=== PATIENT | female | born 1940 | race African-American/Black ===

== ENCOUNTER → 2016-05-05 | Outpatient (CLI) | payer MEDICARE, OTHER ==
[2014-05-24 15:14] VITALS: BP 157/69
--- NOTE | 2016-05-05 15:24 | KCIC ---
PQRS STATEMENT One or more of the following individualized dose reduction techniques were utilized for this study: 1.Automated exposure control 2.Adjustment of the mA and/or kV according to patient size 3.Use of iterative reconstruction technique CT maxillofacial Indication: Reason For Study Reason: LEFT FACIAL SWELLING / Spl. Instructions: Non contrast facial bones ordered / History: Bump and swelling to Lt temporal area. Hx meningioma and occlusion RCA Technique: multiple contiguous axial images were obtained through the facial bones. Coronal and sagittal reformations were created. Findings: There is no facial fracture. Orbital rims are intact. Temporomandibular joints are maintained. Paranasal sinuses are clear. Ostiomeatal units are patent. Globes and orbits are within normal limits. There is metallic particulate debris superficial to the left zygomatic process, and along the frontal scalp the largest metallic foreign body on the right. There is also metallic debris within the middle ear cavity on the right. These are of indeterminate origin. Limited intracranial contents demonstrates presence of a solid mass along the cribriform plate measures 3.7 by 2.7 by 1.8 centimeters in could represent a meningioma. Impression: - Negative for facial fracture. - 3.7 centimeter solid mass along the cribriform plate possibly representing a meningioma. - Metallic radiopaque debris along the frontal scalp and within the right middle ear cavity. Electronically signed by: Roscoe Ozuna (May 05, 2016 15:23:11)
== END | disposition home or self-care (01) ==
LOC: KCIC CT 13:14
PROVIDERS: ATTEND Internal Medicine
DX: R22.0 Localized swelling, mass and lump, head (principal)
CPT/HCPCS: 70486

== ENCOUNTER 2016-06-16 15:48 | Inpatient (IN) | payer MEDICARE, OTHER ==
[~2016-06-16] VITALS: Ht 160 cm; Wt 86.2 kg
[2016-06-16 16:00] LABS: HCO3 ABG 30 mmol/L (21-28); PCO2 ABG 57 mmHg (35-46); PH ABG 7.34 (7.35-7.45); PO2 ABG 79 mmHg (65-108); SAT O2 ABG 94 % (92-99)
[2016-06-16 16:14] LABS: BASO # 0.1 x10^3/uL (0.0-0.2); BASO % 1 % (0-3); EOS % 1 % (0-3); HEMATOCRIT 35.9 % (36.0-47.0); HEMOGLOBIN 11.2 g/dL (12.0-15.5); LYMPH # 2.1 x10^3/uL (1.0-4.8); LYMPH % 26 % (24-48); MEAN CORPUSCULAR HEMOGLOBIN 27 pg (25-35); MEAN CORPUSCULAR HGB CONC 31 g/dL (31-37); MEAN CORPUSCULAR VOLUME 86 fL (79-100); MONO % 8 % (0-9); NEUT % 64 % (31-73); PLATELET COUNT 298 x10^3/uL (140-400); RED CELL DISTRIBUTION WIDTH 19.2 % (11.5-14.5)
[2016-06-16 16:29] LABS: CALCIUM 9.8 mg/dL (8.5-10.1); CREATININE 0.7 mg/dL (0.6-1.0); GFR 98.7; POTASSIUM 3.7 mmol/L (3.5-5.1)
--- NOTE | 2016-06-16 16:31 | RAD ---
Exam: AP portable chest. History: Shortness of air, cough. Comparison: 01/16/2016. Findings: Cardiac silhouette remains enlarged. No pneumothorax or pleural effusion is seen. Pulmonary vascular redistribution is seen, compatible with pulmonary vascular congestion. No focal consolidation is identified. Impression: 1. Pulmonary vascular congestion.
[2016-06-16 16:35] LABS: ALBUMIN 3.6 g/dL (3.4-5.0); ALBUMIN/GLOBULIN RATIO 0.7 (1.0-1.7); TOTAL BILIRUBIN 0.3 mg/dL (0.2-1.0); TOTAL PROTEIN 8.5 g/dL (6.4-8.2)
[2016-06-16] MEDS ORDERED: methylPREDNISolone SOD SUCC PF 125 MG/2 ML VIAL. IV ONE (16:45)
[2016-06-16] MEDS ORDERED: IPRATRPIUM/ALBUTEROL 0.5/2.5MG 3 ML NEBU. NEB ONE (16:45)
[2016-06-16 16:54] LABS: OBC FLU VALID
[2016-06-16] MEDS ORDERED: ALBUTEROL SULFATE 2.5 MG/3 ML NEBU. CONT NEB ONE (17:00)
[2016-06-16] MEDS ORDERED: FENTANYL PF 100 MCG/2 ML VIAL. IV ONE (17:00)
[2016-06-16] MEDS ORDERED: FUROSEMIDE 40 MG/4 ML VIAL. IVP ONE (17:45)
--- NOTE | 2016-06-16 17:50 | PHYS DOC ---
Past Medical History Past Medical History: COPD, Hypertension, Hypothyroid, Other Additional Past Medical Histor: neuropathy, osteoporosis, sleeping problem, chronic pain. Past Surgical History: Other Additional Past Surgical Histo: unknown Alcohol Use: None Drug Use: None Adult General Chief Complaint Chief Complaint: SHORTNESS OF BREATH HPI HPI Patient is a 75 year old female brought to the ED by a family member with a complaint of short of air for 2 days. She has had a cough. She does have COPD and has been using her breathing treatments. She is not on oxygen at home. She denies edema. She's not had heart failure. Review of Systems Review of Systems Constitutional: She has felt feverish Eyes: Denies change in visual acuity, redness, or eye pain [] HENT: Denies nasal congestion or sore throat [] Respiratory: As in history of present illness Cardiovascular: Denies chest pain or edema GI: Denies abdominal pain, nausea, vomiting, bloody stools or diarrhea [] : Denies dysuria or hematuria [] Musculoskeletal: Denies back pain or joint pain [] Integument: Denies rash or skin lesions [] Neurologic: Denies headache, focal weakness or sensory changes [] Current Medications Current Medications Current Medications Medications (Trade) Dose Ordered Sig/Juanita Start Time Stop Time Status Last Admin Dose Admin Albuterol Sulfate (Ventolin Neb Soln) 10 mg 1X ONCE 06/16/16 17:00 06/16/16 17:01 DC 06/16/16 16:33 10 MG Albuterol/ Ipratropium (Duoneb) 3 ml 1X ONCE 06/16/16 16:45 06/16/16 16:46 DC 06/16/16 16:33 3 ML Fentanyl Citrate (Fentanyl 2ml Vial) 50 mcg 1X ONCE 06/16/16 17:00 06/16/16 17:01 DC 06/16/16 17:25 50 MCG Furosemide (Lasix) 40 mg 1X ONCE 06/16/16 17:45 06/16/16 17:46 DC 06/16/16 19:13 40 MG Methylprednisolone Sodium Succinate (Solu-Medrol 125mg Vial) 80 mg 1X ONCE 06/16/16 16:45 06/16/16 16:46 DC 06/16/16 17:25 80 MG Allergies Allergies Allergies Coded Allergies Type Severity Reaction Last Updated Verified Penicillins Allergy Intermediate Rash 06/16/16 Yes ibuprofen Allergy Intermediate rash 05/24/14 Yes Physical Exam Physical Exam Constitutional: Well developed, well nourished, speaking 2-3 words, appears to have mild to moderate dyspnea, HENT: Normocephalic, atraumatic, bilateral external ears normal, nose normal. [] Eyes: conjunctiva normal, no discharge. [] Neck: Normal range of motion, no stridor. [] Cardiovascular:Heart rate regular rhythm, no murmur [] Lungs & Thorax: Breath sounds present bilaterally, mildly diminished, prolonged expiratory phase, expiratory wheezes present throughout Abdomen: Bowel sounds normal, soft, no tenderness, no masses, no pulsatile masses. [] Skin: Warm, dry, no erythema, no rash. [] Extremities: No tenderness, no cyanosis, no clubbing, ROM intact, no edema. [] Neurologic: Alert and oriented X 3, normal motor function, normal sensory function, no focal deficits noted. [] Current Patient Data Vital Signs Vital Signs Date Time Temp Pulse Resp B/P Pulse Ox O2 Delivery O2 Flow Rate FiO2 06/16/16 17:30 92 26 185/81 99 Nasal Cannula 2 06/16/16 15:48 98.2 98.2 Lab Values Laboratory Tests Test 06/16/16 15:55 06/16/16 16:00 06/16/16 16:28 White Blood Count 8.0x10^3/uL (4.0-11.0) Red Blood Count 4.20x10^6/uL (3.50-5.40) Hemoglobin 11.2g/dL (12.0-15.5) L Hematocrit 35.9% (36.0-47.0) L Mean Corpuscular Volume 86fL (79-100) Mean Corpuscular Hemoglobin 27pg (25-35) Mean Corpuscular Hemoglobin Concent 31g/dL (31-37) Red Cell Distribution Width 19.2% (11.5-14.5) H Platelet Count 298x10^3/uL (140-400) Neutrophils (%) (Auto) 64% (31-73) Lymphocytes (%) (Auto) 26% (24-48) Monocytes (%) (Auto) 8% (0-9) Eosinophils (%) (Auto) 1% (0-3) Basophils (%) (Auto) 1% (0-3) Neutrophils # (Auto) 5.2x10^3uL (1.8-7.7) Lymphocytes # (Auto) 2.1x10^3/uL (1.0-4.8) Monocytes # (Auto) 0.6x10^3/uL (0.0-1.1) Eosinophils # (Auto) 0.1x10^3/uL (0.0-0.7) Basophils # (Auto) 0.1x10^3/uL (0.0-0.2) Sodium Level 148mmol/L (136-145) H Potassium Level 3.7mmol/L (3.5-5.1) Chloride Level 107mmol/L (98-107) Carbon Dioxide Level 33mmol/L (21-32) H Anion Gap 8 (6-14) Blood Urea Nitrogen 9mg/dL (7-20) Creatinine 0.7mg/dL (0.6-1.0) Estimated GFR (Cockcroft-Gault) 98.7 BUN/Creatinine Ratio 13 (6-20) Glucose Level 92mg/dL (70-99) Calcium Level 9.8mg/dL (8.5-10.1) Total Bilirubin 0.3mg/dL (0.2-1.0) Aspartate Amino Transferase (AST) 16U/L (15-37) Alanine Aminotransferase (ALT) 13U/L (14-59) L Alkaline Phosphatase 86U/L (46-116) Troponin I Quantitative < 0.017ng/mL (0.000-0.055) FT-Vjf-R-Type Natriuretic Peptide 116pg/mL (0-449) Total Protein 8.5g/dL (6.4-8.2) H Albumin 3.6g/dL (3.4-5.0) Albumin/Globulin Ratio 0.7 (1.0-1.7) L O2 Saturation 94% (92-99) Arterial Blood pH 7.34 (7.35-7.45) L Arterial Blood pCO2 at Patient Temp 57mmHg (35-46) H Arterial Blood pO2 at Patient Temp 79mmHg (65-108) Arterial Blood HCO3 30mmol/L (21-28) H Arterial Blood Base Excess 4mmol/L (-3-3) H FiO2 32.0 Influenza Type A Antigen Negative (NEGATIVE) Influenza Type B Antigen Negative (NEGATIVE) Laboratory Tests 06/16/16 15:55 Laboratory Tests 06/16/16 15:55 EKG EKG [] Radiology/Procedures Radiology/Procedures One view chest x-ray read by me. No acute cardiopulmonary process. [] Course & Med Decision Making Course & Med Decision Making Pertinent Labs and Imaging studies reviewed. (See chart for details) ABG on 3 L. PH 7.34 PCO2 57 PO2 79 Patient with COPD history presents with dyspnea for 2 days. She was started on a continuous albuterol with DuoNeb. She was saturating at 100% on 3 L I turned her down to 2 L. After her continuous nebulizer she felt a little better but is still wheezy and still mildly dyspneic with talking. She was also given IV steroids. I discussed with the patient being admitted to the hospital for treatment of her COPD exacerbation and she is agreeable to that. Discussed the case with Dr. Valerio, the patient's physician, who will admit the patient. I wrote bridge orders. [] Dragon Disclaimer Dragon Disclaimer This electronic medical record was generated, in whole or in part, using a voice recognition dictation system. Departure Departure Impression: Primary Impression: COPD with acute exacerbation Disposition: ADMITTED INPATIENT Admitting Physician: Matias Valerio Condition: GUARDED Referrals: MATIAS VALERIO MD (PCP) PASTORA RAY MD Jun 16, 2016 17:50
--- NOTE | 2016-06-16 18:00 | ACF ---
Admission Forms Criteria COPD Clinical Indications for Admission to Inpatient Care (Place 'X' for any and all applicable criteria): Admission is indicated for ANY ONE of the following (1)(2)(3): [X]I. Acute exacerbation by high-risk comorbidity (e.g., pneumonia, dysrhythmia, heart failure, pleural effusion, pneumothorax) or severe underlying COPD (e.g., steroid dependent) [ ]II. Inpatient admission required rather than observation care (see Chronic Obstructive Pulmonary Disease: Observation Care) because of ANY ONE of the following: [ ]a) New or pre-existing signs or symptoms of COPD (eg, dyspnea or Tachypnea at rest or with minimal activity) that persist despite outpatient and observation care treatment [ ]b) New-onset hypoxemia (room air SaO2 less than 90%, PO2 less than 60 mm Hg (8.0 kPa)) that persists despite outpatient and observation care treatment [ ]c) Worsening of pre-existing hypoxemia (eg, new or increased requirement for supplemental oxygen to maintain oxygenation at baseline level) that persists despite outpatient and observation care treatment, with oxygen treatment needs performable only in acute inpatient setting [ ]d) Hypercarbia (PCO2 greater than 40 mm Hg (5.3 kPa))-induced respiratory acidosis (pH less than 7.35) that persists despite outpatient and observation care treatment [ ]e) Supplemental oxygen or respiratory treatments for over 24 hours that are performable only in acute inpatient setting [ ]f) Chest tube placement with active evacuation (e.g., suction, drainage) (5) [ ]g) Other condition, treatment or monitoring requiring inpatient admission [ ]III. Planned invasive surgical or diagnostic procedures requiring acute- care hospitalization [ ]IV. Acute respiratory failure (e.g., uncompensated hypercarbia, severe hypoxemia) [ ]V. Severe comorbid condition (e.g., severe steroid myopathy, acute vertebral fracture) that has acutely worsened pulmonary function [ ]. Confusion state, lethargy, obtundation, stupor or coma Extended stay beyond goal length of stay may be needed for (31)(32): [ ]a ) Respiratory Failure. [ ]b) Severe or persisting hypoxemia or hypercarbia [ ]c) Severe or persistent dyspnea [ ]d) Comorbidities (e.g. chronic heart failure, atrial fibrillation with rapid response, pneumonia) [ ]e) Malnutrition The original [facility] content created by [facility] has been revised. The portions of the content which have been revised are identified through the use of italic text or in bold, and [facility] has neither reviewed nor approved the modified material. All other unmodified content is copyright [facility]. Please see references footnoted in the original [facility] edition 2016 Admission Criteria Met?: Yes SUNDAY CHAPIN Jun 16, 2016 18:00
[2016-06-16] MEDS: IPRATRPIUM/ALBUTEROL 0.5/2.5MG 3 ML NEBU. NEB SCH (20:00)
[2016-06-16] MEDS ORDERED: ACETAMINOPHEN 325 MG TABLET. PO PRN (20:30)
[2016-06-16] MEDS ORDERED: TIZA4TAB (20:46)
[2016-06-16] MEDS ORDERED: BENA40TA2 (20:46)
[2016-06-16] MEDS ORDERED: AMLO10TA2 (20:46)
[2016-06-16] MEDS ORDERED: HYDR-2762 PO (20:46)
[2016-06-16] MEDS ORDERED: FURO40TA4 (20:46)
[2016-06-16] MEDS ORDERED: ZOLP5TAB5 (20:46)
[2016-06-16] MEDS ORDERED: ACET325T9 PO (20:47)
[2016-06-16] MEDS: tiZANidine 4 MG TABLET. PO PRN (21:42)
[2016-06-16] MEDS: ZOLPIDEM 5 MG TABLET. PO PRN (21:42)
[2016-06-16] MEDS: HYDROCODONE/APAP 7.5/325MG TABLET. PO PRN (21:43)
[2016-06-16] MEDS: methylPREDNISolone SOD SUCC PF 125 MG/2 ML VIAL. IV SCH (21:43)
[2016-06-16 23:00] VITALS: BP 160/70
[2016-06-17] VITALS (7 sets, daily range): BP systolic 127–168; BP diastolic 64–85
--- NOTE | 2016-06-17 02:54 | EKG ---
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
[2016-06-17] MEDS: IPRATRPIUM/ALBUTEROL 0.5/2.5MG 3 ML NEBU. NEB SCH ×5 (07:27→20:51)
[2016-06-17] MEDS: HYDROCODONE/APAP 7.5/325MG TABLET. PO PRN ×2 (09:34→21:35)
[2016-06-17] MEDS: AMLODIPINE BESYLATE 10 MG TABLET. PO SCH (09:35)
[2016-06-17] MEDS: FUROSEMIDE 40 MG TABLET. PO SCH (09:36)
[2016-06-17] MEDS: DULOXETINE HCL 30 MG CAPSULE.DR. PO SCH (09:37)
[2016-06-17] MEDS: GABAPENTIN 300 MG CAPSULE. PO SCH ×3 (09:37→21:34)
[2016-06-17] MEDS: CLONAZEPAM 0.5 MG TABLET PO SCH ×2 (09:38→21:34)
[2016-06-17] MEDS: methylPREDNISolone SOD SUCC PF 125 MG/2 ML VIAL. IV SCH ×2 (09:40→21:34)
[2016-06-17] MEDS ORDERED: IOHEXOL 300 MG/ML 75 ML VIAL IV ONE (10:00)
[2016-06-17] MEDS ORDERED: CONTRAST GIVEN MC PRN (10:00)
--- NOTE | 2016-06-17 10:08 | PDOC ---
OBJECTIVE Vital Signs Vital Signs Date Time Temp Pulse Resp B/P Pulse Ox O2 Delivery O2 Flow Rate FiO2 06/17/16 09:35 72 154/68 06/17/16 09:34 Nasal Cannula 2.0 06/17/16 08:00 Nasal Cannula 2.0 06/17/16 07:28 93 Nasal Cannula 2.0 06/17/16 07:08 97.9 72 20 154/68 94 Nasal Cannula 3.0 97.9 06/17/16 03:00 96.8 85 18 127/64 94 Nasal Cannula 96.8 06/16/16 23:10 Nasal Cannula 3.0 06/16/16 23:00 99.3 90 18 160/70 95 99.3 06/16/16 22:40 17 Nasal Cannula 3.0 06/16/16 21:43 18 Nasal Cannula 3.0 06/16/16 21:34 98 Nasal Cannula 2.0 06/16/16 18:30 80 26 169/74 98 Nasal Cannula 2 06/16/16 18:00 80 24 168/79 100 Nasal Cannula 2 06/16/16 17:30 92 26 185/81 99 Nasal Cannula 2 06/16/16 17:00 80 28 178/85 97 Nasal Cannula 3 06/16/16 16:15 94 Nasal Cannula 2.0 06/16/16 16:00 82 27 193/95 97 Nasal Cannula 3 06/16/16 15:56 99 Nasal Cannula 3.0 06/16/16 15:48 98.2 90 28 193/95 96 Nasal Cannula 3 98.2 I & O Intake and Output 06/17/16 07:00 Intake Total 240 ml Output Total 200 ml Balance 40 ml Intake Oral 240 ml Output Urine Total 200 ml ASSESSMENT/PLAN Assessment/Plan [id number] H&P dictated Problems: COMMENT Lab Laboratory Tests Test 06/16/16 15:55 06/16/16 16:00 06/16/16 16:28 White Blood Count 8.0x10^3/uL (4.0-11.0) Red Blood Count 4.20x10^6/uL (3.50-5.40) Hemoglobin 11.2g/dL (12.0-15.5) Hematocrit 35.9% (36.0-47.0) Mean Corpuscular Volume 86fL (79-100) Mean Corpuscular Hemoglobin 27pg (25-35) Mean Corpuscular Hemoglobin Concent 31g/dL (31-37) Red Cell Distribution Width 19.2% (11.5-14.5) Platelet Count 298x10^3/uL (140-400) Neutrophils (%) (Auto) 64% (31-73) Lymphocytes (%) (Auto) 26% (24-48) Monocytes (%) (Auto) 8% (0-9) Eosinophils (%) (Auto) 1% (0-3) Basophils (%) (Auto) 1% (0-3) Neutrophils # (Auto) 5.2x10^3uL (1.8-7.7) Lymphocytes # (Auto) 2.1x10^3/uL (1.0-4.8) Monocytes # (Auto) 0.6x10^3/uL (0.0-1.1) Eosinophils # (Auto) 0.1x10^3/uL (0.0-0.7) Basophils # (Auto) 0.1x10^3/uL (0.0-0.2) Sodium Level 148mmol/L (136-145) Potassium Level 3.7mmol/L (3.5-5.1) Chloride Level 107mmol/L (98-107) Carbon Dioxide Level 33mmol/L (21-32) Anion Gap 8 (6-14) Blood Urea Nitrogen 9mg/dL (7-20) Creatinine 0.7mg/dL (0.6-1.0) Estimated GFR (Cockcroft-Gault) 98.7 BUN/Creatinine Ratio 13 (6-20) Glucose Level 92mg/dL (70-99) Calcium Level 9.8mg/dL (8.5-10.1) Total Bilirubin 0.3mg/dL (0.2-1.0) Aspartate Amino Transf (AST/SGOT) 16U/L (15-37) Alanine Aminotransferase (ALT/SGPT) 13U/L (14-59) Alkaline Phosphatase 86U/L (46-116) Troponin I Quantitative < 0.017ng/mL (0.000-0.055) WW-[id number]-Type Natriuretic Peptide 116pg/mL (0-449) Total Protein 8.5g/dL (6.4-8.2) Albumin 3.6g/dL (3.4-5.0) Albumin/Globulin Ratio 0.7 (1.0-1.7) O2 Saturation 94% (92-99) Arterial Blood pH 7.34 (7.35-7.45) Arterial Blood pCO2 at Patient Temp 57mmHg (35-46) Arterial Blood pO2 at Patient Temp 79mmHg (65-108) Arterial Blood HCO3 30mmol/L (21-28) Arterial Blood Base Excess 4mmol/L (-3-3) FiO2 32.0 Influenza Type A Antigen Negative (NEGATIVE) Influenza Type B Antigen Negative (NEGATIVE) MATIAS VALERIO MD Jun 17, 2016 10:08
--- NOTE | 2016-06-17 10:56 | PREOP HP ---
DATE OF SERVICE: HISTORY OF PRESENT ILLNESS: The patient is in room 672. She is a 75-year-old lady who presented to the Emergency Room yesterday due to increasing shortness of breath. She has been coughing and having difficulty breathing, but her difficulty breathing and shortness of breath became much worse. She could not get her breath and presented to the Emergency Room. She was complaining of pleuritic type chest pain with deep breath and feels that her breathing and chest is very tight, cannot take a deep breath. She does have a previous history of COPD but has never had required hospitalization for COPD exacerbation. She does have pain in the lower extremities, but it seems more of a neuropathic pain. She denies long travel recently. Denies calf pain and denies swelling in the lower extremities. PAST MEDICAL HISTORY: Significant for polymyalgia rheumatica diagnosed over the last year. She has been on steroids with a dose of prednisone 10 mg lately. She does see Dr. Enriquez, Rheumatology. She does have hypertension, COPD, previous history of lung nodule that has been stable, history of peripheral neuropathy, and chronic back pain and neck pain. She does have a history of meningioma, large, in the past that has required radiation treatment at . Since then, she has stopped following up for the last 3 years. Most recently, she has been complaining of increasing headache. She does have osteoarthritis, degenerative joint disease, osteoporosis, hypothyroidism, and insomnia. SOCIAL HISTORY: She drinks alcohol occasionally. She cut down significantly on smoking but still smokes periodically. She does have a previous long history of smoking. Denies other drug use. FAMILY HISTORY: Positive for hypertension and coronary artery disease. REVIEW OF SYSTEMS: CONSTITUTIONAL: She stated that she had felt feverish but denies chills, and there is no weight loss. EYES: Denies visual changes. HEENT: Denies nasal congestion or sore throat. RESPIRATORY: She does have increasing shortness of breath, cough, and pleuritic chest pain with deep breath in the retrosternal area. No chest wall pain. CARDIOVASCULAR: Denies chest pain at rest unless she is trying to take a deep breath. Denies edema. She has no prior history of coronary artery disease herself. GASTROINTESTINAL: She denies abdominal pain, nausea, vomiting, bloody stool, or diarrhea. GENITOURINARY: Denies dysuria. She does have stress incontinence. MUSCULOSKELETAL: She does have chronic back pain and arthritis pain. All body ache and pain in her feet, neuropathy. NEUROLOGY: She does have a headache, worse lately. She was referred for MRI of the brain and Neurology consult as outpatient, but she has not gotten to do that yet. She denies weakness on one side or new sensory changes. ALLERGIES: SHE IS ALLERGIC TO PENICILLIN AND IBUPROFEN. PHYSICAL EXAMINATION: CONSTITUTIONAL: She is well-developed, well-nourished. HEENT: Normocephalic, atraumatic. EYES: Conjunctivae are normal with no discharge. NECK: Supple, no stridor. CARDIOVASCULAR: Regular rate and rhythm. LUNGS: Decreased breath sounds, very few scattered wheezes. ABDOMEN: Soft, nontender. No organomegaly, no masses, no bruits, no ascites. SKIN: Warm and dry. EXTREMITIES: No edema, clubbing, or cyanosis. Negative Alicea sign, no calf pain. NEUROLOGIC: Alert and oriented. She moves all her extremities without difficulty. She does not have any focal deficit. IMPRESSION: 1. Shortness of breath with hypoxia, could due to chronic obstructive pulmonary disease exacerbation, but due to the acuteness of her symptoms and the degree of her hypoxia, we will check CT to rule out pulmonary embolus. 2. Previous history of pulmonary nodules, followed by Pulmonary and has not had any changes over the last several years. 3. Headache with previous history of large meningioma. We will ask Neurology to see and obtain MRI of the brain. 4. History of polymyalgia rheumatica, on chronic steroids. She is currently on IV steroids for chronic obstructive pulmonary disease. 5. Chronic obstructive pulmonary disease exacerbation and bronchitis. 6. Peripheral neuropathy. 7. Hypertension, hypertensive cardiovascular disease. 8. Osteoarthritis. 9. Hypothyroidism. MATIAS VALERIO MD DR: RONALD/obinna JOB#: [id number] / [id number]
--- NOTE | 2016-06-17 12:52 | CONS ---
DATE OF CONSULTATION: 06/17/2016 ATTENDING PHYSICIAN: Dr. Melyssa Saleh. REASON FOR CONSULTATION: Dyspnea. HISTORY OF PRESENT ILLNESS: This is a 75-year-old who came to Emergency Room with increasing shortness of breath for the past few days. She has been coughing, but the cough has been nonproductive. She also was having chest pain substernally. She has history of DVT about 5 years ago for which she was treated with warfarin and was subsequently taken off after it was reportedly resolved. She said she has some swelling in her left lower extremity as well with some pain and tenderness. She underwent CT angiogram. The report has not been dictated yet, but I have briefly looked at it, and I did not see any obvious pulmonary embolism. There is a nodule in the right middle lobe. There is also faint patchy infiltrate in the right upper lobe and nodular infiltrate in the left lung close to pleura. Consultation was requested for further evaluation and management. She also takes chronic steroids for polymyalgia rheumatica. PAST MEDICAL HISTORY: Polymyalgia rheumatica. She has been on prednisone 10 mg daily. History of underlying chronic obstructive pulmonary disease, history of DVT involving the left lower extremity, history of DJD, osteoporosis, hypothyroidism, and insomnia. SOCIAL HISTORY: She drinks occasionally. She has history of tobaccoism for at least 30 years before quitting more than 10 years ago. FAMILY HISTORY: Noncontributory to lungs. REVIEW OF SYSTEMS: Twelve-point system obtained. Pertinent positives discussed in my history of present illness, otherwise noncontributory. All systems that were negative were reviewed as well. ALLERGIES: PENICILLIN AND IBUPROFEN. CURRENT MEDICATIONS: Reviewed as listed in the MRAD including steroids and DuoNebs. PHYSICAL EXAMINATION: VITAL SIGNS: Blood pressure 168/83, afebrile, and pulse oximetry 95% on 3 liters. NECK: Supple. LUNGS: Diminished breath sounds. No wheezing. CARDIOVASCULAR: Regular rate and rhythm. ABDOMEN: Soft, nontender, and obese. EXTREMITIES: With some tenderness and swelling in the left lower extremity. LABORATORY DATA: Reviewed. White cell count 8.0, hemoglobin 11.2, and platelets are 298. ABGs with a pH of 7.34, pCO2 of 57, and pO2 of 79 on 32% FIO2. BUN and creatinine are normal. IMPRESSION: 1. Acute on chronic hypercapnic respiratory failure secondary to chronic obstructive pulmonary disease exacerbation and mild patchy pneumonitis. 2. History of left lower extremity treated 5 years ago with Coumadin. Now comes in with some swelling in the left lower extremity and some chest pain. CT angiogram with no definite pulmonary embolism. We will obtain followup venous Dopplers of left lower extremity. 3. Mild patchy pneumonitis. 4. History of polymyalgia rheumatica, on chronic steroids. RECOMMENDATIONS: 1. Continue with present nebulizer treatment. 2. Continue with oxygen. 3. Hold off on BiPAP for now and follow up ABGs. 4. Empiric antibiotics. 5. IV Solu-Medrol. 6. Venous Dopplers of left lower extremity. 7. Follow the official CT chest results to make sure that the right lung nodule is stable. YOLA PARMAR MD DR: ESTIVEN/obinna JOB#: [id number] / [id number]
--- NOTE | 2016-06-17 13:04 | RAD ---
CT of the chest with contrast, 06/17/2016: History: Shortness of breath Multidetector CT imaging was performed following an IV bolus injection of iodinated contrast material. Multiplanar reconstructions were produced including coronal MIP images. Comparison is made to a study from 08/29/2015 No filling defects are seen in the central pulmonary arteries to suggest pulmonary emboli. There is moderate calcific plaquing of the thoracic aorta without evidence of aneurysm. Moderate scattered coronary calcifications are present. The heart is mildly enlarged. Several small mediastinal lymph nodes are identified without evidence of pathologic enlargement. The left lobe of the thyroid gland is surgically absent. There is a 10-11 mm nodule in the right middle lobe which is unchanged on studies dating back to at least 12/21/2007. This suggests a benign etiology. There are multiple other scattered nodular opacities in the lungs which have developed since 08/29/2015. These include a 6 mm mildly irregular nodule in the lateral aspect of the left lower lobe as seen on image 70 of series #3, a 4 mm nodule in the left lower lobe as seen on image 65 and a 6 mm nodule in the lateral aspect of left upper lobe as seen on image 56. There are additional smaller scattered tree-in-bud type opacities in both lungs. For example, in the posterior aspect of the right upper lobe as seen on image 45 and in the right lower lobe on image 70. There is underlying emphysema in the lungs. No pleural fluid is evident. A small hepatic cyst is again noted. There are moderate scattered degenerative changes in the spine. Old healed rib fractures are present on the right. IMPRESSION: 1. No CT evidence of central pulmonary emboli. 2. Moderate coronary artery calcifications. 3. Emphysema. 4. Stable 1 cm right middle lobe pulmonary nodule. 5. New mild scattered tree-in-bud and nodular pulmonary opacities. The findings suggest infection and/or small airway disease. A neoplastic etiology is less likely. CT follow-up is suggested. PQRS Compliance Statement: One or more of the following individualized dose reduction techniques were utilized for this examination: 1. Automated exposure control 2. Adjustment of the mA and/or kV according to patient size 3. Use of iterative reconstruction technique
[2016-06-17] MEDS: LEVOFLOXACIN 500 MG TABLET PO SCH (14:03)
[2016-06-17] MEDS ORDERED: DIAZEPAM 10 MG/2 ML DISP.SYRIN. IV ONE (14:15)
--- NOTE | 2016-06-17 14:29 | PDOC2 ---
NEUROLOGY CONSULT Date of Admission Date of Admission DATE: 06/17/16 TIME: 14:23 Reason for Consult Reason for Consult: Headache, history of meningioma Referring Physician Referring Physician: Dr. Saleh Source Source: Chart review, Patient History of Present Illness History of Present Illness The patient is a 75-year-old right-handed female admitted for COPD exacerbation who has a several month history of headaches. She describes left temporal pain radiating down the cheek and over into the forehead. She has a history of meningioma with radiation treatment at . She denies photo phonophobia or nausea with the headaches. She does have a history of fibromyalgia. There is no history of stroke, seizure, or head injury. Past Medical History Cardiovascular: HTN Pulmonary: COPD CENTRAL NERVOUS SYSTEM: Periperal neuropathy, Other (meningioma, treated with radiation treatments) Musculoskeletal: Osteoarthritis Rheumatologic: Fibromyalgia Endocrine: Hypothyroidism Past Surgical History Past Surgical History: No pertinent history Family History Family History: CAD Social History Social History She quit using alcohol and tobacco several years ago Current Medications Current Medications Current Medications Albuterol/ Ipratropium (Duoneb) 3 ml 1X ONCE NEB Last administered on 16:33; Start 06/16/16 at 16:45; Stop 06/16/16 at 16:46; Status DC Methylprednisolone Sodium Succinate (Solu-Medrol 125mg Vial) 80 mg 1X ONCE IV Last administered on 06/16/16 17:25; Start 06/16/16 at 16:45; Stop 06/16/16 at 16: 46; Status DC Albuterol Sulfate (Ventolin Neb Soln) 10 mg 1X ONCE CONT NEB Last administered on 06/16/16 16:33; Start 06/16/16 at 17:00; Stop 06/16/16 at 17:01; Status DC Fentanyl Citrate (Fentanyl 2ml Vial) 50 mcg 1X ONCE IV Last administered on 17:25; Start 06/16/16 at 17:00; Stop 06/16/16 at 17:01; Status DC Furosemide (Lasix) 40 mg 1X ONCE IVP Last administered on 06/16/16 19:13; Start 06/16/16 at 17:45; Stop 06/16/16 at 17:46; Status DC Albuterol/ Ipratropium (Duoneb) 3 ml RTQID NEB Last administered on 06/17/16 11 :12; Start 06/16/16 at 20:00; Stop 06/17/16 at 12:44; Status DC Methylprednisolone Sodium Succinate (Solu-Medrol 125mg Vial) 125 mg Q12HR IV Last administered on 06/17/16 09:40; Start 06/16/16 at 21:00 Albuterol/ Ipratropium (Duoneb) 3 ml RTQID NEB Last administered on 06/17/16 07 :27; Start 06/17/16 at 08:00 Acetaminophen (Tylenol) 650 mg PRN Q4HRS PRN PO PAIN; Start 06/16/16 at 20:30 Amlodipine Besylate (Norvasc) 10 mg DAILY08 PO Last administered on 06/17/16 09 :35; Start 06/17/16 at 08:00 Furosemide (Lasix) 40 mg DAILY08 PO Last administered on 06/17/16 09:36; Start 06/17/16 at 08:00 Acetaminophen/ Hydrocodone Bitart (Lortab 7.5/325) 1 tab PRN Q8HRS PRN PO PAIN Last administered on 06/17/16 09:34; Start 06/16/16 at 20:30 Tizanidine HCl (Zanaflex) 4 mg PRN Q8HRS PRN PO MUSCLE SPASMS Last administered on 06/16/16 21:42; Start 06/16/16 at 20:30 Zolpidem Tartrate (Ambien) 5 mg QHS PRN PO SLEEP Last administered on 06/16/16 21:42; Start 06/16/16 at 21:00 Clonazepam (Klonopin) 0.5 mg BID PO Last administered on 06/17/16 09:38; Start 06/17/16 at 10:00 Gabapentin (Neurontin) 300 mg TID PO Last administered on 06/17/16 14:03; Start 06/17/16 at 10:00 Duloxetine HCl (Cymbalta) 60 mg DAILY PO Last administered on 06/17/16 09:37; Start 06/17/16 at 10:00 Iohexol (Omnipaque 300 Mg/ml) 75 ml 1X ONCE IV Last administered on 06/17/16 10:14; Start 06/17/16 at 10:00; Stop 06/17/16 at 10:01; Status DC Info (Do NOT chart on this entry -- for MONITORING) 1 each PRN DAILY PRN MC SEE COMMENTS; Start 06/17/16 at 10:00; Stop 06/19/16 at 09:59 Levofloxacin (Levaquin) 500 mg DAILY06 PO Last administered on 06/17/16 14:03; Start 06/17/16 at 13:00 Diazepam (Valium) 10 mg 1X ONCE IV Last administered on 06/17/16 14:10; Start 06/17/16 at 14:15; Stop 06/17/16 at 14:16; Status DC Active Scripts Active Reported Tylenol (Acetaminophen) 325 Mg Tablet 2 Tab PO PRN Q4HRS Hydrocodone-Apap 7.5-325 (Hydrocodone Bit/Acetaminophen) 1 Each Tablet 1 Tab PO Q8HRS PRN Tizanidine Hcl 4 Mg Tablet Zolpidem Tartrate 5 Mg Tablet Furosemide 40 Mg Tablet Benazepril Hcl 40 Mg Tablet Amlodipine Besylate 10 Mg Tablet Allergies Allergies: Coded Allergies: Penicillins (Verified Allergy, Intermediate, Rash, 06/16/16) ibuprofen (Verified Allergy, Intermediate, rash, 05/24/14) ROS Review of System Patient denies fevers, chills, weight loss, dyspnea, angina, abdominal pain, change in bowels, or dysuria. 14 point review of systems is negative. Physical Exam Physical Examination PHYSICAL EXAMINATION: Vital signs: see above. General appearance is normal and in no acute distress. HEENT: Normocephalic and nontraumatic. Eyes, nose, ears, and throat are unremarkable. Neck is supple. No lymphadenopathy. No bruits are heard over the carotid artery. No crepitus. NEUROLOGICAL EXAMINATION: Mental Status Examination: Alert. Oriented to time, place, and person. Answers questions and follows commends. Pupils are equal round and reactive to light and accommodation. Funduscopic exam: No papilledema. Extraocular movements are intact. Visual field exam shows no defect on the direct confrontation. No motor or sensory deficits on the facial exam. Uvula in the midline and the soft palate elevated symmetrically. No deviation of the tongue to any direction. Gross hearing is normal. Shoulder shrug normal. Muscle tone is normal. Muscle strength is 5. Deep tendon reflexes are 2+ all around. Plantar reflex is with flexion response bilaterally. Pbwiur-[id number] test performance is accurate. Tandem walk test is accurate. Alternative movements are accurate. Romberg test is negative. Gait is normal. Sensory exam shows no deficits. No cerebellar signs are elicited. Vitals VITALS Vital Signs Date Time Temp Pulse Resp B/P Pulse Ox O2 Delivery O2 Flow Rate FiO2 06/17/16 11:13 Nasal Cannula 2.0 06/17/16 10:59 98.2 84 20 168/83 95 98.2 Labs Labs Laboratory Tests Test 06/16/16 15:55 06/16/16 16:00 06/16/16 16:28 White Blood Count 8.0x10^3/uL (4.0-11.0) Red Blood Count 4.20x10^6/uL (3.50-5.40) Hemoglobin 11.2g/dL (12.0-15.5) Hematocrit 35.9% (36.0-47.0) Mean Corpuscular Volume 86fL (79-100) Mean Corpuscular Hemoglobin 27pg (25-35) Mean Corpuscular Hemoglobin Concent 31g/dL (31-37) Red Cell Distribution Width 19.2% (11.5-14.5) Platelet Count 298x10^3/uL (140-400) Neutrophils (%) (Auto) 64% (31-73) Lymphocytes (%) (Auto) 26% (24-48) Monocytes (%) (Auto) 8% (0-9) Eosinophils (%) (Auto) 1% (0-3) Basophils (%) (Auto) 1% (0-3) Neutrophils # (Auto) 5.2x10^3uL (1.8-7.7) Lymphocytes # (Auto) 2.1x10^3/uL (1.0-4.8) Monocytes # (Auto) 0.6x10^3/uL (0.0-1.1) Eosinophils # (Auto) 0.1x10^3/uL (0.0-0.7) Basophils # (Auto) 0.1x10^3/uL (0.0-0.2) Sodium Level 148mmol/L (136-145) Potassium Level 3.7mmol/L (3.5-5.1) Chloride Level 107mmol/L (98-107) Carbon Dioxide Level 33mmol/L (21-32) Anion Gap 8 (6-14) Blood Urea Nitrogen 9mg/dL (7-20) Creatinine 0.7mg/dL (0.6-1.0) Estimated GFR (Cockcroft-Gault) 98.7 BUN/Creatinine Ratio 13 (6-20) Glucose Level 92mg/dL (70-99) Calcium Level 9.8mg/dL (8.5-10.1) Total Bilirubin 0.3mg/dL (0.2-1.0) Aspartate Amino Transf (AST/SGOT) 16U/L (15-37) Alanine Aminotransferase (ALT/SGPT) 13U/L (14-59) Alkaline Phosphatase 86U/L (46-116) Troponin I Quantitative < 0.017ng/mL (0.000-0.055) XR-Nei-U-Type Natriuretic Peptide 116pg/mL (0-449) Total Protein 8.5g/dL (6.4-8.2) Albumin 3.6g/dL (3.4-5.0) Albumin/Globulin Ratio 0.7 (1.0-1.7) O2 Saturation 94% (92-99) Arterial Blood pH 7.34 (7.35-7.45) Arterial Blood pCO2 at Patient Temp 57mmHg (35-46) Arterial Blood pO2 at Patient Temp 79mmHg (65-108) Arterial Blood HCO3 30mmol/L (21-28) Arterial Blood Base Excess 4mmol/L (-3-3) FiO2 32.0 Influenza Type A Antigen Negative (NEGATIVE) Influenza Type B Antigen Negative (NEGATIVE) Laboratory Tests Test 06/16/16 15:55 06/16/16 16:00 06/16/16 16:28 White Blood Count 8.0x10^3/uL (4.0-11.0) Red Blood Count 4.20x10^6/uL (3.50-5.40) Hemoglobin 11.2g/dL (12.0-15.5) Hematocrit 35.9% (36.0-47.0) Mean Corpuscular Volume 86fL (79-100) Mean Corpuscular Hemoglobin 27pg (25-35) Mean Corpuscular Hemoglobin Concent 31g/dL (31-37) Red Cell Distribution Width 19.2% (11.5-14.5) Platelet Count 298x10^3/uL (140-400) Neutrophils (%) (Auto) 64% (31-73) Lymphocytes (%) (Auto) 26% (24-48) Monocytes (%) (Auto) 8% (0-9) Eosinophils (%) (Auto) 1% (0-3) Basophils (%) (Auto) 1% (0-3) Neutrophils # (Auto) 5.2x10^3uL (1.8-7.7) Lymphocytes # (Auto) 2.1x10^3/uL (1.0-4.8) Monocytes # (Auto) 0.6x10^3/uL (0.0-1.1) Eosinophils # (Auto) 0.1x10^3/uL (0.0-0.7) Basophils # (Auto) 0.1x10^3/uL (0.0-0.2) Sodium Level 148mmol/L (136-145) Potassium Level 3.7mmol/L (3.5-5.1) Chloride Level 107mmol/L (98-107) Carbon Dioxide Level 33mmol/L (21-32) Anion Gap 8 (6-14) Blood Urea Nitrogen 9mg/dL (7-20) Creatinine 0.7mg/dL (0.6-1.0) Estimated GFR (Cockcroft-Gault) 98.7 BUN/Creatinine Ratio 13 (6-20) Glucose Level 92mg/dL (70-99) Calcium Level 9.8mg/dL (8.5-10.1) Total Bilirubin 0.3mg/dL (0.2-1.0) Aspartate Amino Transf (AST/SGOT) 16U/L (15-37) Alanine Aminotransferase (ALT/SGPT) 13U/L (14-59) Alkaline Phosphatase 86U/L (46-116) Troponin I Quantitative < 0.017ng/mL (0.000-0.055) MN-Jmv-H-Type Natriuretic Peptide 116pg/mL (0-449) Total Protein 8.5g/dL (6.4-8.2) Albumin 3.6g/dL (3.4-5.0) Albumin/Globulin Ratio 0.7 (1.0-1.7) O2 Saturation 94% (92-99) Arterial Blood pH 7.34 (7.35-7.45) Arterial Blood pCO2 at Patient Temp 57mmHg (35-46) Arterial Blood pO2 at Patient Temp 79mmHg (65-108) Arterial Blood HCO3 30mmol/L (21-28) Arterial Blood Base Excess 4mmol/L (-3-3) FiO2 32.0 Influenza Type A Antigen Negative (NEGATIVE) Influenza Type B Antigen Negative (NEGATIVE) Assessment/Plan Assessment/Plan Impression: Tension headaches Fibromyalgia History of meningioma Recommendations: Await MRI Await sedimentation rate Treatment of headaches would be difficult because she is already on several medications for fibromyalgia including gabapentin, Cymbalta, and tizanidine. These are usually the best medications for tension headache as well. I may consider increasing the dose of the gabapentin or ties remain. I do not feel comfortable increasing the dose of Cymbalta. Thank you for letting me help with the patient's care. CHYNA GURROLA MD Jun 17, 2016 14:28
[2016-06-17] MEDS ORDERED: GADOBUTROL 7.5 MMOL/7.5 ML VIAL IV ONE (14:45)
--- NOTE | 2016-06-17 15:50 | RAD ---
PROCEDURE MRI brain without and with contrast HISTORY Meningioma, headache TECHNIQUE Multiplanar, multi sequential pre and post contrast MR imaging was performed of the brain. Contrast: 7.5 cc Gadavist COMPARISON None available FINDINGS There is enhancing extra-axial mass of the floor of the anterior cranial fossa with bilateral parafalcine extent, extending along the planum sphenoidale and cribriform plate, also extent to the suprasellar cistern and contacting the superior aspect of the pituitary gland. There is also contact and mild displacement posteriorly of the infundibulum. Pre chiasmatic optic nerves are apparently displaced inferiorly although poorly distinguished on this exam. Mass measures up to 3.9 cm AP by 2.6 cm cc by 3.4 cm transverse. Mass measures slightly larger on the order of 0.2 cm in the transverse and AP planes. Masses seen along the anterior surfaces of the anterior cerebral arteries. There is new T2 and FLAIR hyperintense signal abnormality of the adjacent right frontal lobe. There is small focus of encephalomalacia with cortical involvement of the right frontal lobe as seen previously. No new parenchymal enhancement is identified. There is again absence of the right internal carotid artery flow void. Ventricular size is proportionate to the sulcal spaces, lateral ventricles very slightly larger although may be due to atrophy. There is no midline shift or extra-axial fluid collection. Mild T2 and FLAIR hyperintense signal abnormality of the nely is greater in interval. There is mild mucosal thickening of the ethmoid air cells and sphenoid sinus. There has been lens surgery on the right in interval. IMPRESSION 1. There is again a large extra-axial enhancing mass compatible with meningioma of the floor of the anterior cranial fossa, extends to the suprasellar cistern and contacts pituitary infundibulum as well as displaces the optic nerves inferiorly. Mass is very slightly larger on the order of 0.2 cm in AP and transverse planes. There has been development since the previous exam of gliosis or edema of the right frontal lobe adjacent to the mass. 2. 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 3. There is again focus of encephalomalacia with cortical involving the right frontal lobe. Mild T2 and FLAIR hyperintense signal abnormality of the nely is greater, probably due to chronic microvascular ischemic disease. Electronically signed by: Ramsey Allison MD (Jun 17, 2016 15:49:28)
[2016-06-17] MEDS ORDERED: KETOROLAC TROMETHAMINE 30 MG/ML INJ. IV ONE (16:00)
[2016-06-17] MEDS: ZOLPIDEM 5 MG TABLET. PO PRN (21:34)
[2016-06-18] VITALS (7 sets, daily range): BP systolic 127–172; BP diastolic 68–90
[2016-06-18 04:41] LABS: HEMATOCRIT 32.4 % (36.0-47.0); HEMOGLOBIN 9.9 g/dL (12.0-15.5); RED BLOOD COUNT 3.82 x10^6/uL (3.50-5.40); RED CELL DISTRIBUTION WIDTH 18.9 % (11.5-14.5); WHITE BLOOD COUNT 11.6 x10^3/uL (4.0-11.0)
[2016-06-18 05:08] LABS: CALCIUM 9.5 mg/dL (8.5-10.1); CREATININE 0.8 mg/dL (0.6-1.0); GFR 84.6; POTASSIUM 4.4 mmol/L (3.5-5.1)
[2016-06-18] MEDS: IPRATRPIUM/ALBUTEROL 0.5/2.5MG 3 ML NEBU. NEB SCH ×4 (06:10→18:10)
[2016-06-18] MEDS: LEVOFLOXACIN 500 MG TABLET PO SCH (06:19)
--- NOTE | 2016-06-18 07:56 | RAD ---
Left lower extremity venous Doppler ultrasound History: Left lower extremity swelling, shortness of air. Pain. Comparison: None. Procedure: Color Doppler, spectral Doppler, and grayscale images are obtained with and without compression in the area of the common femoral vein, superficial femoral vein - femoral vein junction, main femoral vein (superficial femoral vein) and popliteal vein. Veins of the proximal calf are also imaged. Findings: There is normal duplex flow, color flow and compressibility of all visualized vein segments. No evidence of deep venous thrombosis is present. Impression: No evidence of left lower extremity deep venous thrombosis.
[2016-06-18] MEDS: methylPREDNISolone SOD SUCC PF 125 MG/2 ML VIAL. IV SCH (09:02)
[2016-06-18] MEDS: DULOXETINE HCL 30 MG CAPSULE.DR. PO SCH (09:03)
[2016-06-18] MEDS: GABAPENTIN 300 MG CAPSULE. PO SCH ×4 (09:03→21:17)
[2016-06-18] MEDS: CLONAZEPAM 0.5 MG TABLET PO SCH ×2 (09:03→21:18)
[2016-06-18] MEDS: FUROSEMIDE 40 MG TABLET. PO SCH (09:03)
[2016-06-18] MEDS: AMLODIPINE BESYLATE 10 MG TABLET. PO SCH (09:04)
[2016-06-18] MEDS: HYDROCODONE/APAP 7.5/325MG TABLET. PO PRN (09:11)
--- NOTE | 2016-06-18 10:10 | PDOC ---
PULMONARY PROGRESS NOTES Subjective c/o headache no SOA Vitals Vital Signs Date Time Temp Pulse Resp B/P Pulse Ox O2 Delivery O2 Flow Rate FiO2 06/18/16 09:04 78 145/68 06/18/16 08:00 Nasal Cannula 2.0 06/18/16 07:16 98.1 17 94 98.1 General: Alert, No acute distress Lungs: Clear Cardiovascular: S1 Abdomen: Soft Neuro Exam: Alert Extremities: Other (mild left lower ext edema) Skin: Warm Labs Laboratory Tests Test 06/16/16 15:55 06/16/16 16:00 06/16/16 16:28 06/18/16 04:23 White Blood Count 8.0x10^3/uL (4.0-11.0) 11.6x10^3/uL (4.0-11.0) Red Blood Count 4.20x10^6/uL (3.50-5.40) 3.82x10^6/uL (3.50-5.40) Hemoglobin 11.2g/dL (12.0-15.5) 9.9g/dL (12.0-15.5) Hematocrit 35.9% (36.0-47.0) 32.4% (36.0-47.0) Mean Corpuscular Volume 86fL (79-100) 85fL (79-100) Mean Corpuscular Hemoglobin 27pg (25-35) 26pg (25-35) Mean Corpuscular Hemoglobin Concent 31g/dL (31-37) 31g/dL (31-37) Red Cell Distribution Width 19.2% (11.5-14.5) 18.9% (11.5-14.5) Platelet Count 298x10^3/uL (140-400) 306x10^3/uL (140-400) Neutrophils (%) (Auto) 64% (31-73) Lymphocytes (%) (Auto) 26% (24-48) Monocytes (%) (Auto) 8% (0-9) Eosinophils (%) (Auto) 1% (0-3) Basophils (%) (Auto) 1% (0-3) Neutrophils # (Auto) 5.2x10^3uL (1.8-7.7) Lymphocytes # (Auto) 2.1x10^3/uL (1.0-4.8) Monocytes # (Auto) 0.6x10^3/uL (0.0-1.1) Eosinophils # (Auto) 0.1x10^3/uL (0.0-0.7) Basophils # (Auto) 0.1x10^3/uL (0.0-0.2) Sodium Level 148mmol/L (136-145) 140mmol/L (136-145) Potassium Level 3.7mmol/L (3.5-5.1) 4.4mmol/L (3.5-5.1) Chloride Level 107mmol/L (98-107) 101mmol/L (98-107) Carbon Dioxide Level 33mmol/L (21-32) 35mmol/L (21-32) Anion Gap 8 (6-14) 4 (6-14) Blood Urea Nitrogen 9mg/dL (7-20) 21mg/dL (7-20) Creatinine 0.7mg/dL (0.6-1.0) 0.8mg/dL (0.6-1.0) Estimated GFR (Cockcroft-Gault) 98.7 84.6 BUN/Creatinine Ratio 13 (6-20) Glucose Level 92mg/dL (70-99) 151mg/dL (70-99) Calcium Level 9.8mg/dL (8.5-10.1) 9.5mg/dL (8.5-10.1) Total Bilirubin 0.3mg/dL (0.2-1.0) Aspartate Amino Transf (AST/SGOT) 16U/L (15-37) Alanine Aminotransferase (ALT/SGPT) 13U/L (14-59) Alkaline Phosphatase 86U/L (46-116) Troponin I Quantitative < 0.017ng/mL (0.000-0.055) LU-Upz-O-Type Natriuretic Peptide 116pg/mL (0-449) Total Protein 8.5g/dL (6.4-8.2) Albumin 3.6g/dL (3.4-5.0) Albumin/Globulin Ratio 0.7 (1.0-1.7) O2 Saturation 94% (92-99) Arterial Blood pH 7.34 (7.35-7.45) Arterial Blood pCO2 at Patient Temp 57mmHg (35-46) Arterial Blood pO2 at Patient Temp 79mmHg (65-108) Arterial Blood HCO3 30mmol/L (21-28) Arterial Blood Base Excess 4mmol/L (-3-3) FiO2 32.0 Influenza Type A Antigen Negative (NEGATIVE) Influenza Type B Antigen Negative (NEGATIVE) Erythrocyte Sedimentation Rate 87 (0-25) Laboratory Tests Test 06/18/16 04:23 White Blood Count 11.6x10^3/uL (4.0-11.0) Red Blood Count 3.82x10^6/uL (3.50-5.40) Hemoglobin 9.9g/dL (12.0-15.5) Hematocrit 32.4% (36.0-47.0) Mean Corpuscular Volume 85fL (79-100) Mean Corpuscular Hemoglobin 26pg (25-35) Mean Corpuscular Hemoglobin Concent 31g/dL (31-37) Red Cell Distribution Width 18.9% (11.5-14.5) Platelet Count 306x10^3/uL (140-400) Erythrocyte Sedimentation Rate 87 (0-25) Sodium Level 140mmol/L (136-145) Potassium Level 4.4mmol/L (3.5-5.1) Chloride Level 101mmol/L (98-107) Carbon Dioxide Level 35mmol/L (21-32) Anion Gap 4 (6-14) Blood Urea Nitrogen 21mg/dL (7-20) Creatinine 0.8mg/dL (0.6-1.0) Estimated GFR (Cockcroft-Gault) 84.6 Glucose Level 151mg/dL (70-99) Calcium Level 9.5mg/dL (8.5-10.1) Medications Active Scripts Medications Dose Route/Sig Days Date Category Tylenol (Acetaminophen) 325 Mg Tablet 2 Tab PO PRN Q4HRS 06/16/16 Reported Hydrocodone-Apap 7.5-325 (Hydrocodone Bit/Acetaminophen) 1 Each Tablet 1 Tab PO Q8HRS PRN 06/16/16 Reported Tizanidine Hcl 4 Mg Tablet 06/16/16 Reported Zolpidem Tartrate 5 Mg Tablet 06/16/16 Reported Furosemide 40 Mg Tablet 06/16/16 Reported Benazepril Hcl 40 Mg Tablet 06/16/16 Reported Amlodipine Besylate 10 Mg Tablet 06/16/[address] CHEST 1. No CT evidence of central pulmonary emboli. 2. Moderate coronary artery calcifications. 3. Emphysema. 4. Stable 1 cm right middle lobe pulmonary nodule. 5. New mild scattered tree-in-bud and nodular pulmonary opacities. The findings suggest infection and/or small airway disease. A neoplastic etiology is less likely. CT follow-up is suggested. Impression . 1. Acute on chronic hypercapnic respiratory failure secondary to chronic obstructive pulmonary disease exacerbation and mild patchy pneumonitis. 2. History of left lower extremity DVT, treated 5 years ago with Coumadin. Now comes in with some swelling in the left lower extremity and some chest pain. CT angiogram with no definite pulmonary embolism. no recurrent DVT 3. Mild patchy pneumonitis/ stable right lung nodule. 4. History of polymyalgia rheumatica, on chronic steroids. 5. Abnormal ct chest with Stable 1 cm right middle lobe pulmonary nodule. New mild scattered tree-in-bud and nodular pulmonary opacities. The findings suggest infection and/or small airway disease. A neoplastic etiology is less likely. Plan . 1. Continue with present nebulizer treatment. 2. Continue with oxygen. 3. follow up ABGs.as needed 4. Empiric antibiotics. 5. IV Solu-Medrol. 6. Venous Dopplers of left lower extremity.negative 7. Follow up ct chest in 4-6 weeks YOLA PARMAR MD Jun 18, 2016 10:10
--- NOTE | 2016-06-18 11:36 | PDOC ---
PROGRESS NOTES Assessment Problems Medical Problems: (1) COPD with acute exacerbation Status: Acute Temporal arteritis, ESR 87 Fibromyalgia Meningioma Plan She was on Solu-Medrol for her COPD, I will continue as oral prednisone Left temporal artery biopsy. Continued radiologic observation of the meningioma which I do not think is the cause of the headaches I discussed all risks, benefits, alternatives, side effects with the patient and her daughter. I increased the zolpidem dose Subjective Complains of insomnia and left temporal pain Objective Vital Signs Date Time Temp Pulse Resp B/P Pulse Ox O2 Delivery O2 Flow Rate FiO2 06/18/16 10:52 98.3 74 17 156/79 93 Nasal Cannula 2.0 98.3 Intake and Output 06/18/16 07:00 Intake Total 440 ml Output Total 600 ml Balance -160 ml Intake Oral 440 ml Output Urine Total 600 ml # Voids 2 PHYSICAL EXAM She is tender over the left temporal artery Alert. Oriented to time, place and person. PERRL. EOMI. CN: no focal findings. Fundi benign Muscle tone: normal. Muscle strength: 5/5 DTR: 2+ Plantar reflex: Flexor Gait: not examined in bed. Sensory exam: no abnormal findings. No cerebellar signs elicited. Review of Relevant I have reviewed the following items violeta (where applicable) has been applied. Labs Laboratory Tests Test 06/16/16 15:55 06/16/16 16:00 06/16/16 16:28 06/18/16 04:23 White Blood Count 8.0x10^3/uL (4.0-11.0) 11.6x10^3/uL (4.0-11.0) Red Blood Count 4.20x10^6/uL (3.50-5.40) 3.82x10^6/uL (3.50-5.40) Hemoglobin 11.2g/dL (12.0-15.5) 9.9g/dL (12.0-15.5) Hematocrit 35.9% (36.0-47.0) 32.4% (36.0-47.0) Mean Corpuscular Volume 86fL (79-100) 85fL (79-100) Mean Corpuscular Hemoglobin 27pg (25-35) 26pg (25-35) Mean Corpuscular Hemoglobin Concent 31g/dL (31-37) 31g/dL (31-37) Red Cell Distribution Width 19.2% (11.5-14.5) 18.9% (11.5-14.5) Platelet Count 298x10^3/uL (140-400) 306x10^3/uL (140-400) Neutrophils (%) (Auto) 64% (31-73) Lymphocytes (%) (Auto) 26% (24-48) Monocytes (%) (Auto) 8% (0-9) Eosinophils (%) (Auto) 1% (0-3) Basophils (%) (Auto) 1% (0-3) Neutrophils # (Auto) 5.2x10^3uL (1.8-7.7) Lymphocytes # (Auto) 2.1x10^3/uL (1.0-4.8) Monocytes # (Auto) 0.6x10^3/uL (0.0-1.1) Eosinophils # (Auto) 0.1x10^3/uL (0.0-0.7) Basophils # (Auto) 0.1x10^3/uL (0.0-0.2) Sodium Level 148mmol/L (136-145) 140mmol/L (136-145) Potassium Level 3.7mmol/L (3.5-5.1) 4.4mmol/L (3.5-5.1) Chloride Level 107mmol/L (98-107) 101mmol/L (98-107) Carbon Dioxide Level 33mmol/L (21-32) 35mmol/L (21-32) Anion Gap 8 (6-14) 4 (6-14) Blood Urea Nitrogen 9mg/dL (7-20) 21mg/dL (7-20) Creatinine 0.7mg/dL (0.6-1.0) 0.8mg/dL (0.6-1.0) Estimated GFR (Cockcroft-Gault) 98.7 84.6 BUN/Creatinine Ratio 13 (6-20) Glucose Level 92mg/dL (70-99) 151mg/dL (70-99) Calcium Level 9.8mg/dL (8.5-10.1) 9.5mg/dL (8.5-10.1) Total Bilirubin 0.3mg/dL (0.2-1.0) Aspartate Amino Transf (AST/SGOT) 16U/L (15-37) Alanine Aminotransferase (ALT/SGPT) 13U/L (14-59) Alkaline Phosphatase 86U/L (46-116) Troponin I Quantitative < 0.017ng/mL (0.000-0.055) VQ-Ntk-V-Type Natriuretic Peptide 116pg/mL (0-449) Total Protein 8.5g/dL (6.4-8.2) Albumin 3.6g/dL (3.4-5.0) Albumin/Globulin Ratio 0.7 (1.0-1.7) O2 Saturation 94% (92-99) Arterial Blood pH 7.34 (7.35-7.45) Arterial Blood pCO2 at Patient Temp 57mmHg (35-46) Arterial Blood pO2 at Patient Temp 79mmHg (65-108) Arterial Blood HCO3 30mmol/L (21-28) Arterial Blood Base Excess 4mmol/L (-3-3) FiO2 32.0 Influenza Type A Antigen Negative (NEGATIVE) Influenza Type B Antigen Negative (NEGATIVE) Erythrocyte Sedimentation Rate 87 (0-25) Laboratory Tests Test 06/18/16 04:23 White Blood Count 11.6x10^3/uL (4.0-11.0) Red Blood Count 3.82x10^6/uL (3.50-5.40) Hemoglobin 9.9g/dL (12.0-15.5) Hematocrit 32.4% (36.0-47.0) Mean Corpuscular Volume 85fL (79-100) Mean Corpuscular Hemoglobin 26pg (25-35) Mean Corpuscular Hemoglobin Concent 31g/dL (31-37) Red Cell Distribution Width 18.9% (11.5-14.5) Platelet Count 306x10^3/uL (140-400) Erythrocyte Sedimentation Rate 87 (0-25) Sodium Level 140mmol/L (136-145) Potassium Level 4.4mmol/L (3.5-5.1) Chloride Level 101mmol/L (98-107) Carbon Dioxide Level 35mmol/L (21-32) Anion Gap 4 (6-14) Blood Urea Nitrogen 21mg/dL (7-20) Creatinine 0.8mg/dL (0.6-1.0) Estimated GFR (Cockcroft-Gault) 84.6 Glucose Level 151mg/dL (70-99) Calcium Level 9.5mg/dL (8.5-10.1) Medications Current Medications Albuterol/ Ipratropium (Duoneb) 3 ml 1X ONCE NEB Last administered on 16:33; Start 06/16/16 at 16:45; Stop 06/16/16 at 16:46; Status DC Methylprednisolone Sodium Succinate (Solu-Medrol 125mg Vial) 80 mg 1X ONCE IV Last administered on 06/16/16 17:25; Start 06/16/16 at 16:45; Stop 06/16/16 at 16: 46; Status DC Albuterol Sulfate (Ventolin Neb Soln) 10 mg 1X ONCE CONT NEB Last administered on 06/16/16 16:33; Start 06/16/16 at 17:00; Stop 06/16/16 at 17:01; Status DC Fentanyl Citrate (Fentanyl 2ml Vial) 50 mcg 1X ONCE IV Last administered on 17:25; Start 06/16/16 at 17:00; Stop 06/16/16 at 17:01; Status DC Furosemide (Lasix) 40 mg 1X ONCE IVP Last administered on 06/16/16 19:13; Start 06/16/16 at 17:45; Stop 06/16/16 at 17:46; Status DC Albuterol/ Ipratropium (Duoneb) 3 ml RTQID NEB Last administered on 06/17/16 11 :12; Start 06/16/16 at 20:00; Stop 06/17/16 at 12:44; Status DC Methylprednisolone Sodium Succinate (Solu-Medrol 125mg Vial) 125 mg Q12HR IV Last administered on 06/18/16 09:02; Start 06/16/16 at 21:00; Stop 06/18/16 at 10: 11; Status DC Albuterol/ Ipratropium (Duoneb) 3 ml RTQID NEB Last administered on 06/18/16 06 :10; Start 06/17/16 at 08:00 Acetaminophen (Tylenol) 650 mg PRN Q4HRS PRN PO MILD PAIN; Start 06/16/16 at 20: 30 Amlodipine Besylate (Norvasc) 10 mg DAILY08 PO Last administered on 06/18/16 09 :04; Start 06/17/16 at 08:00 Furosemide (Lasix) 40 mg DAILY08 PO Last administered on 06/18/16 09:03; Start 06/17/16 at 08:00 Acetaminophen/ Hydrocodone Bitart (Lortab 7.5/325) 1 tab PRN Q8HRS PRN PO MODERATE - SEVERE PAIN Last administered on 06/18/16 09:11; Start 06/16/16 at 20: 30 Tizanidine HCl (Zanaflex) 4 mg PRN Q8HRS PRN PO MUSCLE SPASMS Last administered on 06/16/16 21:42; Start 06/16/16 at 20:30 Zolpidem Tartrate (Ambien) 5 mg QHS PRN PO SLEEP Last administered on 06/17/16 21:34; Start 06/16/16 at 21:00 Clonazepam (Klonopin) 0.5 mg BID PO Last administered on 06/18/16 09:03; Start 06/17/16 at 10:00 Gabapentin (Neurontin) 300 mg TID PO Last administered on 06/18/16 09:03; Start 06/17/16 at 10:00 Duloxetine HCl (Cymbalta) 60 mg DAILY PO Last administered on 06/18/16 09:03; Start 06/17/16 at 10:00 Iohexol (Omnipaque 300 Mg/ml) 75 ml 1X ONCE IV Last administered on 06/17/16 10:14; Start 06/17/16 at 10:00; Stop 06/17/16 at 10:01; Status DC Info (Do NOT chart on this entry -- for MONITORING) 1 each PRN DAILY PRN MC SEE COMMENTS; Start 06/17/16 at 10:00; Stop 06/19/16 at 09:59 Levofloxacin (Levaquin) 500 mg DAILY06 PO Last administered on 06/18/16 06:19; Start 06/17/16 at 13:00 Diazepam (Valium) 10 mg 1X ONCE IV Last administered on 06/17/16 14:10; Start 06/17/16 at 14:15; Stop 06/17/16 at 14:16; Status DC Gadobutrol (Gadavist) 7.5 mmol 1X ONCE IV Last administered on 06/17/16 15:09 ; Start 06/17/16 at 14:45; Stop 06/17/16 at 14:46; Status DC Ketorolac Tromethamine (Toradol) 30 mg 1X ONCE IV Last administered on 15:51; Start 06/17/16 at 16:00; Stop 06/17/16 at 16:01; Status DC Prednisone (Prednisone) 60 mg DAILY PO ; Start 06/19/16 at 09:00 Active Scripts Active Reported Tylenol (Acetaminophen) 325 Mg Tablet 2 Tab PO PRN Q4HRS Hydrocodone-Apap 7.5-325 (Hydrocodone Bit/Acetaminophen) 1 Each Tablet 1 Tab PO Q8HRS PRN Tizanidine Hcl 4 Mg Tablet Zolpidem Tartrate 5 Mg Tablet Furosemide 40 Mg Tablet Benazepril Hcl 40 Mg Tablet Amlodipine Besylate 10 Mg Tablet Vitals/I & O Vital Sign - Last 24 Hours 06/17/16 06/17/16 06/17/16 06/17/16 16:40 19:00 20:00 20:53 Temp 98.2 97.5 98.2 97.5 Pulse 89 102 Resp 18 B/P 159/84 145/82 Pulse Ox 94 95 98 O2 Delivery Nasal Cannula Nasal Cannula Nasal Cannula O2 Flow Rate 3.0 3.0 2.0 2.0 06/17/16 06/17/16 06/17/16 06/18/16 21:35 22:54 23:00 03:00 Temp 96.0 96.0 96.0 96.0 Pulse 94 94 Resp 20 B/P 130/85 130/85 Pulse Ox 99 99 O2 Delivery Nasal Cannula Nasal Cannula Room Air Nasal Cannula O2 Flow Rate 2.0 2.0 2.0 06/18/16 06/18/16 06/18/16 06/18/16 04:02 06:09 07:16 08:00 Temp 96.2 98.1 96.2 98.1 Pulse 78 78 Resp 18 17 B/P 127/79 145/68 Pulse Ox 98 96 94 O2 Delivery Nasal Cannula Nasal Cannula Nasal Cannula O2 Flow Rate 2.0 2.0 2.0 06/18/16 06/18/16 09:04 10:52 Temp 98.3 98.3 Pulse 78 74 Resp 17 B/P 145/68 156/79 Pulse Ox 93 O2 Delivery Nasal Cannula O2 Flow Rate 2.0 Intake and Output 06/17/16 06/17/16 06/18/16 15:00 23:00 07:00 Intake Total 440 ml 0 ml Output Total 600 ml Balance -160 ml 0 ml Images There is enhancing extra-axial mass of the floor of the anterior cranial fossa with bilateral parafalcine extent, extending along the planum sphenoidale and cribriform plate, also extent to the suprasellar cistern and contacting the superior aspect of the pituitary gland. There is also contact and mild displacement posteriorly of the infundibulum. Pre chiasmatic optic nerves are apparently displaced inferiorly although poorly distinguished on this exam. Mass measures up to 3.9 cm AP by 2.6 cm cc by 3.4 cm transverse. Mass measures slightly larger on the order of 0.2 cm in the transverse and AP planes. Masses seen along the anterior surfaces of the anterior cerebral arteries. There is new T2 and FLAIR hyperintense signal abnormality of the adjacent right frontal lobe. There is small focus of encephalomalacia with cortical involvement of the right frontal lobe as seen previously. No new parenchymal enhancement is identified. There is again absence of the right internal carotid artery flow void. Ventricular size is proportionate to the sulcal spaces, lateral ventricles very slightly larger although may be due to atrophy. There is no midline shift or extra-axial fluid collection. Mild T2 and FLAIR hyperintense signal abnormality of the nely is greater in interval. There is mild mucosal thickening of the ethmoid air cells and sphenoid sinus. There has been lens surgery on the right in interval. IMPRESSION 1. There is again a large extra-axial enhancing mass compatible with meningioma of the floor of the anterior cranial fossa, extends to the suprasellar cistern and contacts pituitary infundibulum as well as displaces the optic nerves inferiorly. Mass is very slightly larger on the order of 0.2 cm in AP and transverse planes. There has been development since the previous exam of gliosis or edema of the right frontal lobe adjacent to the mass. 2. 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 3. There is again focus of encephalomalacia with cortical involving the right frontal lobe. Mild T2 and FLAIR hyperintense signal abnormality of the nely is greater, probably due to chronic microvascular ischemic disease. APPELBAUM,CHYNA S MD Jun 18, 2016 11:36
--- NOTE | 2016-06-18 12:06 | PDOC ---
SUBJECTIVE Subjective She still complains of headache, she is on IV steroids for COPD exacerbation which is also helping her temporal arteritis/polymyalgia rheumatica, she does have neuropathic pain in the lower extremities and still complains of insomnia OBJECTIVE Vital Signs Vital Signs Date Time Temp Pulse Resp B/P Pulse Ox O2 Delivery O2 Flow Rate FiO2 06/18/16 10:52 98.3 74 17 156/79 93 Nasal Cannula 2.0 98.3 06/18/16 09:04 78 145/68 06/18/16 08:00 Nasal Cannula 2.0 06/18/16 07:16 98.1 78 17 145/68 94 Nasal Cannula 2.0 98.1 06/18/16 06:09 96 Nasal Cannula 2.0 06/18/16 04:02 96.2 78 18 127/79 98 96.2 06/18/16 03:00 96.0 94 130/85 99 Nasal Cannula 2.0 96.0 06/17/16 23:00 96.0 94 20 130/85 99 Room Air 96.0 06/17/16 22:54 Nasal Cannula 2.0 06/17/16 21:35 Nasal Cannula 2.0 06/17/16 20:53 98 Nasal Cannula 2.0 06/17/16 20:00 Nasal Cannula 2.0 06/17/16 19:00 97.5 102 18 145/82 95 3.0 97.5 06/17/16 16:40 98.2 89 19 159/84 94 Nasal Cannula 3.0 98.2 I & O Intake and Output 06/18/16 07:00 Intake Total 440 ml Output Total 600 ml Balance -160 ml Intake Oral 440 ml Output Urine Total 600 ml # Voids 2 PHYSICAL EXAM Physical Exam Lungs was better air movement Otherwise her exam without change ASSESSMENT/PLAN Assessment/Plan 1. Shortness of breath with hypoxia, due to chronic obstructive pulmonary disease exacerbation, no evidence of pulmonary embolus on CT chest, also no evidence of DVT on venous Doppler of lower extremities 2. Previous history of pulmonary nodules, followed by Pulmonary and has not had any changes over the last several years. 3. Headache multifactorial, could be related to her polymyalgia/temporal arteritis she is normally on prednisone 10 mg at home, currently she is on IV Solu-Medrol due to COPD exacerbation, large meningioma could be also contributing to her headache 4. History of polymyalgia rheumatica, on chronic steroids. She is currently on IV steroids for chronic obstructive pulmonary disease. 5. Chronic obstructive pulmonary disease exacerbation and bronchitis. 6. Peripheral neuropathy. 7. Hypertension, hypertensive cardiovascular disease. 8. Osteoarthritis. 9. Hypothyroidism. 10. Large intracranial meningioma was edema in the right frontal lobe as per MRI Continue current plan Problems: COMMENT Lab Laboratory Tests Test 06/18/16 04:23 White Blood Count 11.6x10^3/uL (4.0-11.0) Red Blood Count 3.82x10^6/uL (3.50-5.40) Hemoglobin 9.9g/dL (12.0-15.5) Hematocrit 32.4% (36.0-47.0) Mean Corpuscular Volume 85fL (79-100) Mean Corpuscular Hemoglobin 26pg (25-35) Mean Corpuscular Hemoglobin Concent 31g/dL (31-37) Red Cell Distribution Width 18.9% (11.5-14.5) Platelet Count 306x10^3/uL (140-400) Erythrocyte Sedimentation Rate 87 (0-25) Sodium Level 140mmol/L (136-145) Potassium Level 4.4mmol/L (3.5-5.1) Chloride Level 101mmol/L (98-107) Carbon Dioxide Level 35mmol/L (21-32) Anion Gap 4 (6-14) Blood Urea Nitrogen 21mg/dL (7-20) Creatinine 0.8mg/dL (0.6-1.0) Estimated GFR (Cockcroft-Gault) 84.6 Glucose Level 151mg/dL (70-99) Calcium Level 9.5mg/dL (8.5-10.1) MATIAS VALERIO MD Jun 18, 2016 12:06
[2016-06-18] MEDS: FAMOTIDINE 20 MG TABLET. PO SCH (13:04)
[2016-06-18] MEDS: CALCIUM CARBONATE 500 MG TABLET PO SCH ×2 (13:04→17:49)
--- NOTE | 2016-06-18 13:12 | PDOC2 ---
CONSULT Date of Consult Date of Consult DATE: 06/18/16 TIME: 12:56 Reason for Consult Reason for Consult: left temporal artery biopsy Referring Physician Referring Physician: Dr Morales Identification/Chief Complaint Chief Complaint headaches Source Source: Chart review, Patient History of Present Illness Reason for Visit: Ms Lawrence is a 75 yo lady admitted for an exacerbation of her COPD. She was seen in consultation by Dr Morales for headaches. found to have an elevated ESR. We are asked to do temporal artery biopsy Past Medical History Cardiovascular: HTN Pulmonary: COPD CENTRAL NERVOUS SYSTEM: Periperal neuropathy, Other (meningioma, treated with radiation treatments) Musculoskeletal: Osteoarthritis Rheumatologic: Fibromyalgia Endocrine: Hypothyroidism Past Surgical History Past Surgical History: No pertinent history Family History Family History: Coronary Artery Disease, Hypertension Social History <1 pack per day ALCOHOL: occassional Lives: with Family Current Problem List Problem List Problems Medical Problems: (1) COPD with acute exacerbation Status: Acute Current Medications Current Medications Current Medications Albuterol/ Ipratropium (Duoneb) 3 ml 1X ONCE NEB Last administered on 16:33; Start 06/16/16 at 16:45; Stop 06/16/16 at 16:46; Status DC Methylprednisolone Sodium Succinate (Solu-Medrol 125mg Vial) 80 mg 1X ONCE IV Last administered on 06/16/16 17:25; Start 06/16/16 at 16:45; Stop 06/16/16 at 16: 46; Status DC Albuterol Sulfate (Ventolin Neb Soln) 10 mg 1X ONCE CONT NEB Last administered on 06/16/16 16:33; Start 06/16/16 at 17:00; Stop 06/16/16 at 17:01; Status DC Fentanyl Citrate (Fentanyl 2ml Vial) 50 mcg 1X ONCE IV Last administered on 17:25; Start 06/16/16 at 17:00; Stop 06/16/16 at 17:01; Status DC Furosemide (Lasix) 40 mg 1X ONCE IVP Last administered on 06/16/16 19:13; Start 06/16/16 at 17:45; Stop 06/16/16 at 17:46; Status DC Albuterol/ Ipratropium (Duoneb) 3 ml RTQID NEB Last administered on 06/17/16 11 :12; Start 06/16/16 at 20:00; Stop 06/17/16 at 12:44; Status DC Methylprednisolone Sodium Succinate (Solu-Medrol 125mg Vial) 125 mg Q12HR IV Last administered on 06/18/16 09:02; Start 06/16/16 at 21:00; Stop 06/18/16 at 10: 11; Status DC Albuterol/ Ipratropium (Duoneb) 3 ml RTQID NEB Last administered on 06/18/16 12 :46; Start 06/17/16 at 08:00 Acetaminophen (Tylenol) 650 mg PRN Q4HRS PRN PO MILD PAIN; Start 06/16/16 at 20: 30 Amlodipine Besylate (Norvasc) 10 mg DAILY08 PO Last administered on 06/18/16 09 :04; Start 06/17/16 at 08:00 Furosemide (Lasix) 40 mg DAILY08 PO Last administered on 06/18/16 09:03; Start 06/17/16 at 08:00 Acetaminophen/ Hydrocodone Bitart (Lortab 7.5/325) 1 tab PRN Q8HRS PRN PO MODERATE - SEVERE PAIN Last administered on 06/18/16 09:11; Start 06/16/16 at 20: 30 Tizanidine HCl (Zanaflex) 4 mg PRN Q8HRS PRN PO MUSCLE SPASMS Last administered on 06/16/16 21:42; Start 06/16/16 at 20:30 Zolpidem Tartrate (Ambien) 5 mg QHS PRN PO SLEEP Last administered on 06/17/16 21:34; Start 06/16/16 at 21:00; Stop 06/18/16 at 11:34; Status DC Clonazepam (Klonopin) 0.5 mg BID PO Last administered on 06/18/16 09:03; Start 06/17/16 at 10:00 Gabapentin (Neurontin) 300 mg TID PO Last administered on 06/18/16 09:03; Start 06/17/16 at 10:00 Duloxetine HCl (Cymbalta) 60 mg DAILY PO Last administered on 06/18/16 09:03; Start 06/17/16 at 10:00 Iohexol (Omnipaque 300 Mg/ml) 75 ml 1X ONCE IV Last administered on 06/17/16 10:14; Start 06/17/16 at 10:00; Stop 06/17/16 at 10:01; Status DC Info (Do NOT chart on this entry -- for MONITORING) 1 each PRN DAILY PRN MC SEE COMMENTS; Start 06/17/16 at 10:00; Stop 06/19/16 at 09:59 Levofloxacin (Levaquin) 500 mg DAILY06 PO Last administered on 06/18/16 06:19; Start 06/17/16 at 13:00 Diazepam (Valium) 10 mg 1X ONCE IV Last administered on 06/17/16 14:10; Start 06/17/16 at 14:15; Stop 06/17/16 at 14:16; Status DC Gadobutrol (Gadavist) 7.5 mmol 1X ONCE IV Last administered on 06/17/16 15:09 ; Start 06/17/16 at 14:45; Stop 06/17/16 at 14:46; Status DC Ketorolac Tromethamine (Toradol) 30 mg 1X ONCE IV Last administered on 15:51; Start 06/17/16 at 16:00; Stop 06/17/16 at 16:01; Status DC Prednisone (Prednisone) 60 mg DAILY PO ; Start 06/19/16 at 09:00 Zolpidem Tartrate (Ambien) 10 mg PRN QHS PRN PO SLEEP; Start 06/18/16 at 11:45 Famotidine (Pepcid) 20 mg DAILY PO ; Start 06/18/16 at 12:00 Calcium Carbonate/ Glycine (Oscal) 500 mg TIDAFTMEAL PO ; Start 06/18/16 at 13:00 Vitamin D (Vitamin D3) 50,000 unit QMTH PO ; Start 06/21/16 at 16:00 Active Scripts Active Reported Tylenol (Acetaminophen) 325 Mg Tablet 2 Tab PO PRN Q4HRS Hydrocodone-Apap 7.5-325 (Hydrocodone Bit/Acetaminophen) 1 Each Tablet 1 Tab PO Q8HRS PRN Tizanidine Hcl 4 Mg Tablet Zolpidem Tartrate 5 Mg Tablet Furosemide 40 Mg Tablet Benazepril Hcl 40 Mg Tablet Amlodipine Besylate 10 Mg Tablet Allergies Allergies: Coded Allergies: Penicillins (Verified Allergy, Intermediate, Rash, 06/16/16) ibuprofen (Verified Allergy, Intermediate, rash, 05/24/14) ROS Respiratory: YES: Shortness of breath Neurological: Yes Headaches Physical Exam General: Alert, No acute distress HEENT: Atraumatic Lungs: Normal air movement Heart: Regular rate Abdomen: Soft Extremities: No clubbing Neuro: Normal speech Vitals VITALS Vital Signs Date Time Temp Pulse Resp B/P Pulse Ox O2 Delivery O2 Flow Rate FiO2 06/18/16 12:48 94 Nasal Cannula 2.0 06/18/16 10:52 98.3 74 17 156/79 98.3 Labs Labs Laboratory Tests Test 06/16/16 15:55 06/16/16 16:00 06/16/16 16:28 06/18/16 04:23 White Blood Count 8.0x10^3/uL (4.0-11.0) 11.6x10^3/uL (4.0-11.0) Red Blood Count 4.20x10^6/uL (3.50-5.40) 3.82x10^6/uL (3.50-5.40) Hemoglobin 11.2g/dL (12.0-15.5) 9.9g/dL (12.0-15.5) Hematocrit 35.9% (36.0-47.0) 32.4% (36.0-47.0) Mean Corpuscular Volume 86fL (79-100) 85fL (79-100) Mean Corpuscular Hemoglobin 27pg (25-35) 26pg (25-35) Mean Corpuscular Hemoglobin Concent 31g/dL (31-37) 31g/dL (31-37) Red Cell Distribution Width 19.2% (11.5-14.5) 18.9% (11.5-14.5) Platelet Count 298x10^3/uL (140-400) 306x10^3/uL (140-400) Neutrophils (%) (Auto) 64% (31-73) Lymphocytes (%) (Auto) 26% (24-48) Monocytes (%) (Auto) 8% (0-9) Eosinophils (%) (Auto) 1% (0-3) Basophils (%) (Auto) 1% (0-3) Neutrophils # (Auto) 5.2x10^3uL (1.8-7.7) Lymphocytes # (Auto) 2.1x10^3/uL (1.0-4.8) Monocytes # (Auto) 0.6x10^3/uL (0.0-1.1) Eosinophils # (Auto) 0.1x10^3/uL (0.0-0.7) Basophils # (Auto) 0.1x10^3/uL (0.0-0.2) Sodium Level 148mmol/L (136-145) 140mmol/L (136-145) Potassium Level 3.7mmol/L (3.5-5.1) 4.4mmol/L (3.5-5.1) Chloride Level 107mmol/L (98-107) 101mmol/L (98-107) Carbon Dioxide Level 33mmol/L (21-32) 35mmol/L (21-32) Anion Gap 8 (6-14) 4 (6-14) Blood Urea Nitrogen 9mg/dL (7-20) 21mg/dL (7-20) Creatinine 0.7mg/dL (0.6-1.0) 0.8mg/dL (0.6-1.0) Estimated GFR (Cockcroft-Gault) 98.7 84.6 BUN/Creatinine Ratio 13 (6-20) Glucose Level 92mg/dL (70-99) 151mg/dL (70-99) Calcium Level 9.8mg/dL (8.5-10.1) 9.5mg/dL (8.5-10.1) Total Bilirubin 0.3mg/dL (0.2-1.0) Aspartate Amino Transf (AST/SGOT) 16U/L (15-37) Alanine Aminotransferase (ALT/SGPT) 13U/L (14-59) Alkaline Phosphatase 86U/L (46-116) Troponin I Quantitative < 0.017ng/mL (0.000-0.055) OI-Hns-S-Type Natriuretic Peptide 116pg/mL (0-449) Total Protein 8.5g/dL (6.4-8.2) Albumin 3.6g/dL (3.4-5.0) Albumin/Globulin Ratio 0.7 (1.0-1.7) O2 Saturation 94% (92-99) Arterial Blood pH 7.34 (7.35-7.45) Arterial Blood pCO2 at Patient Temp 57mmHg (35-46) Arterial Blood pO2 at Patient Temp 79mmHg (65-108) Arterial Blood HCO3 30mmol/L (21-28) Arterial Blood Base Excess 4mmol/L (-3-3) FiO2 32.0 Influenza Type A Antigen Negative (NEGATIVE) Influenza Type B Antigen Negative (NEGATIVE) Erythrocyte Sedimentation Rate 87 (0-25) Laboratory Tests Test 06/18/16 04:23 White Blood Count 11.6x10^3/uL (4.0-11.0) Red Blood Count 3.82x10^6/uL (3.50-5.40) Hemoglobin 9.9g/dL (12.0-15.5) Hematocrit 32.4% (36.0-47.0) Mean Corpuscular Volume 85fL (79-100) Mean Corpuscular Hemoglobin 26pg (25-35) Mean Corpuscular Hemoglobin Concent 31g/dL (31-37) Red Cell Distribution Width 18.9% (11.5-14.5) Platelet Count 306x10^3/uL (140-400) Erythrocyte Sedimentation Rate 87 (0-25) Sodium Level 140mmol/L (136-145) Potassium Level 4.4mmol/L (3.5-5.1) Chloride Level 101mmol/L (98-107) Carbon Dioxide Level 35mmol/L (21-32) Anion Gap 4 (6-14) Blood Urea Nitrogen 21mg/dL (7-20) Creatinine 0.8mg/dL (0.6-1.0) Estimated GFR (Cockcroft-Gault) 84.6 Glucose Level 151mg/dL (70-99) Calcium Level 9.5mg/dL (8.5-10.1) Images Images MRI reviewed Assessment/Plan Assessment/Plan Headaches with elevated ESR/for temporal artery biopsy Tuesday. Explained the procedure to Ms Lawrence, including that it is not a theraputic intervention but a diagnostic procedure. She understands and will proceed. Thanks for consult SHARON JEAN MD Jun 18, 2016 13:12
[2016-06-18] MEDS: tiZANidine 4 MG TABLET. PO PRN (21:17)
[2016-06-18] MEDS: ZOLPIDEM 5 MG TABLET. PO PRN (21:17)
[2016-06-18] MEDS: GUAIFENESIN ER 600 MG TABLET.ER PO SCH (21:17)
[2016-06-19 07:44] VITALS: BP 149/73
[2016-06-19] MEDS: IPRATRPIUM/ALBUTEROL 0.5/2.5MG 3 ML NEBU. NEB SCH ×4 (08:00→21:26)
[2016-06-19] MEDS: CLONAZEPAM 0.5 MG TABLET PO SCH ×2 (08:05→20:44)
[2016-06-19] MEDS: PREDNISONE 20 MG TABLET PO SCH (08:05)
[2016-06-19] MEDS: FUROSEMIDE 40 MG TABLET. PO SCH (08:05)
[2016-06-19] MEDS: FAMOTIDINE 20 MG TABLET. PO SCH (08:05)
[2016-06-19] MEDS: GUAIFENESIN ER 600 MG TABLET.ER PO SCH ×2 (08:05→20:43)
[2016-06-19] MEDS: GABAPENTIN 300 MG CAPSULE. PO SCH ×3 (08:05→20:44)
[2016-06-19] MEDS: LEVOFLOXACIN 500 MG TABLET PO SCH (08:05)
[2016-06-19] MEDS: DULOXETINE HCL 30 MG CAPSULE.DR. PO SCH (08:05)
[2016-06-19] MEDS: CALCIUM CARBONATE 500 MG TABLET PO SCH ×3 (08:06→17:19)
[2016-06-19] MEDS: AMLODIPINE BESYLATE 10 MG TABLET. PO SCH (08:06)
[2016-06-19] MEDS: HYDROCODONE/APAP 7.5/325MG TABLET. PO PRN ×2 (08:06→20:44)
[2016-06-19 08:13] VITALS: BP 149/73
--- NOTE | 2016-06-19 08:56 | PDOC ---
SUBJECTIVE Subjective feels better this AM, [place] some improved, still mild cough , SOB better OBJECTIVE Vital Signs Vital Signs Date Time Temp Pulse Resp B/P Pulse Ox O2 Delivery O2 Flow Rate FiO2 06/19/16 08:06 69 149/73 06/19/16 08:00 Nasal Cannula 2.0 06/19/16 07:44 98.5 69 21 149/73 95 Nasal Cannula 2.0 98.5 06/18/16 22:59 98.1 77 19 152/68 95 Nasal Cannula 2.0 98.1 06/18/16 21:08 Nasal Cannula 2.0 06/18/16 20:00 Nasal Cannula 2.0 06/18/16 19:00 98.7 77 21 172/90 93 Nasal Cannula 2.0 98.7 06/18/16 18:11 Nasal Cannula 2.0 06/18/16 15:16 98.4 81 17 142/73 93 Nasal Cannula 2.0 98.4 06/18/16 12:48 94 Nasal Cannula 2.0 06/18/16 10:52 98.3 74 17 156/79 93 Nasal Cannula 2.0 98.3 06/18/16 09:04 78 145/68 I & O Intake and Output 06/19/16 07:00 Intake Total 1850 ml Balance 1850 ml Intake Oral 1850 ml # Voids 8 PHYSICAL EXAM Physical Exam lungs with decrease BS, few wheezes heart RRR abd soft ext no edema ASSESSMENT/PLAN Assessment/Plan 1. Shortness of breath with hypoxia, due to chronic obstructive pulmonary disease exacerbation, no evidence of pulmonary embolus on CT chest, also no evidence of DVT on venous Doppler of lower extremities 2. Previous history of pulmonary nodules, followed by Pulmonary and has not had any changes over the last several years. 3. Headache multifactorial, could be related to her polymyalgia/temporal arteritis she is normally on prednisone 10 mg at home, currently on prednisone 60 mg , 4. History of polymyalgia rheumatica, on chronic steroids. She is currently on prednisone 60 mg daily 5. Chronic obstructive pulmonary disease exacerbation and bronchitis. 6. Peripheral neuropathy. 7. Hypertension, hypertensive cardiovascular disease. 8. Osteoarthritis. 9. Hypothyroidism. 10. Large intracranial meningioma with edema in the right frontal lobe as per MRI not sure having temporal artery Bx will change anything in management , she is already on steroid for PMR, had temporal Bx many years ago was neg but that is not conclusive any way, will evaluate need for O2 at home, increase activity if continue to improve may be home tomorrow if all agree with no need for TA Bx Problems: MATIAS VALERIO MD Jun 19, 2016 08:56
--- NOTE | 2016-06-19 10:02 | PDOC ---
SURGICAL PROGRESS NOTE Subjective Pt reports feeling much better with being on abx Vital Signs Vital Signs Date Time Temp Pulse Resp B/P Pulse Ox O2 Delivery O2 Flow Rate FiO2 06/19/16 08:06 69 149/73 06/19/16 08:00 Nasal Cannula 2.0 06/19/16 07:44 98.5 21 95 98.5 I&O Intake and Output 06/19/16 06:59 Intake Total 1850 ml Balance 1850 ml Intake Oral 1850 ml # Voids 8 General: Alert, Oriented X3, Cooperative, No acute distress Labs Laboratory Tests Test 06/18/16 04:23 White Blood Count 11.6x10^3/uL (4.0-11.0) Red Blood Count 3.82x10^6/uL (3.50-5.40) Hemoglobin 9.9g/dL (12.0-15.5) Hematocrit 32.4% (36.0-47.0) Mean Corpuscular Volume 85fL (79-100) Mean Corpuscular Hemoglobin 26pg (25-35) Mean Corpuscular Hemoglobin Concent 31g/dL (31-37) Red Cell Distribution Width 18.9% (11.5-14.5) Platelet Count 306x10^3/uL (140-400) Erythrocyte Sedimentation Rate 87 (0-25) Sodium Level 140mmol/L (136-145) Potassium Level 4.4mmol/L (3.5-5.1) Chloride Level 101mmol/L (98-107) Carbon Dioxide Level 35mmol/L (21-32) Anion Gap 4 (6-14) Blood Urea Nitrogen 21mg/dL (7-20) Creatinine 0.8mg/dL (0.6-1.0) Estimated GFR (Cockcroft-Gault) 84.6 Glucose Level 151mg/dL (70-99) Calcium Level 9.5mg/dL (8.5-10.1) Problem List Problems Medical Problems: (1) COPD with acute exacerbation Status: Acute Assessment/Plan [place] d/w Dr. Saleh, biopsy not felt beneficial, at this time will sign off, but please call for questions Problems: BARRETT GORMAN MD Jun 19, 2016 10:02
[2016-06-19 11:36] VITALS: BP 157/75
--- NOTE | 2016-06-19 11:47 | PDOC ---
PULMONARY PROGRESS NOTES Subjective c/o headache no SOA, has cough, nasal congestion Vitals Vital Signs Date Time Temp Pulse Resp B/P Pulse Ox O2 Delivery O2 Flow Rate FiO2 06/19/16 11:36 98.2 71 21 157/75 94 Nasal Cannula 2.0 98.2 ROS: No Nausea, No Chest Pain, No Abdominal Pain General: Alert, No acute distress Lungs: Wheezing Cardiovascular: S1, S2 Abdomen: Soft, Non-tender Neuro Exam: Alert, Oriented Extremities: Other (mild left lower ext edema) Skin: Warm Labs Laboratory Tests Test 06/18/16 04:23 White Blood Count 11.6x10^3/uL (4.0-11.0) Red Blood Count 3.82x10^6/uL (3.50-5.40) Hemoglobin 9.9g/dL (12.0-15.5) Hematocrit 32.4% (36.0-47.0) Mean Corpuscular Volume 85fL (79-100) Mean Corpuscular Hemoglobin 26pg (25-35) Mean Corpuscular Hemoglobin Concent 31g/dL (31-37) Red Cell Distribution Width 18.9% (11.5-14.5) Platelet Count 306x10^3/uL (140-400) Erythrocyte Sedimentation Rate 87 (0-25) Sodium Level 140mmol/L (136-145) Potassium Level 4.4mmol/L (3.5-5.1) Chloride Level 101mmol/L (98-107) Carbon Dioxide Level 35mmol/L (21-32) Anion Gap 4 (6-14) Blood Urea Nitrogen 21mg/dL (7-20) Creatinine 0.8mg/dL (0.6-1.0) Estimated GFR (Cockcroft-Gault) 84.6 Glucose Level 151mg/dL (70-99) Calcium Level 9.5mg/dL (8.5-10.1) Medications Active Scripts Medications Dose Route/Sig Days Date Category Tylenol (Acetaminophen) 325 Mg Tablet 2 Tab PO PRN Q4HRS 06/16/16 Reported Hydrocodone-Apap 7.5-325 (Hydrocodone Bit/Acetaminophen) 1 Each Tablet 1 Tab PO Q8HRS PRN 06/16/16 Reported Tizanidine Hcl 4 Mg Tablet 06/16/16 Reported Zolpidem Tartrate 5 Mg Tablet 4/5/17 Reported Furosemide 40 Mg Tablet 06/16/16 Reported Benazepril Hcl 40 Mg Tablet 06/16/16 Reported Amlodipine Besylate 10 Mg Tablet 06/16/[address] CHEST 1. No CT evidence of central pulmonary emboli. 2. Moderate coronary artery calcifications. 3. Emphysema. 4. Stable 1 cm right middle lobe pulmonary nodule. 5. New mild scattered tree-in-bud and nodular pulmonary opacities. The findings suggest infection and/or small airway disease. A neoplastic etiology is less likely. CT follow-up is suggested. Impression . 1. Acute on chronic hypercapnic respiratory failure secondary to chronic obstructive pulmonary disease exacerbation and mild patchy pneumonitis. 2. History of left lower extremity DVT, treated 5 years ago with Coumadin. Now comes in with some swelling in the left lower extremity and some chest pain. CT angiogram with no definite pulmonary embolism. no recurrent DVT 3. Mild patchy pneumonitis/ stable right lung nodule. 4. History of polymyalgia rheumatica, on chronic steroids. 5. Abnormal ct chest with Stable 1 cm right middle lobe pulmonary nodule. New mild scattered tree-in-bud and nodular pulmonary opacities. The findings suggest infection and/or small airway disease. A neoplastic etiology is less likely. 6. allergic rhinitis Plan . 1. Continue with present nebulizer treatment. 2. Continue with oxygen. 3. follow up ABGs.as needed 4. Empiric antibiotics. 5. IV Solu-Medrol to prednisone w taper 6. Venous Dopplers of left lower extremity.negative 7. Follow up ct chest in 4-6 weeks 8. add JENNIFER Gates MD Jun 19, 2016 11:47
--- NOTE | 2016-06-19 12:55 | PDOC ---
PROGRESS NOTES Assessment Problems Medical Problems: (1) COPD with acute exacerbation Status: Acute Temporal arteritis, ESR [address] Saleh the patient had a temporal artery biopsy, negative , several years ago, and also carries a diagnosis of polymyalgia rheumatica. She was already on prednisone 10 mg daily at a baseline. Patient did not tell me any of this. Fibromyalgia Meningioma Plan She was on Solu-Medrol for her COPD, Continue prednisone increased dose of 60 mg daily Calcium, vitamin D, and Pepcid while on the higher dose of steroids Cancel left temporal artery biopsy. Continued radiologic observation of the meningioma which I do not think is the cause of the headaches Followup with me in [address] Saleh Subjective pain is a little better Objective Vital Signs Date Time Temp Pulse Resp B/P Pulse Ox O2 Delivery O2 Flow Rate FiO2 06/19/16 11:58 94 Nasal Cannula 2.0 06/19/16 11:36 98.2 71 21 157/75 98.2 Intake and Output 06/19/16 07:00 Intake Total 1850 ml Balance 1850 ml Intake Oral 1850 ml # Voids 8 PHYSICAL EXAM She is tender over the left temporal artery Alert. Oriented to time, place and person. PERRL. EOMI. CN: no focal findings. Fundi benign Muscle tone: normal. Muscle strength: 5/5 DTR: 2+ Plantar reflex: Flexor Gait: not examined in bed. Sensory exam: no abnormal findings. No cerebellar signs elicited. Review of Relevant I have reviewed the following items violeta (where applicable) has been applied. Labs Laboratory Tests Test 06/18/16 04:23 White Blood Count 11.6x10^3/uL (4.0-11.0) Red Blood Count 3.82x10^6/uL (3.50-5.40) Hemoglobin 9.9g/dL (12.0-15.5) Hematocrit 32.4% (36.0-47.0) Mean Corpuscular Volume 85fL (79-100) Mean Corpuscular Hemoglobin 26pg (25-35) Mean Corpuscular Hemoglobin Concent 31g/dL (31-37) Red Cell Distribution Width 18.9% (11.5-14.5) Platelet Count 306x10^3/uL (140-400) Erythrocyte Sedimentation Rate 87 (0-25) Sodium Level 140mmol/L (136-145) Potassium Level 4.4mmol/L (3.5-5.1) Chloride Level 101mmol/L (98-107) Carbon Dioxide Level 35mmol/L (21-32) Anion Gap 4 (6-14) Blood Urea Nitrogen 21mg/dL (7-20) Creatinine 0.8mg/dL (0.6-1.0) Estimated GFR (Cockcroft-Gault) 84.6 Glucose Level 151mg/dL (70-99) Calcium Level 9.5mg/dL (8.5-10.1) Medications Current Medications Albuterol/ Ipratropium (Duoneb) 3 ml 1X ONCE NEB Last administered on 16:33; Start 06/16/16 at 16:45; Stop 06/16/16 at 16:46; Status DC Methylprednisolone Sodium Succinate (Solu-Medrol 125mg Vial) 80 mg 1X ONCE IV Last administered on 06/16/16 17:25; Start 06/16/16 at 16:45; Stop 06/16/16 at 16: 46; Status DC Albuterol Sulfate (Ventolin Neb Soln) 10 mg 1X ONCE CONT NEB Last administered on 06/16/16 16:33; Start 06/16/16 at 17:00; Stop 06/16/16 at 17:01; Status DC Fentanyl Citrate (Fentanyl 2ml Vial) 50 mcg 1X ONCE IV Last administered on 17:25; Start 06/16/16 at 17:00; Stop 06/16/16 at 17:01; Status DC Furosemide (Lasix) 40 mg 1X ONCE IVP Last administered on 06/16/16 19:13; Start 06/16/16 at 17:45; Stop 06/16/16 at 17:46; Status DC Albuterol/ Ipratropium (Duoneb) 3 ml RTQID NEB Last administered on 06/17/16 11 :12; Start 06/16/16 at 20:00; Stop 06/17/16 at 12:44; Status DC Methylprednisolone Sodium Succinate (Solu-Medrol 125mg Vial) 125 mg Q12HR IV Last administered on 06/18/16 09:02; Start 06/16/16 at 21:00; Stop 06/18/16 at 10: 11; Status DC Albuterol/ Ipratropium (Duoneb) 3 ml RTQID NEB Last administered on 06/19/16 11 :57; Start 06/17/16 at 08:00 Acetaminophen (Tylenol) 650 mg PRN Q4HRS PRN PO MILD PAIN Last administered on 06/19/16 12:13; Start 06/16/16 at 20:30 Amlodipine Besylate (Norvasc) 10 mg DAILY08 PO Last administered on 06/19/16 08 :06; Start 06/17/16 at 08:00 Furosemide (Lasix) 40 mg DAILY08 PO Last administered on 06/19/16 08:05; Start 06/17/16 at 08:00 Acetaminophen/ Hydrocodone Bitart (Lortab 7.5/325) 1 tab PRN Q8HRS PRN PO MODERATE - SEVERE PAIN Last administered on 06/19/16 08:06; Start 06/16/16 at 20: 30 Tizanidine HCl (Zanaflex) 4 mg PRN Q8HRS PRN PO MUSCLE SPASMS Last administered on 06/18/16 21:17; Start 06/16/16 at 20:30 Zolpidem Tartrate (Ambien) 5 mg QHS PRN PO SLEEP Last administered on 06/17/16 21:34; Start 06/16/16 at 21:00; Stop 06/18/16 at 11:34; Status DC Clonazepam (Klonopin) 0.5 mg BID PO Last administered on 06/19/16 08:05; Start 06/17/16 at 10:00 Gabapentin (Neurontin) 300 mg TID PO Last administered on 06/19/16 08:05; Start 06/17/16 at 10:00 Duloxetine HCl (Cymbalta) 60 mg DAILY PO Last administered on 06/19/16 08:05; Start 06/17/16 at 10:00 Iohexol (Omnipaque 300 Mg/ml) 75 ml 1X ONCE IV Last administered on 06/17/16 10:14; Start 06/17/16 at 10:00; Stop 06/17/16 at 10:01; Status DC Info (Do NOT chart on this entry -- for MONITORING) 1 each PRN DAILY PRN MC SEE COMMENTS; Start 06/17/16 at 10:00; Stop 06/19/16 at 09:59; Status DC Levofloxacin (Levaquin) 500 mg DAILY06 PO Last administered on 06/19/16 08:05; Start 06/17/16 at 13:00 Diazepam (Valium) 10 mg 1X ONCE IV Last administered on 06/17/16 14:10; Start 06/17/16 at 14:15; Stop 06/17/16 at 14:16; Status DC Gadobutrol (Gadavist) 7.5 mmol 1X ONCE IV Last administered on 06/17/16 15:09 ; Start 06/17/16 at 14:45; Stop 06/17/16 at 14:46; Status DC Ketorolac Tromethamine (Toradol) 30 mg 1X ONCE IV Last administered on 15:51; Start 06/17/16 at 16:00; Stop 06/17/16 at 16:01; Status DC Prednisone (Prednisone) 60 mg DAILY PO Last administered on 06/19/16 08:05; Start 06/19/16 at 09:00 Zolpidem Tartrate (Ambien) 10 mg PRN QHS PRN PO SLEEP Last administered on 21:17; Start 06/18/16 at 11:45 Famotidine (Pepcid) 20 mg DAILY PO Last administered on 06/19/16 08:05; Start 06/18/16 at 12:00 Calcium Carbonate/ Glycine (Oscal) 500 mg TIDAFTMEAL PO Last administered on 12:13; Start 06/18/16 at 13:00 Vitamin D (Vitamin D3) 50,000 unit QMTH PO ; Start 06/21/16 at 16:00 Fentanyl Citrate (Fentanyl 2ml Vial) 25 mcg PRN Q5MIN PRN IV MILD PAIN; Start 06/21/16 at 07:00; Stop 06/22/16 at 06:59 Fentanyl Citrate (Fentanyl 2ml Vial) 50 mcg PRN Q5MIN PRN IV MODERATE PAIN; Start 06/21/16 at 07:00; Stop 06/22/16 at 06:59 Morphine Sulfate 1 mg 1 mg PRN Q10MIN PRN IV SEVERE PAIN; Start 06/21/16 at 07: 00; Stop 06/22/16 at 06:59 Lactated Ringer's (Iv Lactated Ringers) 1,000 ml @ 0 mls/hr Q0M IV ; Start 12/28 at 07:00; Stop 06/21/16 at 18:59 Lidocaine HCl 2 ml PRN 1X PRN ID PRIOR TO IV START; Start 06/21/16 at 07:00; Stop 06/22/16 at 06:59 Hydromorphone HCl (Dilaudid) 0.5 mg PRN Q10MIN PRN IV SEV PAIN, Second choice; Start 06/21/16 at 07:00; Stop 06/22/16 at 06:59 Prochlorperazine Edisylate (Compazine) 5 mg PACU PRN PRN IV NAUSEA, MRX1; Start 06/21/16 at 07:00; Stop 06/22/16 at 06:59 Guaifenesin (Mucinex) 600 mg BID PO Last administered on 06/19/16t 08:05; Start 06/18/16 at 21:00 Montelukast Sodium (Singulair) 10 mg QHS PO ; Start 06/19/16 at 21:00 Active Scripts Active Reported Tylenol (Acetaminophen) 325 Mg Tablet 2 Tab PO PRN Q4HRS Hydrocodone-Apap 7.5-325 (Hydrocodone Bit/Acetaminophen) 1 Each Tablet 1 Tab PO Q8HRS PRN Tizanidine Hcl 4 Mg Tablet Zolpidem Tartrate 5 Mg Tablet Furosemide 40 Mg Tablet Benazepril Hcl 40 Mg Tablet Amlodipine Besylate 10 Mg Tablet Vitals/I & O Vital Sign - Last 24 Hours 06/18/16 06/18/16 06/18/16 06/18/16 15:16 18:11 19:00 20:00 Temp 98.4 98.7 98.4 98.7 Pulse 81 77 Resp 17 21 B/P 142/73 172/90 Pulse Ox 93 93 O2 Delivery Nasal Cannula Nasal Cannula Nasal Cannula Nasal Cannula O2 Flow Rate 2.0 2.0 2.0 2.0 06/18/16 06/18/16 06/19/16 06/19/16 21:08 22:59 07:44 08:00 Temp 98.1 98.5 98.1 98.5 Pulse 77 69 Resp 19 21 B/P 152/68 149/73 Pulse Ox 95 95 O2 Delivery Nasal Cannula Nasal Cannula Nasal Cannula Nasal Cannula O2 Flow Rate 2.0 2.0 2.0 2.0 06/19/16 06/19/16 06/19/16 08:06 11:36 11:58 Temp 98.2 98.2 Pulse 69 71 Resp 21 B/P 149/73 157/75 Pulse Ox 94 94 O2 Delivery Nasal Cannula Nasal Cannula O2 Flow Rate 2.0 2.0 Intake and Output 06/18/16 06/18/16 06/19/16 15:00 23:00 07:00 Intake Total 400 ml 750 ml 700 ml Balance 400 ml 750 ml 700 ml CHYNA GURROLA MD Jun 19, 2016 12:55
[2016-06-19 14:45] VITALS: BP 120/75
[2016-06-19 19:00] VITALS: BP 137/57
[2016-06-19] MEDS: ZOLPIDEM 5 MG TABLET. PO PRN (20:44)
[2016-06-19] MEDS ORDERED: MONTELUKAST SODIUM 10 MG TABLET. PO SCH (21:00)
[2016-06-19 23:00] VITALS: BP 151/73
[2016-06-20 03:00] VITALS: BP 157/55
[2016-06-20 05:16] LABS: HEMATOCRIT 31.9 % (36.0-47.0); HEMOGLOBIN 10.1 g/dL (12.0-15.5); RED BLOOD COUNT 3.74 x10^6/uL (3.50-5.40); RED CELL DISTRIBUTION WIDTH 18.6 % (11.5-14.5); WHITE BLOOD COUNT 10.5 x10^3/uL (4.0-11.0)
[2016-06-20 05:46] LABS: CALCIUM 9.1 mg/dL (8.5-10.1); CREATININE 0.6 mg/dL (0.6-1.0); GFR 117.9; POTASSIUM 3.4 mmol/L (3.5-5.1)
[2016-06-20] MEDS: HYDROCODONE/APAP 7.5/325MG TABLET. PO PRN (06:11)
[2016-06-20] MEDS: LEVOFLOXACIN 500 MG TABLET PO SCH (06:11)
[2016-06-20 07:22] VITALS: BP 156/55
[2016-06-20] MEDS: IPRATRPIUM/ALBUTEROL 0.5/2.5MG 3 ML NEBU. NEB SCH ×2 (08:00→11:34)
[2016-06-20 08:25] VITALS: BP 156/55
[2016-06-20] MEDS: FAMOTIDINE 20 MG TABLET. PO SCH (08:42)
[2016-06-20] MEDS: GUAIFENESIN ER 600 MG TABLET.ER PO SCH (08:42)
[2016-06-20] MEDS: GABAPENTIN 300 MG CAPSULE. PO SCH (08:42)
[2016-06-20] MEDS: FUROSEMIDE 40 MG TABLET. PO SCH (08:43)
[2016-06-20] MEDS: CLONAZEPAM 0.5 MG TABLET PO SCH (08:43)
[2016-06-20] MEDS: DULOXETINE HCL 30 MG CAPSULE.DR. PO SCH (08:43)
[2016-06-20] MEDS: PREDNISONE 20 MG TABLET PO SCH (08:43)
[2016-06-20] MEDS: AMLODIPINE BESYLATE 10 MG TABLET. PO SCH (08:44)
[2016-06-20] MEDS: CALCIUM CARBONATE 500 MG TABLET PO SCH ×2 (08:44→12:01)
--- NOTE | 2016-06-20 08:49 | PDOC ---
PULMONARY PROGRESS NOTES Subjective c/o headache no SOA, has cough, nasal congestion Vitals Vital Signs Date Time Temp Pulse Resp B/P Pulse Ox O2 Delivery O2 Flow Rate FiO2 06/20/16 08:44 67 156/55 06/20/16 07:22 98.2 20 96 Room Air 98.2 06/20/16 07:11 2.0 ROS: No Nausea, No Chest Pain, No Abdominal Pain General: Alert, No acute distress Lungs: Wheezing Cardiovascular: S1, S2 Abdomen: Soft, Non-tender Neuro Exam: Alert, Oriented Extremities: Other (mild left lower ext edema) Skin: Warm Labs Laboratory Tests Test 06/20/16 04:20 06/20/16 04:43 06/20/16 04:57 Erythrocyte Sedimentation Rate 72 (0-25) Sodium Level 143mmol/L (136-145) Potassium Level 3.4mmol/L (3.5-5.1) Chloride Level 100mmol/L (98-107) Carbon Dioxide Level 42mmol/L (21-32) Anion Gap 1 (6-14) Blood Urea Nitrogen 20mg/dL (7-20) Creatinine 0.6mg/dL (0.6-1.0) Estimated GFR (Cockcroft-Gault) 117.9 Glucose Level 102mg/dL (70-99) Calcium Level 9.1mg/dL (8.5-10.1) White Blood Count 10.5x10^3/uL (4.0-11.0) Red Blood Count 3.74x10^6/uL (3.50-5.40) Hemoglobin 10.1g/dL (12.0-15.5) Hematocrit 31.9% (36.0-47.0) Mean Corpuscular Volume 85fL (79-100) Mean Corpuscular Hemoglobin 27pg (25-35) Mean Corpuscular Hemoglobin Concent 32g/dL (31-37) Red Cell Distribution Width 18.6% (11.5-14.5) Platelet Count 314x10^3/uL (140-400) Laboratory Tests Test 06/20/16 04:20 06/20/16 04:43 06/20/16 04:57 Erythrocyte Sedimentation Rate 72 (0-25) Sodium Level 143mmol/L (136-145) Potassium Level 3.4mmol/L (3.5-5.1) Chloride Level 100mmol/L (98-107) Carbon Dioxide Level 42mmol/L (21-32) Anion Gap 1 (6-14) Blood Urea Nitrogen 20mg/dL (7-20) Creatinine 0.6mg/dL (0.6-1.0) Estimated GFR (Cockcroft-Gault) 117.9 Glucose Level 102mg/dL (70-99) Calcium Level 9.1mg/dL (8.5-10.1) White Blood Count 10.5x10^3/uL (4.0-11.0) Red Blood Count 3.74x10^6/uL (3.50-5.40) Hemoglobin 10.1g/dL (12.0-15.5) Hematocrit 31.9% (36.0-47.0) Mean Corpuscular Volume 85fL (79-100) Mean Corpuscular Hemoglobin 27pg (25-35) Mean Corpuscular Hemoglobin Concent 32g/dL (31-37) Red Cell Distribution Width 18.6% (11.5-14.5) Platelet Count 314x10^3/uL (140-400) Medications Active Scripts Medications Dose Route/Sig Days Date Category Tylenol (Acetaminophen) 325 Mg Tablet 2 Tab PO PRN Q4HRS 06/16/16 Reported Hydrocodone-Apap 7.5-325 (Hydrocodone Bit/Acetaminophen) 1 Each Tablet 1 Tab PO Q8HRS PRN 06/16/16 Reported Tizanidine Hcl 4 Mg Tablet 06/16/16 Reported Zolpidem Tartrate 5 Mg Tablet 06/16/16 Reported Furosemide 40 Mg Tablet 06/16/16 Reported Benazepril Hcl 40 Mg Tablet 06/16/16 Reported Amlodipine Besylate 10 Mg Tablet 06/16/[address] CHEST 1. No CT evidence of central pulmonary emboli. 2. Moderate coronary artery calcifications. 3. Emphysema. 4. Stable 1 cm right middle lobe pulmonary nodule. 5. New mild scattered tree-in-bud and nodular pulmonary opacities. The findings suggest infection and/or small airway disease. A neoplastic etiology is less likely. CT follow-up is suggested. Impression . 1. Acute on chronic hypercapnic respiratory failure secondary to chronic obstructive pulmonary disease exacerbation and mild patchy pneumonitis. 2. History of left lower extremity DVT, treated 5 years ago with Coumadin. Now comes in with some swelling in the left lower extremity and some chest pain. CT angiogram with no definite pulmonary embolism. no recurrent DVT 3. Mild patchy pneumonitis/ stable right lung nodule. 4. History of polymyalgia rheumatica, on chronic steroids. 5. Abnormal ct chest with Stable 1 cm right middle lobe pulmonary nodule. New mild scattered tree-in-bud and nodular pulmonary opacities. The findings suggest infection and/or small airway disease. A neoplastic etiology is less likely. 6. allergic rhinitis Plan . 1. Continue with present nebulizer treatment. 2. Continue with oxygen. 3. follow up ABGs.as needed 4. Empiric antibiotics. 5. IV Solu-Medrol to prednisone w taper 6. Venous Dopplers of left lower extremity.negative 7. Follow up ct chest in 4-6 weeks 8. sammi grier rn, pt JENNIFER LOUIS MD Jun 20, 2016 08:49
[2016-06-20 10:46] VITALS: BP 147/60
[2016-06-20] MEDS ORDERED: POTASSIUM CHLORIDE 20 MEQ TABLET.ER. PO ONE (11:30)
[2016-06-20] MEDS ORDERED: HYDR-2762 PO (12:08)
[2016-06-20] MEDS ORDERED: BUDE10.2 IH (12:08)
[2016-06-20] MEDS ORDERED: GABA300C8 PO (12:08)
[2016-06-20] MEDS ORDERED: LEVO500T38 PO (12:08)
[2016-06-20] MEDS ORDERED: DULO30CA2 PO (12:08)
[2016-06-20] MEDS ORDERED: PRED20TA PO (12:08)
[2016-06-20] MEDS ORDERED: ZOLP5TAB5 PO (12:08)
[2016-06-20] MEDS ORDERED: CLON0.5T3 PO (12:08)
[2016-06-20] MEDS ORDERED: Montelukast Sodium PO (12:08)
[2016-06-20] MEDS ORDERED: IPRA3AMP NEB (12:08)
--- NOTE | 2016-06-20 12:18 | PDOC ---
SUBJECTIVE Subjective feels better OBJECTIVE Objective VSS Vital Signs Vital Signs Date Time Temp Pulse Resp B/P Pulse Ox O2 Delivery O2 Flow Rate FiO2 06/20/16 11:35 Nasal Cannula 2.0 06/20/16 10:46 98.1 64 20 147/60 93 Room Air 98.1 06/20/16 08:44 67 156/55 06/20/16 08:00 Nasal Cannula 2.0 06/20/16 07:22 98.2 67 20 156/55 96 Room Air 98.2 06/20/16 07:11 16 96 Nasal Cannula 2.0 06/20/16 06:11 19 96 Nasal Cannula 2.0 06/20/16 03:00 98.4 64 20 157/55 96 Room Air 98.4 06/19/16 23:00 98.4 74 19 151/73 92 Nasal Cannula 2.0 98.4 06/19/16 21:27 95 Nasal Cannula 2.0 06/19/16 20:44 17 94 Nasal Cannula 2.0 06/19/16 20:00 Nasal Cannula 2.0 06/19/16 19:00 98.2 74 20 137/57 94 Nasal Cannula 2.0 98.2 06/19/16 17:53 Nasal Cannula 2.0 06/19/16 14:45 98.1 77 20 120/75 98 Nasal Cannula 2.0 98.1 I & O Intake and Output 06/20/16 07:00 Intake Total 600 ml Output Total 400 ml Balance 200 ml Intake Oral 600 ml Output Urine Total 400 ml # Voids 1 PHYSICAL EXAM Physical Exam lungs with less wheezing and better air movement ASSESSMENT/PLAN Assessment/Plan 1. Shortness of breath with hypoxia, due to chronic obstructive pulmonary disease exacerbation, 2. Previous history of pulmonary nodules, stable 3. Headache multifactorial, could be related to her polymyalgia/temporal arteritis 4. History of polymyalgia rheumatica, 5. Chronic obstructive pulmonary disease exacerbation and bronchitis. 6. Peripheral neuropathy. 7. Hypertension, hypertensive cardiovascular disease. 8. Osteoarthritis. 9. Hypothyroidism. 10. Large intracranial meningioma with edema in the right frontal lobe as per MRI home today plan to taper steroid as out pt Problems: COMMENT Lab Laboratory Tests Test 06/20/16 04:20 06/20/16 04:43 06/20/16 04:57 Erythrocyte Sedimentation Rate 72 (0-25) Sodium Level 143mmol/L (136-145) Potassium Level 3.4mmol/L (3.5-5.1) Chloride Level 100mmol/L (98-107) Carbon Dioxide Level 42mmol/L (21-32) Anion Gap 1 (6-14) Blood Urea Nitrogen 20mg/dL (7-20) Creatinine 0.6mg/dL (0.6-1.0) Estimated GFR (Cockcroft-Gault) 117.9 Glucose Level 102mg/dL (70-99) Calcium Level 9.1mg/dL (8.5-10.1) White Blood Count 10.5x10^3/uL (4.0-11.0) Red Blood Count 3.74x10^6/uL (3.50-5.40) Hemoglobin 10.1g/dL (12.0-15.5) Hematocrit 31.9% (36.0-47.0) Mean Corpuscular Volume 85fL (79-100) Mean Corpuscular Hemoglobin 27pg (25-35) Mean Corpuscular Hemoglobin Concent 32g/dL (31-37) Red Cell Distribution Width 18.6% (11.5-14.5) Platelet Count 314x10^3/uL (140-400) MATIAS VALERIO MD Jun 20, 2016 12:17
--- NOTE | 2016-06-20 12:21 | PDOC3 ---
Discharge Summary* Date of Admission: Jun 15, 2016 Date of Discharge: Jun 20, 2016 Admitting Diagnosis Problems Medical Problems: (1) COPD with acute exacerbation Status: Acute Final Diagnosis 1. Shortness of breath with hypoxia, due to chronic obstructive pulmonary disease exacerbation, 2. Previous history of pulmonary nodules, stable 3. Headache multifactorial, could be related to her polymyalgia/temporal arteritis 4. History of polymyalgia rheumatica, 5. Chronic obstructive pulmonary disease exacerbation and bronchitis. 6. Peripheral neuropathy. 7. Hypertension, hypertensive cardiovascular disease. 8. Osteoarthritis. 9. Hypothyroidism. 10. Large intracranial meningioma with edema in the right frontal lobe as per MRI home today plan to taper steroid as out pt Problems Medical Problems: (1) COPD with acute exacerbation Status: Acute CONSULTS pulmonary neurology general surgery Procedures MRI brain CXR CTA chest no PE venous doppler US neg Brief Hospital Course Ms. Tam is a 75 old [sex] who presented with [ ] Disposition/Orders: D/C to Home CONDITION AT DISCHARGE: Improved Diet: Cardiac Scheduled ([Montelukast Sodium]) 10 MG PO QHS Acetaminophen (Tylenol) 2 TAB PO PRN Q4HRS (Reported) Budesonide/Formoterol Fumarate (Symbicort 160-4.5 Mcg Inhaler) 2 PUFF IH BID Clonazepam (Clonazepam) 0.5 MG PO BID Duloxetine Hcl (Cymbalta) 60 MG PO DAILY Gabapentin (Gabapentin) 300 MG PO TID Ipratropium/Albuterol Sulfate (Duoneb 0.5-3(2.5) Mg/3 Ml) 3 ML NEB RTQID Levofloxacin (Levaquin) 500 MG PO DAILY06 Prednisone (Prednisone) 60 MG PO DAILY Scheduled PRN Hydrocodone Bit/Acetaminophen (Hydrocodone-Apap 7.5-325 ) 1 TAB PO Q8HRS PRN PRN PAIN Zolpidem Tartrate (Zolpidem Tartrate) 5 TAB PO HS PRN PRN INSOMNIA Miscellaneous Medications Amlodipine Besylate (Amlodipine Besylate) (Reported) Benazepril Hcl (Benazepril Hcl) (Reported) Furosemide (Furosemide) (Reported) Tizanidine Hcl (Tizanidine Hcl) (Reported) FOLLOW UP APPOINTMENT: Dr. Valerio [address] Coleman 4 weeks Time Spent Total time spent with patient [] minutes for coordination of care, counseling, and education. MATIAS VALERIO MD Jun 20, 2016 12:21
[2016-06-21] MEDS ORDERED: PROCHLORPERAZINE 10 MG/2 ML VIAL. IV PRN (07:00)
[2016-06-21] MEDS ORDERED: HYDROMORPHONE 2 MG/ML VIAL. IV PRN (07:00)
[2016-06-21] MEDS ORDERED: IV RINGERS,LACTATED 1000ML 1,000 ML IV SCH (07:00)
[2016-06-21] MEDS ORDERED: LIDOCAINE 1% 1 ML SYRINGE. ID PRN (07:00)
[2016-06-21] MEDS ORDERED: MORPHINE SULFATE 2 MG/ML DISP.SYRIN. IV PRN (07:00)
[2016-06-21] MEDS ORDERED: FENTANYL PF 100 MCG/2 ML VIAL. IV PRN ×2 (07:00)
[2016-06-21] MEDS ORDERED: BUPIVAC MPF-EPI 0.5%-1:200000 30 ML VIAL. ONE (07:18)
[2016-06-21] MEDS ORDERED: CHOLECALCIFEROL (VITAMIN D3) 5,000 UNIT CAPSULE PO SCH (16:00)
== END 2016-06-20 13:18 | disposition home or self-care (01) | DRG 190 ==
LOC: ER 15:48 → 6 SOUTH 17:50
PROVIDERS: ADMIT Internal Medicine; ATTEND Internal Medicine
DX: J44.0 Chronic obstructive pulmonary disease with (acute) lower respiratory infection (principal); J18.9 Pneumonia, unspecified organism; J96.21 Acute and chronic respiratory failure with hypoxia; J96.22 Acute and chronic respiratory failure with hypercapnia; G93.6 Cerebral edema; J44.1 Chronic obstructive pulmonary disease with (acute) exacerbation; E03.9 Hypothyroidism, unspecified; F17.200 Nicotine dependence, unspecified, uncomplicated; G44.209 Tension-type headache, unspecified, not intractable; G47.00 Insomnia, unspecified; M19.90 Unspecified osteoarthritis, unspecified site; M54.9 Dorsalgia, unspecified; I11.9 Hypertensive heart disease without heart failure; J30.9 Allergic rhinitis, unspecified; D32.0 Benign neoplasm of cerebral meninges; G62.9 Polyneuropathy, unspecified; G89.29 Other chronic pain; M31.5 Giant cell arteritis with polymyalgia rheumatica; M79.7 Fibromyalgia; M81.0 Age-related osteoporosis without current pathological fracture; Z79.52 Long term (current) use of systemic steroids; Z82.49 Family history of ischemic heart disease and other diseases of the circulatory system; Z86.011 Personal history of benign neoplasm of the brain; Z86.718 Personal history of other venous thrombosis and embolism; Z92.3 Personal history of irradiation; Z88.0 Allergy status to penicillin; Z88.8 Allergy status to other drugs, medicaments and biological substances
CPT/HCPCS: 36415; 36600; 70553; 71010; 71275; 80048; 80053; 82805; 83880; 84484; 85027; 85651; 87804; 93005; 93971; 94620; 94640; 94760; 96374; 96375; J1885; J1940; J2930; J3010; J3360; J3490; J7512; J7620; Q9967; 99285-25; A9585

== ENCOUNTER → 2017-04-29 | Outpatient (CLI) | payer OTHER | END | disposition home or self-care (01) | LOC: KCIC 13:56 | DX: M17.0 Bilateral primary osteoarthritis of knee (principal); M16.0 Bilateral primary osteoarthritis of hip | CPT/HCPCS: 73502; 73560 ==

== ENCOUNTER 2017-05-27 17:25 | Emergency (ER) | payer OTHER ==
[2017-05-27 18:22] LABS: ADD MAN DIFF? NO
[2017-05-27 18:28] LABS: BASO # 0.1 x10^3/uL (0.0-0.2); BASO % 1 % (0-3); EOS # 0.2 x10^3/uL (0.0-0.7); EOS % 3 % (0-3); HEMATOCRIT 33.5 % (36.0-47.0); HEMOGLOBIN 10.9 g/dL (12.0-15.5); LYMPH # 1.1 x10^3/uL (1.0-4.8); LYMPH % 16 % (24-48); MEAN CORPUSCULAR HEMOGLOBIN 27 pg (25-35); MEAN CORPUSCULAR HGB CONC 33 g/dL (31-37); MEAN CORPUSCULAR VOLUME 84 fL (79-100); MONO # 0.3 x10^3/uL (0.0-1.1); MONO % 5 % (0-9); NEUT # 5.3 x10^3uL (1.8-7.7); NEUT % 76 % (31-73); PLATELET COUNT 393 x10^3/uL (140-400); RED BLOOD COUNT 3.98 x10^6/uL (3.50-5.40); RED CELL DISTRIBUTION WIDTH 17.5 % (11.5-14.5)
[2017-05-27] MEDS: ASPIRIN 325 MG TABLET PO (18:32)
[2017-05-27] MEDS: MORPHINE SULFATE 4 MG/ML DISP.SYRIN. IV/SQ (18:33)
[2017-05-27 18:38] LABS: PARTIAL THROMBOPLASTIN TIME 31 SEC (24-38); PROTHROMBIN TIME PATIENT 12.9 SEC (11.7-14.0)
[2017-05-27 18:43] LABS: ANION GAP 9 (6-14); BLOOD UREA NITROGEN 9 mg/dL (7-20); BUN/CREATININE RATIO 13 (6-20); CALCIUM 9.5 mg/dL (8.5-10.1); CARBON DIOXIDE 30 mmol/L (21-32); CHLORIDE 101 mmol/L (98-107); CREATININE 0.7 mg/dL (0.6-1.0); GFR 98.4; GLUCOSE 133 mg/dL (70-99); POTASSIUM 4.1 mmol/L (3.5-5.1); SODIUM 140 mmol/L (136-145)
[2017-05-27 18:50] LABS: ALBUMIN 3.7 g/dL (3.4-5.0); ALBUMIN/GLOBULIN RATIO 0.8 (1.0-1.7); ALK PHOS 86 U/L (46-116); ALT (SGPT) 15 U/L (14-59); AST (SGOT) 30 U/L (15-37); TOTAL BILIRUBIN 0.2 mg/dL (0.2-1.0); TOTAL PROTEIN 8.2 g/dL (6.4-8.2)
[2017-05-27 18:51] LABS: TROPONINI < 0.017 ng/mL (0.000-0.055)
[2017-05-27 18:54] LABS: NT-PRO BNP 41 pg/mL (0-449)
[2017-05-27] MEDS ORDERED: CONTRAST GIVEN MC (19:45)
[2017-05-27] MEDS ORDERED: IOHEXOL 300 MG/ML 100ML VIAL. IV (20:00)
== END 2017-05-27 19:51 | disposition home or self-care (01) ==
LOC: ER 17:25
DX: R07.89 Other chest pain (principal); R06.02 Shortness of breath; J44.9 Chronic obstructive pulmonary disease, unspecified; M79.7 Fibromyalgia; I11.0 Hypertensive heart disease with heart failure; I50.9 Heart failure, unspecified; M81.0 Age-related osteoporosis without current pathological fracture; G89.29 Other chronic pain; E03.9 Hypothyroidism, unspecified; E66.9 Obesity, unspecified; Z87.891 Personal history of nicotine dependence; Z88.0 Allergy status to penicillin; Z99.81 Dependence on supplemental oxygen; Z88.6 Allergy status to analgesic agent; Z68.34 Body mass index [BMI] 34.0-34.9, adult
CPT/HCPCS: 36415; 71046; 80053; 83880; 84484; 85025; 85610; 85730; 93005; 96374; 99285-25; J2270

== ENCOUNTER 2017-06-03 18:48 | Emergency (ER) | payer OTHER ==
[2017-06-03] MEDS: oxyCODONE/APAP 5/325 1 TAB TABLET PO (19:34)
[2017-06-03] MEDS: hydrOXYzine PAMOATE 25 MG CAPSULE PO (19:34)
== END 2017-06-03 19:50 | disposition home or self-care (01) ==
LOC: ER 18:48
DX: R21 Rash and other nonspecific skin eruption (principal); J44.9 Chronic obstructive pulmonary disease, unspecified; M79.7 Fibromyalgia; E03.9 Hypothyroidism, unspecified; G89.29 Other chronic pain; I10 Essential (primary) hypertension; Z88.0 Allergy status to penicillin; Z88.6 Allergy status to analgesic agent
CPT/HCPCS: 99283; Q0177

== ENCOUNTER 2017-06-06 10:25 | Inpatient (IN) | payer OTHER ==
[2017-06-06] MEDS: diphenhydrAMINE 50 MG/ML VIAL IVP (11:15)
[2017-06-06 11:17] LABS: BILIRUBIN,URINE NEGATIVE (NEG); CLARITY,URINE CLEAR; COLOR,URINE YELLOW; GLUCOSE,URINE NEGATIVE (NEG); NITRITE,URINE NEGATIVE (NEG); PROTEIN,URINE NEGATIVE (NEG-TRACE)
[2017-06-06 11:21] LABS: ADD MAN DIFF? NO
[2017-06-06 11:22] LABS: AMPHETAMINE/METHAMPHETAMINE NEG (NEG); BARBITURATES NEG (NEG); BENZODIAZEPINES NEG (NEG); CANNABINOIDS NEG (NEG); COCAINE NEG (NEG); ETHANOL, URINE NEG (NEG); METHADONE NEG (NEG); OPIATES POS (NEG); PHENCYCLIDINE NEG (NEG)
[2017-06-06 11:24] LABS: BASO % 1 % (0-3); EOS # 0.8 x10^3/uL (0.0-0.7); EOS % 11 % (0-3); LYMPH % 12 % (24-48); MEAN CORPUSCULAR HEMOGLOBIN 27 pg (25-35); MEAN CORPUSCULAR HGB CONC 32 g/dL (31-37); MEAN CORPUSCULAR VOLUME 84 fL (79-100); MONO # 0.3 x10^3/uL (0.0-1.1); MONO % 4 % (0-9); NEUT # 5.6 x10^3uL (1.8-7.7); NEUT % 72 % (31-73); PLATELET COUNT 423 x10^3/uL (140-400); RED BLOOD COUNT 4.08 x10^6/uL (3.50-5.40); RED CELL DISTRIBUTION WIDTH 17.2 % (11.5-14.5); WHITE BLOOD COUNT 7.8 x10^3/uL (4.0-11.0)
[2017-06-06] MEDS: DEXAMETHASONE SOD PHOS 20 MG/5 ML VIAL. IV (11:25)
[2017-06-06] MEDS: FAMOTIDINE 20 MG/2 ML VIAL IVP (11:26)
[2017-06-06] MEDS: fentaNYL PF VIAL 100 MCG/2 ML VIAL IV (11:26)
[2017-06-06 11:27] LABS: BACTERIA,URINE FEW /HPF (0-FEW); RBC,URINE 0 /HPF (0-2); SQUAMOUS EPITHELIAL CELL,UR FEW /LPF; WBC,URINE 0 /HPF (0-4)
[2017-06-06] MEDS: diazePAM 5 MG TABLET PO (11:29)
[2017-06-06 11:45] LABS: ETHANOL < 10 mg/dL (0-10)
[2017-06-06 11:51] LABS: ALBUMIN 3.7 g/dL (3.4-5.0); ALBUMIN/GLOBULIN RATIO 0.9 (1.0-1.7); ALK PHOS 77 U/L (46-116); ALT (SGPT) 21 U/L (14-59); ANION GAP 8 (6-14); AST (SGOT) 32 U/L (15-37); BLOOD UREA NITROGEN 15 mg/dL (7-20); BUN/CREATININE RATIO 19 (6-20); CALCIUM 9.9 mg/dL (8.5-10.1); CARBON DIOXIDE 33 mmol/L (21-32); CHLORIDE 101 mmol/L (98-107); CREATININE 0.8 mg/dL (0.6-1.0); GFR 84.4; GLUCOSE 138 mg/dL (70-99); SODIUM 142 mmol/L (136-145); TOTAL BILIRUBIN 0.4 mg/dL (0.2-1.0); TOTAL PROTEIN 7.6 g/dL (6.4-8.2)
[2017-06-06 11:55] LABS: POTASSIUM 2.9 mmol/L (3.5-5.1)
[2017-06-06 11:55] LABS: TROPONINI < 0.017 ng/mL (0.000-0.055)
[2017-06-06 12:10] LABS: CKMB MASS < 0.5 ng/mL (0.0-3.6); CREATINE KINASE 42 U/L (26-192)
[2017-06-06] MEDS: POTASSIUM CHLORIDE 20 MEQ TABLET.ER. PO (12:13)
[2017-06-06] MEDS ORDERED: ACETAMINOPHEN 325 MG TABLET. PO (13:15)
[2017-06-06] MEDS ORDERED: fentaNYL PF VIAL 100 MCG/2 ML VIAL IV (13:15)
[2017-06-06] MEDS: POTASSIUM CITRATE 10 MEQ TABLET.ER PO ×2 (14:00→20:32)
[2017-06-06] MEDS ORDERED: ALBUTEROL SULFATE 2.5 MG/3 ML NEBU. NEB (16:45)
[2017-06-06] MEDS ORDERED: NON FORMULARY ITEM (Albuterol Sulfate (Proair Hfa Inhaler) 1 PUFF) INH (16:45)
[2017-06-06] MEDS: tiZANidine 4 MG TABLET. PO (17:08)
[2017-06-06] MEDS: HYDROcodone/APAP 10/325 1 TAB TABLET PO (17:08)
[2017-06-06] MEDS: BUDESONIDE 0.5 MG/2 ML NEBU. NEB (19:16)
[2017-06-06] MEDS: ALBUTEROL SULFATE 2.5 MG/3 ML NEBU. NEB (19:16)
[2017-06-06] MEDS: GABAPENTIN 300 MG CAPSULE. PO (20:32)
[2017-06-06] MEDS: diphenhydrAMINE HCL 25 MG CAPSULE PO (20:32)
[2017-06-06] MEDS: clonazePAM 0.5 MG TABLET PO (20:32)
[2017-06-06] MEDS: TRIAMCINOLONE ACETONIDE 0.1% TOPICAL CREAM 15GM TUBE. TP (20:32)
[2017-06-06] MEDS ORDERED: NON FORMULARY ITEM (Budesonide/Formoterol Fumarate (Symbicort 160-4.5 Mcg Inhaler) 2 PUFF) IH (21:00)
[2017-06-07] MEDS: tiZANidine 4 MG TABLET. PO ×3 (00:50→20:57)
[2017-06-07 04:57] LABS: ADD MAN DIFF? NO
[2017-06-07 05:04] LABS: BASO % 0 % (0-3); EOS % 0 % (0-3); HEMATOCRIT 29.5 % (36.0-47.0); HEMOGLOBIN 9.7 g/dL (12.0-15.5); LYMPH % 17 % (24-48); MEAN CORPUSCULAR HEMOGLOBIN 28 pg (25-35); MEAN CORPUSCULAR HGB CONC 33 g/dL (31-37); MEAN CORPUSCULAR VOLUME 84 fL (79-100); MONO # 0.5 x10^3/uL (0.0-1.1); MONO % 9 % (0-9); NEUT # 4.2 x10^3uL (1.8-7.7); NEUT % 74 % (31-73); PLATELET COUNT 378 x10^3/uL (140-400); RED BLOOD COUNT 3.51 x10^6/uL (3.50-5.40); RED CELL DISTRIBUTION WIDTH 17.3 % (11.5-14.5); WHITE BLOOD COUNT 5.7 x10^3/uL (4.0-11.0)
[2017-06-07 05:38] LABS: ALBUMIN 3.1 g/dL (3.4-5.0); ALBUMIN/GLOBULIN RATIO 0.9 (1.0-1.7); ALK PHOS 74 U/L (46-116); ALT (SGPT) 12 U/L (14-59); ANION GAP 7 (6-14); AST (SGOT) 18 U/L (15-37); BLOOD UREA NITROGEN 18 mg/dL (7-20); BUN/CREATININE RATIO 26 (6-20); CALCIUM 9.4 mg/dL (8.5-10.1); CARBON DIOXIDE 31 mmol/L (21-32); CHLORIDE 105 mmol/L (98-107); CREATININE 0.7 mg/dL (0.6-1.0); GFR 98.4; GLUCOSE 157 mg/dL (70-99); SODIUM 143 mmol/L (136-145); TOTAL BILIRUBIN 0.3 mg/dL (0.2-1.0); TOTAL PROTEIN 6.7 g/dL (6.4-8.2)
[2017-06-07] MEDS: ALBUTEROL SULFATE 2.5 MG/3 ML NEBU. NEB ×4 (08:00→20:17)
[2017-06-07] MEDS: BUDESONIDE 0.5 MG/2 ML NEBU. NEB ×2 (08:38→16:07)
[2017-06-07] MEDS: LISINOPRIL 20 MG TABLET PO (08:39)
[2017-06-07] MEDS: amLODIPine BESYLATE 10 MG TABLET PO (08:39)
[2017-06-07] MEDS: FAMOTIDINE 20 MG TABLET. PO (08:39)
[2017-06-07] MEDS: GABAPENTIN 300 MG CAPSULE. PO ×3 (08:39→20:57)
[2017-06-07] MEDS: clonazePAM 0.5 MG TABLET PO ×2 (08:39→20:57)
[2017-06-07] MEDS: buPROPion XL 150 MG TAB.ER.24H. PO (08:39)
[2017-06-07] MEDS: FUROSEMIDE 40 MG TABLET. PO (08:39)
[2017-06-07] MEDS: DULoxetine HCL 30 MG CAPSULE.DR PO (08:40)
[2017-06-07] MEDS: LEFLUNOMIDE 10 MG TABLET. PO (08:40)
[2017-06-07] MEDS: POTASSIUM CITRATE 10 MEQ TABLET.ER PO ×3 (08:40→20:57)
[2017-06-07] MEDS: TRIAMCINOLONE ACETONIDE 0.1% TOPICAL CREAM 15GM TUBE. TP ×2 (08:42→20:58)
[2017-06-07] MEDS: predniSONE 20 MG TABLET PO (08:44)
[2017-06-07] MEDS ORDERED: predniSONE 10 MG TABLET PO (09:00)
[2017-06-07] MEDS ORDERED: predniSONE 20 MG TABLET PO (09:00)
[2017-06-07 09:14] LABS: THYROID STIM HORMONE (TSH) 0.104 uIU/mL (0.358-3.74)
[2017-06-07 09:57] LABS: SEDIMENTATION RATE 30 (0-25)
[2017-06-07] MEDS: ACETAMINOPHEN 325 MG TABLET. PO (11:31)
[2017-06-08] MEDS: ACETAMINOPHEN 325 MG TABLET. PO (03:27)
[2017-06-08] MEDS: tiZANidine 4 MG TABLET. PO ×2 (05:13→21:03)
[2017-06-08] MEDS: ALBUTEROL SULFATE 2.5 MG/3 ML NEBU. NEB ×4 (07:35→19:13)
[2017-06-08] MEDS: BUDESONIDE 0.5 MG/2 ML NEBU. NEB ×2 (07:35→19:13)
[2017-06-08] MEDS: buPROPion XL 150 MG TAB.ER.24H. PO (09:07)
[2017-06-08] MEDS: clonazePAM 0.5 MG TABLET PO ×2 (09:07→21:03)
[2017-06-08] MEDS: LISINOPRIL 20 MG TABLET PO (09:07)
[2017-06-08] MEDS: LEFLUNOMIDE 10 MG TABLET. PO (09:07)
[2017-06-08] MEDS: amLODIPine BESYLATE 5 MG TABLET PO (09:08)
[2017-06-08] MEDS: FAMOTIDINE 20 MG TABLET. PO (09:09)
[2017-06-08] MEDS: GABAPENTIN 300 MG CAPSULE. PO ×3 (09:09→21:03)
[2017-06-08] MEDS: predniSONE 20 MG TABLET PO (09:09)
[2017-06-08] MEDS: DULoxetine HCL 30 MG CAPSULE.DR PO (09:09)
[2017-06-08] MEDS: TRIAMCINOLONE ACETONIDE 0.1% TOPICAL CREAM 15GM TUBE. TP ×2 (09:10→21:03)
[2017-06-08 10:06] LABS: FREE T4 1.11 ng/dL (0.76-1.46)
[2017-06-08] MEDS: HYDROcodone/APAP 7.5/325MG 1 TAB TABLET PO (14:33)
[2017-06-08] MEDS: TEMAZEPAM 7.5 MG CAPSULE PO (21:03)
[2017-06-09] MEDS: HYDROcodone/APAP 7.5/325MG 1 TAB TABLET PO (06:35)
[2017-06-09] MEDS: tiZANidine 4 MG TABLET. PO (06:39)
[2017-06-09] MEDS: ALBUTEROL SULFATE 2.5 MG/3 ML NEBU. NEB ×2 (07:34→11:15)
[2017-06-09] MEDS: BUDESONIDE 0.5 MG/2 ML NEBU. NEB (07:34)
[2017-06-09] MEDS: LISINOPRIL 20 MG TABLET PO (08:50)
[2017-06-09] MEDS: buPROPion XL 150 MG TAB.ER.24H. PO (08:50)
[2017-06-09] MEDS: DULoxetine HCL 30 MG CAPSULE.DR PO (08:50)
[2017-06-09] MEDS: predniSONE 20 MG TABLET PO (08:51)
[2017-06-09] MEDS: clonazePAM 0.5 MG TABLET PO (08:51)
[2017-06-09] MEDS: FAMOTIDINE 20 MG TABLET. PO (08:51)
[2017-06-09] MEDS: GABAPENTIN 300 MG CAPSULE. PO (08:51)
[2017-06-09] MEDS: amLODIPine BESYLATE 5 MG TABLET PO (08:51)
[2017-06-09] MEDS: LEFLUNOMIDE 10 MG TABLET. PO (08:51)
[2017-06-09] MEDS: ACETAMINOPHEN 325 MG TABLET. PO (08:51)
[2017-06-09] MEDS: TRIAMCINOLONE ACETONIDE 0.1% TOPICAL CREAM 15GM TUBE. TP (09:00)
== END 2017-06-09 13:10 | disposition home or self-care (01) | DRG 547 ==
LOC: 5 NORTH 14:35 → ER 10:25 → 5 NORTH 13:45
DX: M35.3 Polymyalgia rheumatica (principal); G62.9 Polyneuropathy, unspecified; Z99.81 Dependence on supplemental oxygen; M79.7 Fibromyalgia; E05.90 Thyrotoxicosis, unspecified without thyrotoxic crisis or storm; L29.9 Pruritus, unspecified; L25.9 Unspecified contact dermatitis, unspecified cause; J44.9 Chronic obstructive pulmonary disease, unspecified; I10 Essential (primary) hypertension; E03.9 Hypothyroidism, unspecified; E87.6 Hypokalemia; G89.29 Other chronic pain; M19.90 Unspecified osteoarthritis, unspecified site; M81.0 Age-related osteoporosis without current pathological fracture; Z86.011 Personal history of benign neoplasm of the brain; Z88.0 Allergy status to penicillin; Z88.8 Allergy status to other drugs, medicaments and biological substances; Z92.3 Personal history of irradiation
CPT/HCPCS: 36415; 71045; 80053; 80307; 81001; 82553; 84439; 84443; 84481; 84484; 85025; 85651; 93005; 94640; 94760; 96374; 96375; 99285; 99285-25; G0480; J1100; J1200; J3010; J7512; J7613; J7626; Q0163; S0028

== ENCOUNTER → 2017-07-06 | Outpatient (CLI) | payer OTHER | END | disposition home or self-care (01) | LOC: KCIC US 12:27 | DX: R94.6 Abnormal results of thyroid function studies (principal) | CPT/HCPCS: 76536 ==

== ENCOUNTER → 2017-10-27 | Outpatient (CLI) | payer OTHER ==
[2017-06-09 10:30] VITALS: BP 99/63
[~2017-10-27] MED LIST: ACET325T9 PO; AMLO10TA2 PO; BENA40TA3; BENA40TA3 PO; BUDE10.2 IH; BUPR150T6 PO; CLON0.5T11 PO; DULO30CA2 PO; DULO60CA44 PO; FURO40TA4 PO; GABA300C8 PO; HYDR-2762 PO; HYDR-2766 PO; HYDR25CA75 PO; IPRA3AMP29 NEB; LEFLUNOMIDE20 MG PO; LEVO500T59 PO; Montelukast Sodium PO; OXYC-323 PO; PRED-220 PO; PRED20TA PO; PROAIR HFA8.5 GM INH; TIZA4TAB; TIZA4TAB PO; ZOLP5TAB5; ZOLP5TAB5 PO
[2017-10-27 15:27] LABS: BASO # 0.1 x10^3/uL (0.0-0.2); BASO % 1 % (0-3); EOS # 0.1 x10^3/uL (0.0-0.7); EOS % 2 % (0-3); HEMOGLOBIN 10.3 g/dL (12.0-15.5); LYMPH # 1.5 x10^3/uL (1.0-4.8); LYMPH % 21 % (24-48); MEAN CORPUSCULAR HEMOGLOBIN 27 pg (25-35); MEAN CORPUSCULAR HGB CONC 33 g/dL (31-37); MEAN CORPUSCULAR VOLUME 83 fL (79-100); MONO # 0.5 x10^3/uL (0.0-1.1); MONO % 7 % (0-9); NEUT # 4.9 x10^3uL (1.8-7.7); NEUT % 70 % (31-73); PLATELET COUNT 405 x10^3/uL (140-400); RED BLOOD COUNT 3.74 x10^6/uL (3.50-5.40); RED CELL DISTRIBUTION WIDTH 18.4 % (11.5-14.5); WHITE BLOOD COUNT 7.1 x10^3/uL (4.0-11.0)
[2017-10-27 15:41] LABS: BILIRUBIN,URINE NEGATIVE (NEG); CLARITY,URINE CLEAR; COLOR,URINE YELLOW; NITRITE,URINE NEGATIVE (NEG); PH,URINE 5.5; PROTEIN,URINE NEGATIVE (NEG-TRACE); UROBILINOGEN,URINE 0.2 mg/dL (0.2 mg/dL)
[2017-10-27 15:50] LABS: BACTERIA,URINE FEW /HPF (0-FEW); HYALINE CASTS, URINE FEW /HPF; RBC,URINE 0 /HPF (0-2); SQUAMOUS EPITHELIAL CELL,UR FEW /LPF; WBC,URINE 0 /HPF (0-4)
[2017-10-27 15:53] LABS: ALBUMIN 3.7 g/dL (3.4-5.0); ALBUMIN/GLOBULIN RATIO 0.8 (1.0-1.7); CALCIUM 9.3 mg/dL (8.5-10.1); CREATININE 0.9 mg/dL (0.6-1.0); GFR 73.5; POTASSIUM 3.1 mmol/L (3.5-5.1); TOTAL BILIRUBIN 0.3 mg/dL (0.2-1.0); TOTAL PROTEIN 8.2 g/dL (6.4-8.2)
[2017-10-27 15:54] LABS: CHOLESTEROL/HDL RATIO 3.1
== END | disposition home or self-care (01) ==
LOC: LAB 14:48
PROVIDERS: ATTEND Internal Medicine
DX: I11.0 Hypertensive heart disease with heart failure (principal); I50.9 Heart failure, unspecified; D50.8 Other iron deficiency anemias; J44.9 Chronic obstructive pulmonary disease, unspecified; E03.9 Hypothyroidism, unspecified; Z88.0 Allergy status to penicillin; Z88.8 Allergy status to other drugs, medicaments and biological substances; Z88.6 Allergy status to analgesic agent; Z87.891 Personal history of nicotine dependence
CPT/HCPCS: 36415; 80053; 80061; 81001; 82607; 82728; 82746; 83540; 83550; 84443; 85025

== ENCOUNTER → 2018-02-24 | Outpatient (CLI) | payer OTHER ==
[2017-06-09 10:30] VITALS: BP 99/63
[~2018-02-24] MED LIST changes: -AMLO10TA2 PO; +AMLO10TA6 PO; +GABA300C18 PO; -GABA300C8 PO; -HYDR-2762 PO; +HYDR-2765 PO; -HYDR-2766 PO; +HYDR-2769 PO; -OXYC-323 PO; +OXYC1TAB15 PO
--- NOTE | 2018-02-24 14:17 | CARD ---
MR#: [id number] Date of Study: 02/24/2018 Ordering Physician: MAXIM HERRERA, Referring Physician: MAXIM HERRERA Tech: Monica Valero SHAYLA APPROVED REPORT EXAM: Two-dimensional and M-mode echocardiogram with Doppler and color Doppler. Other Information Quality : AverageHR: 85bpm Rhythm : NSR INDICATION Murmur 2D DIMENSIONS RVDd2.7 (2.9-3.5cm)Left Atrium(2D)3.2 (1.6-4.0cm) IVSd1.2 (0.7-1.1cm)Aortic Root(2D)2.9 (2.0-3.7cm) LVDd3.8 (3.9-5.9cm)LVOT Diameter2.0 (1.8-2.4cm) PWd1.1 (0.7-1.1cm)LVDs2.4 (2.5-4.0cm) FS (%) 37.5 %SV43.1 ml M-Mode DIMENSIONS Left Atrium(MM)3.32 (2.5-4.0cm)Aortic Root3.06 (2.2-3.7cm) Aortic Valve AoV Peak Estiven.164.6cm/sAoV VTI32.9cm AO Peak GR.10.8mmHgLVOT Peak Estiven.130.4cm/s AO Mean GR.7mmHgAVA (VMAX)2.41cm2 JACINTO (VTI)2.40cm2 Mitral Valve MV E Mxvbmwah29.3cm/sMV DECEL DLVU730lh MV A Rjfysusy63.2cm/sE/A Ratio0.9 MV A [id number] Pulmonary Valve PV Peak Xqaavccf254.8cm/s LEFT VENTRICLE The left ventricle is normal size. There is borderline to mild concentric left ventricular hypertroph y. The left ventricular systolic function is normal and the ejection fraction is within normal range. Ventricular ejection fraction is 60-65%. There is normal LV segmental wall motion. Transmitral Doppl er flow pattern is Grade II-pseudonormal filling dynamics. RIGHT VENTRICLE The right ventricle is normal size. The right ventricular systolic function is normal. ATRIA The left atrium size is normal. The right atrium size is normal. The interatrial septum is intact wit h no evidence for an atrial septal defect or patent foramen ovale as noted on 2-D or Doppler imaging. AORTIC VALVE The aortic valve is mildly calcified. The aortic valve is probably trileaflet. Doppler and Color Flow revealed no significant aortic regurgitation. There is no significant aortic valvular stenosis. MITRAL VALVE The mitral valve is normal in structure and function. There is no evidence of mitral valve prolapse. There is no mitral valve stenosis. Doppler and Color-flow revealed trace mitral regurgitation. TRICUSPID VALVE The tricuspid valve is normal in structure and function. Doppler and Color Flow revealed trace tricus pid regurgitation. There is no tricuspid valve prolapse or vegetation. There is no tricuspid valve st enosis. PULMONIC VALVE Pulmonic valve not well visualized. GREAT VESSELS The aortic root is normal in size. The ascending aorta is normal in size. The IVC is normal in size a nd collapses >50% with inspiration. PERICARDIAL EFFUSION There is a trace pericardial effusion with no hemodynamic significance. Critical Notification Critical Value: No <Conclusion> The left ventricle is normal size. The left ventricular systolic function is normal and the ejection fraction is within normal range. Ventricular ejection fraction is 60-65%. There is borderline to mild concentric left ventricular hypertrophy. There is no significant aortic valvular stenosis. Doppler and Color Flow revealed no significant aortic regurgitation. Doppler and Color-flow revealed trace mitral regurgitation. Doppler and Color Flow revealed trace tricuspid regurgitation. There is a trace pericardial effusion with no hemodynamic significance. Signed by : Lg Cason MD Electronically Approved : 02/24/2018 14:15:15
== END | disposition home or self-care (01) ==
LOC: ECHO 13:11
PROVIDERS: ATTEND Pediatrics
DX: R01.1 Cardiac murmur, unspecified (principal); F17.210 Nicotine dependence, cigarettes, uncomplicated
CPT/HCPCS: 93306

== ENCOUNTER → 2018-04-04 | Outpatient (CLI) | payer OTHER ==
[2017-06-09 10:30] VITALS: BP 99/63
[~2018-04-04] MED LIST changes: +ALBU2.5V8 INH; -PROAIR HFA8.5 GM INH
[2018-04-04 13:11] LABS: BASO # 0.1 x10^3/uL (0.0-0.2); BASO % 1 % (0-3); EOS # 0.1 x10^3/uL (0.0-0.7); EOS % 2 % (0-3); HEMATOCRIT 32.2 % (36.0-47.0); HEMOGLOBIN 10.5 g/dL (12.0-15.5); LYMPH # 1.6 x10^3/uL (1.0-4.8); LYMPH % 25 % (24-48); MEAN CORPUSCULAR HEMOGLOBIN 27 pg (25-35); MEAN CORPUSCULAR HGB CONC 33 g/dL (31-37); MEAN CORPUSCULAR VOLUME 81 fL (79-100); MONO # 0.5 x10^3/uL (0.0-1.1); MONO % 9 % (0-9); NEUT # 4.1 x10^3uL (1.8-7.7); NEUT % 64 % (31-73); PLATELET COUNT 372 x10^3/uL (140-400); RED BLOOD COUNT 3.97 x10^6/uL (3.50-5.40); RED CELL DISTRIBUTION WIDTH 18.8 % (11.5-14.5); WHITE BLOOD COUNT 6.3 x10^3/uL (4.0-11.0)
[2018-04-04 13:19] LABS: ALBUMIN 3.9 g/dL (3.4-5.0); ALBUMIN/GLOBULIN RATIO 0.8 (1.0-1.7); C-REACTIVE PROTEIN 30.8 mg/L (0-3.3); CREATININE 0.9 mg/dL (0.6-1.0); GFR 73.5; POTASSIUM 3.4 mmol/L (3.5-5.1); TOTAL BILIRUBIN 0.3 mg/dL (0.2-1.0); TOTAL PROTEIN 8.5 g/dL (6.4-8.2)
== END | disposition home or self-care (01) ==
LOC: LAB 12:40
PROVIDERS: ATTEND Internal Medicine Rheumatology
DX: M05.79 Rheumatoid arthritis with rheumatoid factor of multiple sites without organ or systems involvement (principal)
CPT/HCPCS: 36415; 80053; 85025; 85651; 86140

== ENCOUNTER 2018-10-31 17:01 | Emergency (ER) | payer OTHER, MEDICAID ==
[~2018-10-31] VITALS: Ht 157.5 cm; Wt 70.1 kg
[~2018-10-31 17:01] MED LIST changes: -AMLO10TA6 PO; +AMLO10TA8 PO; -DULO60CA44 PO; +DULO60CA45 PO; -TIZA4TAB; -TIZA4TAB PO; +TIZA4TAB2; +TIZA4TAB2 PO
[2018-10-31 17:15] VITALS: BP 177/88
[2018-10-31] MEDS ORDERED: HYDROcodone/APAP 5/325MG 1 TAB TABLET PO ONE (17:30)
[2018-10-31] MEDS ORDERED: CYCLOBENZAPRINE 10 MG TABLET. PO ONE (17:30)
[2018-10-31] MEDS ORDERED: CYCL10TA2 PO (18:32)
--- NOTE | 2018-10-31 18:33 | PHYS DOC ---
Past Medical History Past Medical History: Arthritis, COPD, Fibromyalgia, Hypertension, Hypothyroid, Other Additional Past Medical Histor: neuropathy,osteoporosis,sleeping problem,chronic pain. (EMORY AGUIRRE APRN) Past Surgical History: Other Additional Past Surgical Histo: PARTIAL THYROIDECTOMY (EMORY AGUIRRE APRN) Alcohol Use: None Drug Use: None (EMORY AGUIRRE APRN) Adult General Chief Complaint Chief Complaint: LOWEREXTREMITY INJURY HPI HPI Patient is a 78 year old female who presents to the ED today complaining of 10 out of 10 left low back pain radiating to the left hip that began a month ago after she fell. Patient describes the pain as sharp and constant worse on weight bearing. Denies anything specifically relieving the pain though she states she ran out of hydrocodone. Denies any numbness or tingling to bilateral lower extremities. Denies any loss of bowel bladder function (EMORY AGUIRRE APRN) Review of Systems Review of Systems Constitutional: Denies fever or chills [] GI: Denies abdominal pain, nausea, vomiting, bloody stools or diarrhea [] : Denies dysuria or hematuria [] Musculoskeletal: Reports left low back pain radiating to the left hip into the left lower extremity. Integument: Denies rash or skin lesions [] Neurologic: Denies headache, focal weakness or sensory changes [] All other systems were reviewed and found to be within normal limits, except as documented in this note. (EMORY AGUIRRE APRN) Current Medications Current Medications Current Medications Medications (Trade) Dose Ordered Sig/Juanita Start Time Stop Time Status Last Admin Dose Admin Acetaminophen/ Hydrocodone Bitart (Lortab 5/325) 2 tab 1X ONCE 10/31/18 17:30 10/31/18 17:31 DC 10/31/18 17:26 2 TAB Cyclobenzaprine HCl (Flexeril) 10 mg 1X ONCE 10/31/18 17:30 10/31/18 17:31 DC 10/31/18 17:26 10 MG (VIKTOR MEI MD) Allergies Allergies Allergies Coded Allergies Type Severity Reaction Last Updated Verified Penicillins Allergy Intermediate Rash 06/16/16 Yes ibuprofen Allergy Intermediate rash 05/24/14 Yes (VIKTOR MEI MD) Physical Exam Physical Exam Constitutional: Well developed, well nourished, no acute distress, non-toxic appearance. [] Skin: Warm, dry, no erythema, no rash. [] Back: No tenderness, no CVA tenderness. [] Extremities: No tenderness, no cyanosis, no clubbing, ROM intact, no edema. [] Neurologic: Alert and oriented X 3, normal motor function, normal sensory function, no focal deficits noted. [] Psychologic: Affect normal, judgement normal, mood normal. [] (EMORY AGUIRRE APRN) Current Patient Data Vital Signs Vital Signs Date Time Temp Pulse Resp B/P (MAP) Pulse Ox O2 Delivery O2 Flow Rate FiO2 10/31/18 18:17 14 100 10/31/18 17:15 98.8 87 177/88 (117) Room Air 98.8 (VIKTOR MEI MD) EKG EKG [] (EMORY AGUIRRE APRN) Radiology/Procedures Radiology/Procedures [] (EMORY AGUIRRE APRN) Course & Med Decision Making Course & Med Decision Making Pertinent Labs and Imaging studies reviewed. (See chart for details) This is a 78-year-old. Patient presented to the ED today with left low back pain radiating to the left hip that began a month ago after she fell. No loss of consciousness. Left hip x-rays including pelvis, lumbar spine x-rays and femur x-rays interpreted by Dr. Solorzano are negative for any acute findings. Patient was provided prescription for cyclobenzaprine. Follow-up with PCP in 1-2 weeks. Ice elevation encouraged. Ktracs shows patient received 180 tablets of hydrocodone on 10/05/1918, this is a 1 month supply. (EMORY AGUIRRE APRN) Course & Med Decision Making Staff Physician Addendum: I was working in the ER during the course of this patient's visit. I was available for consultation as needed, but I was not directly involved in the care of this patient. (VIKTOR MEI MD) Dragon Disclaimer Dragon Disclaimer This electronic medical record was generated, in whole or in part, using a voice recognition dictation system. (EMORY AGUIRRE APRN) Departure Departure Impression: Primary Impression: Fall from standing Additional Impression: Sciatica of left side Disposition: HOME, SELF-CARE Condition: STABLE Referrals: MAXIM HERRERA MD (PCP) follow up as soon as you can Patient Instructions: Sciatica with [facility] Additional Instructions: You were evaluated in the emergency room for back pain radiating to the left lower extremity try to ice and elevate the affected area. Take the prescribed medication as needed for pain. Please follow-up with your own doctor as soon as you can. Scripts Cyclobenzaprine Hcl (CYCLOBENZAPRINE HCL) 10 Mg Tablet 1 TAB PO TID, #30 TAB Prov: EMORY AGUIRRE APRN 10/31/18 Problem Qualifiers Primary Impression: Fall from standing Encounter type: initial encounter Qualified Codes: W19.XXXA - Unspecified fall, initial encounter EMORY AGUIRRE APRN Oct 31, 2018 18:32 VIKTOR MEI MD Oct 31, 2018 18:34
--- NOTE | 2018-10-31 18:38 | RAD ---
Exam: Lumbar spine 2 views left hip 2 views left femur 2 views INDICATION: Fall TECHNIQUE: Frontal and lateral views lumbar spine with spot magnification view of the lumbosacral junction. Frontal view of the pelvis with frontal and lateral views of the left hip. Frontal and lateral views of the left femur. Comparisons: None FINDINGS: Pelvis: Bone mineralization is normal. No acute or healed fractures are identified. Soft tissues are unremarkable. Joint spaces are well-maintained. Femur: Bone mineralization is normal. No acute or healed fractures. Soft tissues are unremarkable. Joint spaces are well-maintained. Lumbar spine: Vertebral body heights and alignment are well-maintained. Mild degenerative disc disease greatest at L5-S1. Bilateral facet arthropathy throughout the lumbar spine. Visualized paraspinal soft tissues are unremarkable. IMPRESSION: 1. No acute osseous abnormality of the pelvis 2. No acute osseous abnormality of the left femur 3. Mild spondylotic changes lumbar spine as described above. Electronically signed by: Bj Del Real MD (10/31/2018 6:35 PM) [facility]
== END 2018-10-31 18:38 | disposition home or self-care (01) ==
LOC: ER 17:01
DX: M54.42 Lumbago with sciatica, left side (principal); M25.552 Pain in left hip; G89.29 Other chronic pain; M19.90 Unspecified osteoarthritis, unspecified site; J44.9 Chronic obstructive pulmonary disease, unspecified; I10 Essential (primary) hypertension; E89.0 Postprocedural hypothyroidism; W18.39XA Other fall on same level, initial encounter; Y93.89 Activity, other specified; Y92.89 Other specified places as the place of occurrence of the external cause; Y99.8 Other external cause status
CPT/HCPCS: 72100; 73502; 73552; 99284

== ENCOUNTER 2019-01-02 10:03 | Emergency (ER) | payer OTHER, MEDICAID ==
[~2019-01-02] VITALS: Ht 158.8 cm; Wt 71.2 kg
[~2019-01-02 10:03] MED LIST changes: +CLON-77 PO; -CLON0.5T11 PO; +CYCL10TA2 PO; +LEFL10TA13 PO; -LEFLUNOMIDE20 MG PO
--- NOTE | 2019-01-02 10:42 | PHYS DOC ---
Past Medical History Past Medical History: Arthritis, COPD, Fibromyalgia, Hypertension, Hypothyroid, Other Additional Past Medical Histor: neuropathy,osteoporosis,sleeping problem,chronic pain. (CONSTANTINO MANRIQUEZ APRN) Past Surgical History: Hysterectomy, Other Additional Past Surgical Histo: PARTIAL THYROIDECTOMY (CONSTANTINO MANRIQUEZ APRN) Alcohol Use: None Drug Use: None (CONSTANTINO MANRIQUEZ APRN) Attending Signature I have participated in the care of this patient and I have reviewed and agree with all pertinent clinical information above including history, exam, and recommendations. (TU LEBLANC MD) Adult General Chief Complaint Chief Complaint: LOWER EXT PAIN HPI HPI Patient is a 78 year old female that presents stating that she ran out of her pain pills, weeks ago has been having left calf pain, and left upper leg pain. She states that she was taking the pain pills due to sciatic pain. She is scheduled to see her primary care doctor tomorrow. Rates her pain at this time as 10 out of 10 in severity and sharp. (CONSTANTINO MANRIQUEZ APRN) Review of Systems Review of Systems Constitutional: Denies fever or chills Eyes: Denies change in visual acuity, redness, or eye pain [] HENT: Denies nasal congestion or sore throat [] Respiratory: Denies cough or shortness of breath [] Cardiovascular: No additional information not addressed in HPI [] GI: Denies abdominal pain, nausea, vomiting, bloody stools or diarrhea [] : Denies dysuria or hematuria [] Musculoskeletal: Reports back pain radiating down left leg. Integument: Reports calf pain. Neurologic: Denies headache, focal weakness or sensory changes [] Endocrine: Denies polyuria or polydipsia [] Complete systems were reviewed and found to be within normal limits, except as documented in this note. (CONSTANTINO MANRIQUEZ APRN) Current Medications Current Medications Current Medications Medications (Trade) Dose Ordered Sig/Juanita Start Time Stop Time Status Last Admin Dose Admin Acetaminophen/ Hydrocodone Bitart (Lortab 10/325) 1 tab 1X ONCE 01/02/19 10:45 01/02/19 10:46 DC 01/02/19 11:09 1 TAB (TU LEBLANC MD) Allergies Allergies Allergies Coded Allergies Type Severity Reaction Last Updated Verified Penicillins Allergy Intermediate Rash 06/16/16 Yes ibuprofen Allergy Intermediate rash 05/24/14 Yes (TU LEBLANC MD) Physical Exam Physical Exam Constitutional: Well developed, well nourished, no acute distress, non-toxic appearance. [] HENT: Normocephalic, atraumatic, bilateral external ears normal, oropharynx moist, no oral exudates, nose normal. [] Eyes: PERRLA, EOMI, conjunctiva normal, no discharge. [] Neck: Normal range of motion, no tenderness, supple, no stridor. [] Cardiovascular:Heart rate regular rhythm, no murmur [] Lungs & Thorax: Bilateral breath sounds clear to auscultation [] Abdomen: Bowel sounds normal, soft, no tenderness, no masses, no pulsatile masses. [] Skin: Warm, dry, no erythema, no rash. [] Back:mild tenderness, no CVA tenderness. [] Extremities: mild edema and tenderness to L calf. Neurologic: Alert and oriented X 3, normal motor function, normal sensory fu nction, no focal deficits noted. [] Psychologic: Affect normal, judgement normal, mood normal. [] (CONSTANTINO MANRIQUEZ APRN) Current Patient Data Vital Signs Vital Signs Date Time Temp Pulse Resp B/P (MAP) Pulse Ox O2 Delivery O2 Flow Rate FiO2 01/02/19 11:27 71 18 150/76 (100) 97 Room Air 01/02/19 10:14 98.8 98.8 (TU LEBLANC MD) EKG EKG [] (CONSTANTINO MANRIQUEZ APRN) Radiology/Procedures Radiology/Procedures [][facility] [address] [place] [address] IMAGING REPORT Signed PATIENT: MARLENE DOMINGUEZ ACCOUNT: [id number] : 1940 LOCATION: ER AGE: 78 SEX: F EXAM STATUS: REG ER ORD. PHYSICIAN: CONSTANTINO MANRIQUEZ APRN REASON: calf tenderness, hx of blood clots PROCEDURE: VENOUS LOWER EXTREMITY LEFT Exam: VENOUS LOWER EXTREMITY LEFT Indication: Calf tenderness, history of blood clots Technique: Color-flow and pulsed wave duplex ultrasound with compression of venous structures of the left lower extremity. Comparison: None Available. Findings: Duplex ultrasound with compression of the deep venous structures of the left lower extremity from the common femoral vein through the popliteal vein is negative for DVT. The posterior tibial and peroneal veins are segmentally visualized and patent where seen. Normal venous waveforms and augmentation are noted throughout. Impression: No evidence for DVT in the left lower extremity. Electronically signed by: Alvaro Ridley MD (01/02/2019 11:07 AM) [id number] DICTATED and SIGNED BY: ALVARO RIDLEY MD DATE: 01/02/191106 (CONSTANTINO MANRIQUEZ APRN) Course & Med Decision Making Course & Med Decision Making Pertinent Labs and Imaging studies reviewed. (See chart for details) Will get Ultrasound and give supportive care. Ran a [employer] report on patient and patient last had a narcotic script filled on 12/06 for 30 days supply of [place] 10-325. Ultrasound is negative. Will d/c home to follow up with primary care. (CONSTANTINO MANRIQUEZ APRN) Dragon Disclaimer Dragon Disclaimer This electronic medical record was generated, in whole or in part, using a voice recognition dictation system. (CONSTANTINO MANRIQUEZ APRN) Departure Departure Impression: Primary Impression: Pain of left calf Additional Impression: Sciatica of left side Disposition: HOME, SELF-CARE Condition: STABLE Referrals: NATHAN PIEDRA MD (PCP) Patient Instructions: Sciatica Additional Instructions: Thank you for visiting [facility]. We appreciate you trusting us with your care. If any additional problems come up don't hesitate to return to visit us. Please follow up with your primary care provider so they can plan additional care if needed and know about the problem that you had. If symptoms worsen come back to the Emergency Department. Any concerning symptoms that start such as chest pain, shortness of air, weakness or numbness on one side of the body, running high fevers or any other concerning symptoms return to the ER. Problem Qualifiers CONSTANTINO MANRIQUEZ APRN Jan 02, 2019 10:42 TU LEBLANC MD Jan 05, 2019 06:09
[2019-01-02] MEDS ORDERED: HYDROcodone/APAP 10/325 1 TAB TABLET PO ONE (10:45)
--- NOTE | 2019-01-02 11:10 | RAD ---
Exam: VENOUS LOWER EXTREMITY LEFT Indication: Calf tenderness, history of blood clots Technique: Color-flow and pulsed wave duplex ultrasound with compression of venous structures of the left lower extremity. Comparison: None Available. Findings: Duplex ultrasound with compression of the deep venous structures of the left lower extremity from the common femoral vein through the popliteal vein is negative for DVT. The posterior tibial and peroneal veins are segmentally visualized and patent where seen. Normal venous waveforms and augmentation are noted throughout. Impression: No evidence for DVT in the left lower extremity. Electronically signed by: Nathaniel Ridley MD (01/02/2019 11:07 AM) [id number]
[2019-01-02 11:27] VITALS: BP 150/76
== END 2019-01-02 11:27 | disposition home or self-care (01) ==
LOC: ER 10:03
DX: M54.32 Sciatica, left side (principal); M79.662 Pain in left lower leg; M54.89 Other dorsalgia; E03.9 Hypothyroidism, unspecified; J44.9 Chronic obstructive pulmonary disease, unspecified; G89.29 Other chronic pain; I10 Essential (primary) hypertension; Z90.710 Acquired absence of both cervix and uterus; Z88.0 Allergy status to penicillin; Z88.8 Allergy status to other drugs, medicaments and biological substances
CPT/HCPCS: 93971; 99284-25

== ENCOUNTER 2019-07-31 21:13 | Emergency (ER) | payer OTHER, MEDICAID ==
[~2019-07-31] VITALS: Ht 157.5 cm; Wt 66.4 kg
[2019-07-31 21:47] VITALS: BP 162/77
--- NOTE | 2019-07-31 22:03 | PHYS DOC ---
Past Medical History Past Medical History: Arthritis, COPD, Fibromyalgia, Hypertension, Hypothyroid, Other Additional Past Medical Histor: neuropathy,osteoporosis,sleeping problem,chronic pain. Past Surgical History: Hysterectomy, Other Additional Past Surgical Histo: PARTIAL THYROIDECTOMY Smoking Status: Former Smoker Alcohol Use: None Drug Use: None General Adult EDM: Chief Complaint: FOREIGNBODY EAR HPI: HPI: 78-year-old female who presents with left ear foreign body. The patient was attempting to place her hearing aid into her left ear, but mistakenly just placed a button battery. Has been present for a couple hours now. No other acute medical complaints. Review of Systems: Review of Systems: ENT: Reports left ear foreign body, otalgia. Remainder of systems reviewed and negative unless otherwise specified. Heart Score: Risk Factors: Risk Factors: DM, Current or recent (<one month) smoker, HTN, HLP, family history of CAD, obesity. Risk Scores: Score 0 - 3: 2.5% MACE over next 6 weeks - Discharge Home Score 4 - 6: 20.3% MACE over next 6 weeks - Admit for Clinical Observation Score 7 - 10: 72.7% MACE over next 6 weeks - Early Invasive Strategies Allergies: Allergies: Allergies Coded Allergies Type Severity Reaction Last Updated Verified Penicillins Allergy Intermediate Rash 06/16/16 Yes ibuprofen Allergy Intermediate rash 05/24/14 Yes morphine Adverse Reaction Intermediate Itching 03/20/19 Yes Physical Exam: PE: Gen: NAD. Head: NC/AT. Eyes: No scleral icterus. No conjunctival injection. ENT: MMM. Posterior OP clear. Left ear button battery present, removed with alligator forceps. Tympanic membranes clear without rupture. Mild irritation of the left external auditory canal without laceration. CV: RRR. Resp: CTAB. MSK: No peripheral cyanosis. Neuro: Awake and alert. Skin. Warm. Dry. Psych: Appropriate mood & affect. EKG: EKG: [] Radiology/Procedures: Radiology/Procedures: [] Course & Med Decision Making: Course & Med Decision Making In summary, 78-year-old female who presents with left ear foreign body, removed without difficulty with no injury to the external auditory canal or tympanic membrane. Will be discharged home. Kayla Disclaimer: Kayla Disclaimer: This electronic medical record was generated, in whole or in part, using a voice recognition dictation system. Departure Departure Impression: Primary Impression: Ear foreign body Disposition: HOME, SELF-CARE Condition: STABLE Referrals: NATHAN PIEDRA MD (PCP) Patient Instructions: Ear Foreign Body, [id number] IRISH DAWSON DO July 31, 2019 22:03
== END 2019-07-31 22:35 | disposition home or self-care (01) ==
LOC: ER 21:13
DX: T16.2XXA Foreign body in left ear, initial encounter (principal); M19.90 Unspecified osteoarthritis, unspecified site; J44.9 Chronic obstructive pulmonary disease, unspecified; M79.7 Fibromyalgia; I10 Essential (primary) hypertension; E03.9 Hypothyroidism, unspecified; G62.9 Polyneuropathy, unspecified; G89.29 Other chronic pain; Z90.710 Acquired absence of both cervix and uterus; Z90.89 Acquired absence of other organs; Z88.0 Allergy status to penicillin; Z88.6 Allergy status to analgesic agent; Z87.891 Personal history of nicotine dependence; X58.XXXA Exposure to other specified factors, initial encounter; Y93.89 Activity, other specified; Y92.89 Other specified places as the place of occurrence of the external cause; Y99.8 Other external cause status
CPT/HCPCS: 69200; 99284

== ENCOUNTER 2020-09-01 19:53 | Emergency (ER) | payer OTHER, MEDICAID ==
[~2020-09-01] VITALS: Ht 160 cm; Wt 72.7 kg
[~2020-09-01 19:53] MED LIST changes: +AMLO-187 PO; -AMLO10TA8 PO; +BUPR150T21 PO; -BUPR150T6 PO
[2020-09-01 20:00] VITALS: BP 158/82
--- NOTE | 2020-09-01 21:21 | RAD ---
Supine and upright abdomen. HISTORY: Constipation Portable supine and upright views were taken of the abdomen. There is elevation left diaphragm. Visua lized lung bases are otherwise clear. There is no obvious free air. There is moderate stool throughou t the colon. There is no small bowel obstruction. There is degenerative and hypertrophic change in th e lumbar spine. IMPRESSION: 1. Moderate stool throughout the colon and rectum. 2. No bowel obstruction. 3. No other acute finding. 4. Elevated left diaphragm. Electronically signed by: Newtno Mcclellan MD (09/01/2020 9:18 PM) [facility]
[2020-09-01] MEDS ORDERED: BISACODYL 5 MG TABLET.DR. PO ONE (22:00)
[2020-09-01] MEDS ORDERED: SODIUM PHOSPHATES 19/7GM 133 ML ENEMA. PR ONE (22:00)
[2020-09-01] MEDS: MAGNESIUM CITRATE 296 ML SOLUTION. PO ONE ×2 (22:27→22:53)
[2020-09-01] MEDS ORDERED: MAGN296S68 PO ×2 (22:41→23:17)
[2020-09-01] MEDS ORDERED: POLY119P4 PO ×2 (22:41→23:17)
[2020-09-01] MEDS ORDERED: NA P133E2 RC ×2 (22:41→23:17)
[2020-09-01] MEDS ORDERED: DOCU100C28 PO ×2 (22:41→23:17)
--- NOTE | 2020-09-01 22:42 | PHYS DOC ---
Past Medical History Past Medical History: Arthritis, Constipation, COPD, Fibromyalgia, Hypert ension, Hypothyroid, Other Additional Past Medical Histor: neuropathy,osteoporosis,sleeping problem,chroni c pain. (EMORY AGUIRRE RESEARCH ENVIRONMENTAL SCIENTIST) Past Surgical History: Hysterectomy, Other Additional Past Surgical Histo: PARTIAL THYROIDECTOMY (EMORY AGUIRRE RESEARCH ENVIRONMENTAL SCIENTIST) Smoking Status: Never Smoker Alcohol Use: None Drug Use: None (EMORY AGUIRRE RESEARCH ENVIRONMENTAL SCIENTIST) General Adult EDM: Chief Complaint: CONTISPATION HPI: HPI: Patient is a 80 year old female with a history of COPD on oxygen, hypertension, anxiety, constipation, among other illnesses who presents to the ED today complaining of constipation for 2 days. Patient states she is on hydrocodone for chronic pain. She states she has not tried any [id number] remedies to help with her constipation. She states she does not want to feel the pain of pushing her bowel movement either. Denies any nausea, vomiting. Denies any abdominal pain. (EMORY AGUIRRE RESEARCH ENVIRONMENTAL SCIENTIST) Review of Systems: Review of Systems: Constitutional: Denies fever or chills. [] Eyes: Denies change in visual acuity. [] HENT: Denies nasal congestion or sore throat. [] Respiratory: Denies cough or shortness of breath. [] Cardiovascular: Denies chest pain or edema. [] GI: Reports constipation. Denies abdominal pain, nausea, vomiting, bloody stools or diarrhea. [] : Denies dysuria. [] Musculoskeletal: Denies back pain or joint pain. [] Integument: Denies rash. [] Neurologic: Denies headache, focal weakness or sensory changes. [] Psychiatric: Denies depression or anxiety. [] (EMORY AGUIRRE RESEARCH ENVIRONMENTAL SCIENTIST) Heart Score: C/O Chest Pain: N/A Risk Factors: Risk Factors: DM, Current or recent (<one month) smoker, HTN, HLP, family history of CAD, obesity. Risk Scores: Score 0 - 3: 2.5% MACE over next 6 weeks - Discharge Home Score 4 - 6: 20.3% MACE over next 6 weeks - Admit for Clinical Observation Score 7 - 10: 72.7% MACE over next 6 weeks - Early Invasive Strategies (EMORY AGUIRRE RESEARCH ENVIRONMENTAL SCIENTIST) Current Medications: Current Medications Medications (Trade) Dose Ordered Sig/Juanita Start Time Stop Time Status Last Admin Dose Admin Bisacodyl (Dulcolax Tab) 10 mg 1X ONCE 09/01/20 22:00 09/01/20 22:01 DC 09/01/20 22:27 10 MG Magnesium Citrate (Citroma) 296 ml 1X ONCE 09/01/20 22:00 09/01/20 22:01 DC Sodium Monofluorophosphate (Fleet Adult) 133 ml 1X ONCE 09/01/20 22:00 09/01/20 22:01 DC 09/01/20 22:27 133 ML (EMORY AGUIRRE M RESEARCH ENVIRONMENTAL SCIENTIST) Allergies: Allergies: Allergies Coded Allergies Type Severity Reaction Last Updated Verified Penicillins Allergy Intermediate Rash 06/16/16 Yes ibuprofen Allergy Intermediate rash 05/24/14 Yes morphine Adverse Reaction Intermediate Itching 03/20/19 Yes (THANHA,EMORY M RESEARCH ENVIRONMENTAL SCIENTIST) Physical Exam: PE: Constitutional: Well developed, well nourished, no acute distress, non-toxic ramy earance. [] HENT: Normocephalic, atraumatic, bilateral external ears normal, oropharynx moist, no oral exudates, nose normal. [] Eyes: PERRLA, EOMI, conjunctiva normal, no discharge. [] Neck: Normal range of motion, no tenderness, supple, no stridor. [] Cardiovascular:Heart rate regular rhythm, no murmur [] Lungs & Thorax: Diminished breath sounds, on oxygen Abdomen: Bowel sounds normal, soft, no tenderness, no masses, no pulsatile masses. [] Rectal exam, external rectum noted for hemorrhoids, palpable stool noted on the lower end of the rectum which was removed by me successfully. Skin: Warm, dry, no erythema, no rash. [] Back: No tenderness, no CVA tenderness. [] Extremities: No tenderness, no cyanosis, no clubbing, ROM intact, no edema. [] Neurologic: Alert and oriented X 3, normal motor function, normal sensory function, no focal deficits noted. [] Psychologic: Affect normal, judgement normal, mood normal. [] (DREADUNGA,EMORY M RESEARCH ENVIRONMENTAL SCIENTIST) Current Patient Data: Vital Signs: Vital Signs Date Time Temp Pulse Resp B/P (MAP) Pulse Ox O2 Delivery O2 Flow Rate FiO2 09/01/20 20:00 98.0 92 18 158/82 (107) 98 98.0 (MUTUNGA,EMORY M RESEARCH ENVIRONMENTAL SCIENTIST) EKG: EKG: [] (EMORY AGUIRRE APRN) Radiology/Procedures: Radiology/Procedures: []PROCEDURE: ABDOMEN SUPINE & UPRIGHT Supine and upright abdomen. HISTORY: Constipation Portable supine and upright views were taken of the abdomen. There is elevation left diaphragm. Visualized lung bases are otherwise clear. There is no obvious free air. There is moderate stool throughout the colon. There is no small bowel obstruction. There is degenerative and hypertrophic change in the lumbar spine. IMPRESSION: 1. Moderate stool throughout the colon and rectum. 2. No bowel obstruction. 3. No other acute finding. 4. Elevated left diaphragm. Electronically signed by: Newton Mcclellan MD (09/01/2020 9:18 PM) [facility] DICTATED and SIGNED BY: NEWTON MCCLELLAN MD DATE: 09/01/[id number] 0 (EMORY AGUIRRE APRN) Course & Med Decision Making: Course & Med Decision Making Pertinent Labs and Imaging studies reviewed. (See chart for details) This is a 80-year-old female patient presented to the ED today complaining of constipation for 2 days. Patient is on hydrocodone and states she did not try anything to help with her constipation. I did a rectal exam and removed quite a bit of stool from the lower rectum region. X-ray of the abdomen noted for moderate amount of stool in the rectum. Patient was given Dulcolax and mag citrate in the ED, Fleet enema was performed. Patient herself is not making any effort to have a bowel movement. Talk to patient's son about prevention as well as management of constipation. Discharge to home (EMORY AGUIRRE APRN) Course & Med Decision Making Patients Care and treatment plan provided by ER Nurse Practitioner. I was available for consult. Patient's chart reviewed. (LUIS JETER DO) Mikeon Disclaimer: Dragon Disclaimer: This electronic medical record was generated, in whole or in part, using a voice recognition dictation system. (EMORY AGUIRRE APRN) Departure Departure Impression: Primary Impression: Constipation Qualified Codes: K59.03 - Drug induced constipation Disposition: HOME / SELF CARE / HOMELESS Condition: STABLE Referrals: NATHAN PIEDRA MD (PCP) Follow-up in the course of this week Patient Instructions: Constipation, Adult Additional Instructions: You were seen for constipation, you need to increase your dietary fiber intake as well as water intake. Take MiraLAX every day as well as docusate sodium. Anytime you are constipated take magnesium citrate or milk of magnesium. You can also do an enema whenever you are constipated Scripts Na Phos,M-B/Na Phos,Di-Ba (FLEET ENEMA) 133 Ml Enema 1 EACH RC ONCE, #1 BOTTLE Prov: EMORY AGUIRRE APRN 09/01/20 Docusate Sodium (DOCUSATE SODIUM) 100 Mg Capsule 1 CAP PO BID for constipation for 15 Days, #30 CAP 0 Refills Prov: EMORY AGUIRRE APRN 09/01/20 Polyethylene Glycol 3350 (MIRALAX) 119 Gm Powder 17 GM PO DAILY for constipation, #527 GM 0 Refills dissolve in water Prov: EMORY AGUIRRE APRN 09/01/20 Magnesium Citrate (MAGNESIUM CITRATE) 296 Ml Solution 296 ML PO ONCE, #296 ML Prov: EMORY AGUIRRE APRN 09/01/20 EMORY AGUIRRE APRN Sep 01, 2020 22:42 LUIS JETER DO Sep 02, 2020 05:07
== END 2020-09-01 23:15 | disposition home or self-care (01) ==
LOC: ER 19:53
DX: K59.03 Drug induced constipation (principal); J44.9 Chronic obstructive pulmonary disease, unspecified; I10 Essential (primary) hypertension; E03.9 Hypothyroidism, unspecified; Z88.0 Allergy status to penicillin; Z88.5 Allergy status to narcotic agent; Z88.8 Allergy status to other drugs, medicaments and biological substances
CPT/HCPCS: 74021; 99284

== ENCOUNTER 2021-02-08 18:40 | Inpatient (IN) | payer OTHER, MEDICAID ==
[~2021-02-08] VITALS: Ht 162.6 cm; Wt 68.1 kg
[~2021-02-08 18:40] MED LIST changes: +ASPI-886 PO; +ATOR10TA60 PO; -BENA40TA3; -BENA40TA3 PO; +BENA40TA74; +BENA40TA74 PO; +CYCL10TA19 PO; -CYCL10TA2 PO; +DOCU100C28 PO; +DONE5TAB56 PO; +MAGN296S68 PO; +NA P133E2 RC; +POLY119P4 PO; +TIZA-75; +TIZA-75 PO; -TIZA4TAB2; -TIZA4TAB2 PO
[2021-02-08 19:09] LABS: BASO # 0.1 x10^3/uL (0.0-0.2); BASO % 1 % (0-3); EOS # 0.1 x10^3/uL (0.0-0.7); EOS % 2 % (0-3); HEMATOCRIT 33.1 % (36.0-47.0); HEMOGLOBIN 10.9 g/dL (12.0-15.5); LYMPH # 1.2 x10^3/uL (1.0-4.8); LYMPH % 16 % (24-48); MEAN CORPUSCULAR HEMOGLOBIN 28 pg (25-35); MEAN CORPUSCULAR HGB CONC 33 g/dL (31-37); MEAN CORPUSCULAR VOLUME 84 fL (79-100); MONO # 0.8 x10^3/uL (0.0-1.1); MONO % 11 % (0-9); NEUT # 5.3 x10^3/uL (1.8-7.7); NEUT % 71 % (31-73); PLATELET COUNT 435 x10^3/uL (140-400); RED BLOOD COUNT 3.92 x10^6/uL (3.50-5.40); RED CELL DISTRIBUTION WIDTH 18.6 % (11.5-14.5); WHITE BLOOD COUNT 7.5 x10^3/uL (4.0-11.0)
--- NOTE | 2021-02-08 19:12 | PHYS DOC ---
Past Medical History Past Medical History: Arthritis, Constipation, COPD, Fibromyalgia, Hypert ension, Hypothyroid, Other Additional Past Medical Histor: neuropathy,osteoporosis,sleeping problem,chroni c pain, Past Surgical History: Hysterectomy, Other Additional Past Surgical Histo: PARTIAL THYROIDECTOMY Smoking Status: Former Smoker Alcohol Use: None Drug Use: None General Adult EDM: Chief Complaint: ALTERED MENTAL STATUS HPI: HPI: Patient is a 80 year old female presents for evaluation due to altered mental status. Patient has past medical history of dementia. She lives at home alone. Son found patient in bed this afternoon. He states patient seems more confused than normal. On exam patient follows commands. States her name but unable to provide place or time. Review of Systems: Review of Systems: Unable to obtain history due to altered mental status Heart Score: C/O Chest Pain: N/A Risk Factors: Risk Factors: DM, Current or recent (<one month) smoker, HTN, HLP, family history of CAD, obesity. Risk Scores: Score 0 - 3: 2.5% MACE over next 6 weeks - Discharge Home Score 4 - 6: 20.3% MACE over next 6 weeks - Admit for Clinical Observation Score 7 - 10: 72.7% MACE over next 6 weeks - Early Invasive Strategies Current Medications: Current Medications Medications (Trade) Dose Ordered Sig/Juanita Start Time Stop Time Status Last Admin Dose Admin Sodium Chloride 1,000 ml @ 1,000 mls/hr 1X ONCE 02/08/21 19:15 02/08/21 20:14 Allergies: Allergies: Allergies Coded Allergies Type Severity Reaction Last Updated Verified Penicillins Allergy Intermediate Rash 06/16/16 Yes ibuprofen Allergy Intermediate rash 05/24/14 Yes morphine Adverse Reaction Intermediate Itching 03/20/19 Yes Physical Exam: PE: General: alert, no acute distress. Skin: warm, dry and intact, no erythema, no rash. HENT: bilateral external ears normal, oropharynx moist, nose normal. Head:: Normocephalic, atraumatic. Neck: Trachea midline. Eyes: EOMI, Normal conjunctiva, No drainage CARDIOVASCULAR: Regular rate and rhythm RESPIRATORY: No respiratory distress Back: Full range of motion. MUSCULOSKELETAL: Full range of motion of bilateral upper and lower extremities. GASTROINTESTINAL: Abdomen soft without rebound or guarding. NEUROLOGICAL: Alert nonverbal but follows commands Current Patient Data: Vital Signs: Vital Signs Date Time Temp Pulse Resp B/P (MAP) Pulse Ox O2 Delivery O2 Flow Rate FiO2 02/08/21 18:40 97.5 88 22 174/83 (113) 100 Nasal Cannula 2.0 97.5 EKG: EKG: [] Radiology/Procedures: Radiology/Procedures: [] Course & Med Decision Making: Course & Med Decision Making Pertinent Labs and Imaging studies reviewed. (See chart for details) Dragon Disclaimer: Dragon Disclaimer: This electronic medical record was generated, in whole or in part, using a voice recognition dictation system. Departure Departure Impression: Primary Impression: AMS (altered mental status) Additional Impression: Dementia Disposition: ADMITTED INPATIENT Admitting Physician: Nathan Jensen Referrals: NATHAN JENSEN MD (PCP) LUIS JETER DO Feb 08, 2021 19:11
[2021-02-08] MEDS ORDERED: IV NORMAL SALINE 1000ML BAG 1,000 ML IV ONE (19:15)
[2021-02-08 19:18] LABS: CALCIUM 10.1 mg/dL (8.5-10.1); CREATININE 0.5 mg/dL (0.6-1.0); GFR 143.6; POTASSIUM 4.2 mmol/L (3.5-5.1)
[2021-02-08 19:24] LABS: ALBUMIN 3.4 g/dL (3.4-5.0); ALBUMIN/GLOBULIN RATIO 0.7 (1.0-1.7); TOTAL BILIRUBIN 0.5 mg/dL (0.2-1.0); TOTAL PROTEIN 8.3 g/dL (6.4-8.2)
[2021-02-08 21:52] LABS: BILIRUBIN,URINE MODERATE (NEG); CLARITY,URINE CLEAR; COLOR,URINE YELLOW; NITRITE,URINE NEGATIVE (NEG); PROTEIN,URINE 100 mg/dL (NEG-TRACE)
[2021-02-08 22:00] LABS: BACTERIA,URINE 0 /HPF (0-FEW); RBC,URINE 0 /HPF (0-2); WBC,URINE 0 /HPF (0-4)
--- NOTE | 2021-02-08 22:18 | RAD ---
Exam: CT head INDICATION: Altered mental status TECHNIQUE: Sequential axial images through the head were obtained without the administration of IV co ntrast. Exposure: One or more of the following in the visualized dose reduction techniques were utilized for this examination: 1. Automated exposure control 2. Adjustment of the MA and/or KV according to patient size 3. Use of iterative of reconstructive technique Comparisons: 09/23/2020 FINDINGS: There is a mildly hyperintense rounded mass at the midline anterior cranial fossa measuring approxima tely 3.8 x 3.0 cm. This is stable from prior exams. There is no midline shift or sulcal effacement. No acute vascular territory infarction is identified. Bonilla-white distinction is preserved. Patchy evidence in the periventricular white matter, similar to prior study. The ventricular system i s within normal limits without compression hydrocephalus. The basal cisterns are well maintained. The visualized portions of the paranasal sinuses and mastoid air cells are well-pneumatized. No acute fractures. IMPRESSION: Chronic changes without acute intracranial abnormality. Electronically signed by: Bj Del Real MD (02/08/2021 10:16 PM) [facility]
[2021-02-09] VITALS (7 sets, daily range): BP systolic 108–177; BP diastolic 57–94
--- NOTE | 2021-02-09 07:34 | NUR ---
Pt admitted to unit @ 1am. Called registration that admitting physician is Dr Jensen. Pt with confusion. Limited admission information from patient. Most information was from report and previous admission. Patient resistive at times to care.
[2021-02-09 08:26] LABS: ALBUMIN/GLOBULIN RATIO 0.8 (1.0-1.7); CALCIUM 9.4 mg/dL (8.5-10.1); CREATININE 0.4 mg/dL (0.6-1.0); GFR 185.8; POTASSIUM 3.6 mmol/L (3.5-5.1); TOTAL BILIRUBIN 0.4 mg/dL (0.2-1.0); TOTAL PROTEIN 6.7 g/dL (6.4-8.2)
[2021-02-09 08:28] LABS: BASO % 1 % (0-3); EOS # 0.2 x10^3/uL (0.0-0.7); EOS % 3 % (0-3); HEMATOCRIT 30.4 % (36.0-47.0); HEMOGLOBIN 9.7 g/dL (12.0-15.5); LYMPH # 1.1 x10^3/uL (1.0-4.8); LYMPH % 18 % (24-48); MEAN CORPUSCULAR HEMOGLOBIN 27 pg (25-35); MEAN CORPUSCULAR HGB CONC 32 g/dL (31-37); MEAN CORPUSCULAR VOLUME 86 fL (79-100); MONO # 0.7 x10^3/uL (0.0-1.1); MONO % 10 % (0-9); NEUT # 4.3 x10^3/uL (1.8-7.7); NEUT % 68 % (31-73); PLATELET COUNT 430 x10^3/uL (140-400); RED BLOOD COUNT 3.54 x10^6/uL (3.50-5.40); RED CELL DISTRIBUTION WIDTH 18.7 % (11.5-14.5); WHITE BLOOD COUNT 6.4 x10^3/uL (4.0-11.0)
--- NOTE | 2021-02-09 08:44 | PDOC ---
PROGRESS NOTES Date of Service: DATE: 02/09/21 TIME: 08:44 Objective Objective Vital Signs Date Time Temp Pulse Resp B/P (MAP) Pulse Ox O2 Delivery O2 Flow Rate FiO2 02/09/21 08:00 Nasal Cannula 2.0 02/09/21 03:53 97.5 96 18 165/80 (108) 98 97.5 Physical Exam MUSCULOSKELETAL: Osteoarthritic changes both hands Diagnosis Problem List Problems Medical Problems: (1) Dementia Status: Acute Assessment Assessment Problems Medical Problems: (1) Dementia Status: Acute Plan Plan of Care Problems Medical Problems: (1) Dementia Status: Acute Comment Review of Relevant I have reviewed the following items violeta (where applicable) has been applied. Labs Laboratory Tests Test 02/08/21 18:59 02/08/21 19:15 02/08/21 21:45 02/09/21 07:30 White Blood Count 7.5 x10^3/uL (4.0-11.0) 6.4 x10^3/uL (4.0-11.0) Red Blood Count 3.92 x10^6/uL (3.50-5.40) 3.54 x10^6/uL (3.50-5.40) Hemoglobin 10.9 g/dL (12.0-15.5) 9.7 g/dL (12.0-15.5) Hematocrit 33.1 % (36.0-47.0) 30.4 % (36.0-47.0) Mean Corpuscular Volume 84 fL (79-100) 86 fL (79-100) Mean Corpuscular Hemoglobin 28 pg (25-35) 27 pg (25-35) Mean Corpuscular Hemoglobin Concent 33 g/dL (31-37) 32 g/dL (31-37) Red Cell Distribution Width 18.6 % (11.5-14.5) 18.7 % (11.5-14.5) Platelet Count 435 x10^3/uL (140-400) 430 x10^3/uL (140-400) Neutrophils (%) (Auto) 71 % (31-73) 68 % (31-73) Lymphocytes (%) (Auto) 16 % (24-48) 18 % (24-48) Monocytes (%) (Auto) 11 % (0-9) 10 % (0-9) Eosinophils (%) (Auto) 2 % (0-3) 3 % (0-3) Basophils (%) (Auto) 1 % (0-3) 1 % (0-3) Neutrophils # (Auto) 5.3 x10^3/uL (1.8-7.7) 4.3 x10^3/uL (1.8-7.7) Lymphocytes # (Auto) 1.2 x10^3/uL (1.0-4.8) 1.1 x10^3/uL (1.0-4.8) Monocytes # (Auto) 0.8 x10^3/uL (0.0-1.1) 0.7 x10^3/uL (0.0-1.1) Eosinophils # (Auto) 0.1 x10^3/uL (0.0-0.7) 0.2 x10^3/uL (0.0-0.7) Basophils # (Auto) 0.1 x10^3/uL (0.0-0.2) 0.0 x10^3/uL (0.0-0.2) Sodium Level 142 mmol/L (136-145) 146 mmol/L (136-145) Potassium Level 4.2 mmol/L (3.5-5.1) 3.6 mmol/L (3.5-5.1) Chloride Level 99 mmol/L (98-107) 103 mmol/L (98-107) Carbon Dioxide Level 29 mmol/L (21-32) 30 mmol/L (21-32) Anion Gap 14 (6-14) 13 (6-14) Blood Urea Nitrogen 18 mg/dL (7-20) 14 mg/dL (7-20) Creatinine 0.5 mg/dL (0.6-1.0) 0.4 mg/dL (0.6-1.0) Estimated GFR (Cockcroft-Gault) 143.6 185.8 BUN/Creatinine Ratio 36 (6-20) 35 (6-20) Glucose Level 90 mg/dL (70-99) 82 mg/dL (70-99) Calcium Level 10.1 mg/dL (8.5-10.1) 9.4 mg/dL (8.5-10.1) Total Bilirubin 0.5 mg/dL (0.2-1.0) 0.4 mg/dL (0.2-1.0) Aspartate Amino Transf (AST/SGOT) 31 U/L (15-37) 17 U/L (15-37) Alanine Aminotransferase (ALT/SGPT) 15 U/L (14-59) 12 U/L (14-59) Alkaline Phosphatase 93 U/L (46-116) 86 U/L (46-116) Creatine Kinase 89 U/L (26-192) Total Protein 8.3 g/dL (6.4-8.2) 6.7 g/dL (6.4-8.2) Albumin 3.4 g/dL (3.4-5.0) 3.0 g/dL (3.4-5.0) Albumin/Globulin Ratio 0.7 (1.0-1.7) 0.8 (1.0-1.7) SARS-CoV-2 Antigen (Rapid) Negative (NEGATIVE) Urine Collection Type U cath Urine Color Yellow Urine Clarity Clear Urine pH 6.0 (<5.0-8.0) Urine Specific Jack 1.025 (1.000-1.030) Urine Protein 100 mg/dL (NEG-TRACE) Urine Glucose (UA) Negative mg/dL (NEG) Urine Ketones (Stick) >=80 mg/dL (NEG) Urine Blood Negative (NEG) Urine Nitrite Negative (NEG) Urine Bilirubin Moderate (NEG) Urine Urobilinogen Dipstick 1.0 mg/dL (0.2 mg/dL) Urine Leukocyte Esterase Negative (NEG) Urine RBC 0 /HPF (0-2) Urine WBC 0 /HPF (0-4) Urine Squamous Epithelial Cells Few /LPF Urine Bacteria 0 /HPF (0-FEW) Urine Mucus Mod /LPF Medications Current Medications Info (FLU VACCINE SCREEN per RX) 1 each 1X ONCE MC ; Start 02/09/21 at 09:00; Stop 02/09/21 at 09:01 Lorazepam (Ativan Inj) 1 mg 1X ONCE IVP Last administered on 02/08/21at 21:35; Start 02/08/21 at 21:00; Stop 02/08/21 at 21:01; Status DC Sodium Chloride 1,000 ml @ 1,000 mls/hr 1X ONCE IV Last administered on 02/08/21at 19:22; Start 02/08/21 at 19:15; Stop 02/08/21 at 20:14; Status DC Vitals/I & O Vital Sign - Last 24 Hours 02/08/21 02/08/21 02/08/21 02/08/21 18:40 19:01 19:16 19:31 Temp 97.5 97.5 Pulse 88 84 90 86 Resp 22 24 31 30 B/P (MAP) 174/83 (113) 185/85 (118) 175/67 (103) 186/81 (116) Pulse Ox 100 100 100 100 O2 Delivery Nasal Cannula Nasal Cannula Nasal Cannula Nasal Cannula O2 Flow Rate 2.0 2.0 2.0 2.0 02/08/21 02/08/21 02/08/21 02/08/21 20:01 21:15 21:34 22:05 Pulse 78 80 78 86 Resp 24 15 24 24 B/P (MAP) 190/90 (123) 202/91 (128) 180/84 (116) 175/77 (109) Pulse Ox 100 100 97 97 O2 Delivery Nasal Cannula Nasal Cannula Nasal Cannula Nasal Cannula O2 Flow Rate 2.0 2.0 2.0 2.0 02/08/21 02/09/21 02/09/21 02/09/21 22:59 01:00 02:46 03:53 Temp 97.8 97.5 97.8 97.5 Pulse 86 90 96 Resp 18 17 18 B/P (MAP) 160/87 (111) 177/87 (117) 165/80 (108) Pulse Ox 99 100 98 O2 Delivery Nasal Cannula Nasal Cannula Nasal Cannula Nasal Cannula O2 Flow Rate 2.0 2.0 2.0 2.0 02/09/21 08:00 O2 Delivery Nasal Cannula O2 Flow Rate 2.0 Justifications for Admission Other Justification NATHAN PIEDRA MD Feb 09, 2021 08:44
[2021-02-09] MEDS ORDERED: ALBUTEROL SULFATE 2.5 MG/3 ML NEBU. INH PRN (08:45)
[2021-02-09] MEDS ORDERED: NON FORMULARY ITEM (Budesonide/Formoterol Fumarate (Symbicort 160-4.5 Mcg Inhaler) 2 PUFF) IH SCH (09:00)
[2021-02-09] MEDS ORDERED: INFLUENZA VAX SCREEN BY RX. MC ONE (09:00)
[2021-02-09] MEDS: POLYETHYLENE GLYCOL 3350 17 GM PACKET. PO SCH (09:45)
[2021-02-09] MEDS: LISINOPRIL 20 MG TABLET PO SCH (09:46)
[2021-02-09] MEDS: buPROPion XL 150 MG TAB.ER.24H. PO SCH (09:46)
[2021-02-09] MEDS: clonazePAM 0.5 MG TABLET PO SCH ×2 (09:46→21:04)
[2021-02-09] MEDS: DONEPEZIL HCL 5 MG TABLET. PO SCH (09:46)
[2021-02-09] MEDS: GABAPENTIN 300 MG CAPSULE. PO SCH ×3 (09:46→21:04)
[2021-02-09] MEDS: ASPIRIN ENTERIC COATED 81 MG TABLET.DR. PO SCH (09:46)
[2021-02-09] MEDS: DOCUSATE SODIUM 100 MG CAPSULE. PO SCH ×2 (09:46→21:04)
[2021-02-09] MEDS: DULoxetine HCL 30 MG CAPSULE.DR PO SCH (09:46)
[2021-02-09] MEDS: predniSONE 5 MG TABLET PO SCH (09:47)
--- NOTE | 2021-02-09 11:11 | PDOC2 ---
CONSULT Date of Consult Date of Consult DATE: 02/09/21 TIME: 10:58 Reason for Consult Reason for Consult: Cognitive evaluation for assessment of dementia progression Referring Physician Referring Physician: Dr. Jensen, Internal Medicine Identification/Chief Complaint Chief Complaint Altered cognition Source Source: Chart review History of Present Illness Reason for Visit: 80-year-old, Afro-Turkish,?Hand woman who was admitted after being found on the floor by her son, as per RN. Neurology is consulted to assess her current status in the setting of a progressive dementing illness. Past Medical History Cardiovascular: HTN, Hyperlipidemia Pulmonary: COPD, Other CENTRAL NERVOUS SYSTEM: Dementia, Other GI: Other Musculoskeletal: Osteoarthritis Rheumatologic: Fibromyalgia, Other Infectious disease: No pertinent hx Endocrine: Other Past Surgical History Past Surgical History: Hysterectomy, Other Family History Family History: Coronary Artery Disease Social History ALCOHOL: none Drugs: None Lives: with Family Current Problem List Problem List Problems Medical Problems: (1) Dementia Status: Acute Current Medications Current Medications Current Medications Sodium Chloride 1,000 ml @ 1,000 mls/hr 1X ONCE IV Last administered on 02/08/21at 19:22; Start 02/08/21 at 19:15; Stop 02/08/21 at 20:14; Status DC Lorazepam (Ativan Inj) 1 mg 1X ONCE IVP Last administered on 02/08/21at 21:35; Start 02/08/21 at 21:00; Stop 02/08/21 at 21:01; Status DC Info (FLU VACCINE SCREEN per RX) 1 each 1X ONCE MC ; Start 02/09/21 at 09:00; Stop 02/09/21 at 09:01; Status DC Acetaminophen (Tylenol) 650 mg PRN Q4HRS PRN PO PAIN/FEVER; Start 02/09/21 at 08:45 Albuterol Sulfate (Ventolin Neb Soln) 2.5 mg PRN Q6HRS PRN INH SHORTNESS OF BREATH; Start 02/09/21 at 08:45 Amlodipine Besylate (Norvasc) 10 mg DAILY PO Last administered on 02/09/21at 0 9:46; Start 02/09/21 at 09:30 Aspirin (Ecotrin) 81 mg DAILYWBKFT PO Last administered on 02/09/21at 09:46; Start 02/09/21 at 09:30 Atorvastatin Calcium (Lipitor) 10 mg QHS PO ; Start 02/09/21 at 21:00 Bupropion HCl (Wellbutrin Xl) 150 mg DAILY PO Last administered on 02/09/21 09:46; Start 02/09/21 at 09:30 Clonazepam (KlonoPIN) 0.5 mg BID PO Last administered on 02/09/21 09:46; Start 02/09/21 at 09:30 Docusate Sodium (Colace) 100 mg BID PO Last administered on 02/09/21 09:46; Start 02/09/21 at 09:30 Donepezil HCl (Aricept) 5 mg DAILY PO Last administered on 02/09/21 09:46; Start 02/09/21 at 09:30 Gabapentin (Neurontin) 300 mg TID PO Last administered on 02/09/21 09:46; Start 02/09/21 at 09:30 Polyethylene Glycol (miraLAX PACKET) 17 gm DAILY PO Last administered on 02/09/21 09:45; Start 02/09/21 at 09:30 Prednisone (Prednisone) 5 mg DAILY PO Last administered on 02/09/21at 09:47; Start 02/09/21 at 09:30 Tizanidine HCl (Zanaflex) 4 mg PRN TID PRN PO MUSCLE SPASMS; Start 02/09/21 at 08:45 Lisinopril (Prinivil) 40 mg DAILY PO Last administered on 02/09/21 09:46; Start 02/09/21 at 09:30 Non-Formulary Medication (Budesonide/ Formoterol Fumarate (Symbicort 160-4.5 Mcg Inhaler)) 2 puff BID IH ; Start 02/09/21 at 09:00; Status UNV Duloxetine HCl (Cymbalta) 60 mg DAILY PO Last administered on 02/09/21 09:46; Start 02/09/21 at 09:30 Albuterol Sulfate (Ventolin Neb Soln) 2.5 mg RTQID NEB ; Start 02/09/21 at 12:00 Budesonide (Pulmicort) 0.5 mg RTBID NEB ; Start 02/09/21 at 12:00 Active Scripts Active Aspirin Ec (Aspirin) 81 Mg Tablet.dr 81 Mg PO DAILYWBKFT 30 Days Atorvastatin Calcium 10 Mg Tablet 10 Mg PO QHS 30 Days Aricept (Donepezil Hcl) 5 Mg Tablet 5 Mg PO DAILY 30 Days Docusate Sodium 100 Mg Capsule 1 Cap PO BID 15 Days Miralax (Polyethylene Glycol 3350) 119 Gm Powder 17 Gm PO DAILY dissolve in water Cyclobenzaprine Hcl 10 Mg Tablet 1 Tab PO TID Gabapentin 300 Mg Capsule 300 Mg PO TID 30 Days Clonazepam (Clonazepam) 0.5 Mg Tablet 0.5 Mg PO BID 30 Days Reported Duloxetine Hcl 60 Mg Capsule.dr 60 Mg PO DAILY Tizanidine Hcl 4 Mg Tablet 4 Mg PO PRN TID PRN Symbicort 160-4.5 Mcg Inhaler (Budesonide/Formoterol Fumarate) 10.2 Gm Hfa.aer.ad 2 Puff IH BID Benazepril Hcl 40 Mg Tablet 40 Mg PO DAILY Prednisone (Prednisone) 10 Mg Tablet 5 Mg PO DAILY Hydrocodone-Apap 10-325 (Hydrocodone Bit/Acetaminophen) 1 Each Tablet 1-2 Tab PO PRN Q4HRS PRN Proair Hfa Inhaler (Albuterol Sulfate) 8.5 Gm Hfa.aer.ad 1 Puff INH PRN Q6HRS PRN Bupropion Xl (Bupropion Hcl) 150 Mg Tab.er.24h 150 Mg PO DAILY Tylenol (Acetaminophen) 325 Mg Tablet 2 Tab PO PRN Q4HRS Amlodipine Besylate 10 Mg Tablet 10 Mg PO DAILY Allergies Allergies: Coded Allergies: Penicillins (Verified Allergy, Intermediate, Rash, 06/16/16) ibuprofen (Verified Allergy, Intermediate, rash, 05/24/14) morphine (Verified Adverse Reaction, Intermediate, Itching, 03/20/19) Physical Exam Physical Exam Neurologic Examination Mental Status Exam: Attention: Awake, alert not answering any questions about orientation or current events. Language: Speech is hypofluent without word finding difficulties or paraphasias. Naming is not normal for object details and there seems to be neuropraxis. She answers "I do not know" to most of my questions. Memory: Not tested Visual spatial skills: There is no visual neglect Cranial Nerves: Cranial nerve I: Not tested Cranial nerve II: Visual donis are full to threat Cranial nerve III, IV and : She does not follow commands but does track in the horizontal plane bilaterally. Cranial nerve V: Normal facial sensation Cranial nerve VII: No obvious facial symmetry Cranial nerve VIII: Not formally test Cranial nerve IX, X: Not cooperative for test Cranial nerve XI: Not tested Cranial nerve XII: Not tested Motor Examination: Strength seems to be 5/5 diffusely. There are no involuntary movements and she did not cooperate with the rest examination. Sensory Examination: She consents to normality of light touch diffusely Cortical Sensory Functions: Not tested General: Alert, Cooperative, No acute distress HEENT: Atraumatic, Mucous membr. moist/pink Extremities: No clubbing Neuro: Normal speech, Strength at 5/5 X4 ext, Normal tone, Sensation intact MUSCULOSKELETAL: No muscular tenderness noted, Full range of motion without pain Vitals VITALS Vital Signs Date Time Temp Pulse Resp B/P (MAP) Pulse Ox O2 Delivery O2 Flow Rate FiO2 02/09/21 09:46 92 162/94 02/09/21 08:00 Nasal Cannula 2.0 02/09/21 07:59 97.7 18 97 97.7 Labs Labs Laboratory Tests Test 02/08/21 18:59 02/08/21 19:15 02/08/21 21:45 02/09/21 07:30 White Blood Count 7.5 x10^3/uL (4.0-11.0) 6.4 x10^3/uL (4.0-11.0) Red Blood Count 3.92 x10^6/uL (3.50-5.40) 3.54 x10^6/uL (3.50-5.40) Hemoglobin 10.9 g/dL (12.0-15.5) 9.7 g/dL (12.0-15.5) Hematocrit 33.1 % (36.0-47.0) 30.4 % (36.0-47.0) Mean Corpuscular Volume 84 fL (79-100) 86 fL (79-100) Mean Corpuscular Hemoglobin 28 pg (25-35) 27 pg (25-35) Mean Corpuscular Hemoglobin Concent 33 g/dL (31-37) 32 g/dL (31-37) Red Cell Distribution Width 18.6 % (11.5-14.5) 18.7 % (11.5-14.5) Platelet Count 435 x10^3/uL (140-400) 430 x10^3/uL (140-400) Neutrophils (%) (Auto) 71 % (31-73) 68 % (31-73) Lymphocytes (%) (Auto) 16 % (24-48) 18 % (24-48) Monocytes (%) (Auto) 11 % (0-9) 10 % (0-9) Eosinophils (%) (Auto) 2 % (0-3) 3 % (0-3) Basophils (%) (Auto) 1 % (0-3) 1 % (0-3) Neutrophils # (Auto) 5.3 x10^3/uL (1.8-7.7) 4.3 x10^3/uL (1.8-7.7) Lymphocytes # (Auto) 1.2 x10^3/uL (1.0-4.8) 1.1 x10^3/uL (1.0-4.8) Monocytes # (Auto) 0.8 x10^3/uL (0.0-1.1) 0.7 x10^3/uL (0.0-1.1) Eosinophils # (Auto) 0.1 x10^3/uL (0.0-0.7) 0.2 x10^3/uL (0.0-0.7) Basophils # (Auto) 0.1 x10^3/uL (0.0-0.2) 0.0 x10^3/uL (0.0-0.2) Sodium Level 142 mmol/L (136-145) 146 mmol/L (136-145) Potassium Level 4.2 mmol/L (3.5-5.1) 3.6 mmol/L (3.5-5.1) Chloride Level 99 mmol/L (98-107) 103 mmol/L (98-107) Carbon Dioxide Level 29 mmol/L (21-32) 30 mmol/L (21-32) Anion Gap 14 (6-14) 13 (6-14) Blood Urea Nitrogen 18 mg/dL (7-20) 14 mg/dL (7-20) Creatinine 0.5 mg/dL (0.6-1.0) 0.4 mg/dL (0.6-1.0) Estimated GFR (Cockcroft-Gault) 143.6 185.8 BUN/Creatinine Ratio 36 (6-20) 35 (6-20) Glucose Level 90 mg/dL (70-99) 82 mg/dL (70-99) Calcium Level 10.1 mg/dL (8.5-10.1) 9.4 mg/dL (8.5-10.1) Total Bilirubin 0.5 mg/dL (0.2-1.0) 0.4 mg/dL (0.2-1.0) Aspartate Amino Transf (AST/SGOT) 31 U/L (15-37) 17 U/L (15-37) Alanine Aminotransferase (ALT/SGPT) 15 U/L (14-59) 12 U/L (14-59) Alkaline Phosphatase 93 U/L (46-116) 86 U/L (46-116) Creatine Kinase 89 U/L (26-192) Total Protein 8.3 g/dL (6.4-8.2) 6.7 g/dL (6.4-8.2) Albumin 3.4 g/dL (3.4-5.0) 3.0 g/dL (3.4-5.0) Albumin/Globulin Ratio 0.7 (1.0-1.7) 0.8 (1.0-1.7) SARS-CoV-2 Antigen (Rapid) Negative (NEGATIVE) Urine Collection Type U cath Urine Color Yellow Urine Clarity Clear Urine pH 6.0 (<5.0-8.0) Urine Specific [place] 1.025 (1.000-1.030) Urine Protein 100 mg/dL (NEG-TRACE) Urine Glucose (UA) Negative mg/dL (NEG) Urine Ketones (Stick) >=80 mg/dL (NEG) Urine Blood Negative (NEG) Urine Nitrite Negative (NEG) Urine Bilirubin Moderate (NEG) Urine Urobilinogen Dipstick 1.0 mg/dL (0.2 mg/dL) Urine Leukocyte Esterase Negative (NEG) Urine RBC 0 /HPF (0-2) Urine WBC 0 /HPF (0-4) Urine Squamous Epithelial Cells Few /LPF Urine Bacteria 0 /HPF (0-FEW) Urine Mucus Mod /LPF Laboratory Tests Test 02/08/21 18:59 02/08/21 19:15 02/08/21 21:45 02/09/21 07:30 White Blood Count 7.5 x10^3/uL (4.0-11.0) 6.4 x10^3/uL (4.0-11.0) Red Blood Count 3.92 x10^6/uL (3.50-5.40) 3.54 x10^6/uL (3.50-5.40) Hemoglobin 10.9 g/dL (12.0-15.5) 9.7 g/dL (12.0-15.5) Hematocrit 33.1 % (36.0-47.0) 30.4 % (36.0-47.0) Mean Corpuscular Volume 84 fL (79-100) 86 fL (79-100) Mean Corpuscular Hemoglobin 28 pg (25-35) 27 pg (25-35) Mean Corpuscular Hemoglobin Concent 33 g/dL (31-37) 32 g/dL (31-37) Red Cell Distribution Width 18.6 % (11.5-14.5) 18.7 % (11.5-14.5) Platelet Count 435 x10^3/uL (140-400) 430 x10^3/uL (140-400) Neutrophils (%) (Auto) 71 % (31-73) 68 % (31-73) Lymphocytes (%) (Auto) 16 % (24-48) 18 % (24-48) Monocytes (%) (Auto) 11 % (0-9) 10 % (0-9) Eosinophils (%) (Auto) 2 % (0-3) 3 % (0-3) Basophils (%) (Auto) 1 % (0-3) 1 % (0-3) Neutrophils # (Auto) 5.3 x10^3/uL (1.8-7.7) 4.3 x10^3/uL (1.8-7.7) Lymphocytes # (Auto) 1.2 x10^3/uL (1.0-4.8) 1.1 x10^3/uL (1.0-4.8) Monocytes # (Auto) 0.8 x10^3/uL (0.0-1.1) 0.7 x10^3/uL (0.0-1.1) Eosinophils # (Auto) 0.1 x10^3/uL (0.0-0.7) 0.2 x10^3/uL (0.0-0.7) Basophils # (Auto) 0.1 x10^3/uL (0.0-0.2) 0.0 x10^3/uL (0.0-0.2) Sodium Level 142 mmol/L (136-145) 146 mmol/L (136-145) Potassium Level 4.2 mmol/L (3.5-5.1) 3.6 mmol/L (3.5-5.1) Chloride Level 99 mmol/L (98-107) 103 mmol/L (98-107) Carbon Dioxide Level 29 mmol/L (21-32) 30 mmol/L (21-32) Anion Gap 14 (6-14) 13 (6-14) Blood Urea Nitrogen 18 mg/dL (7-20) 14 mg/dL (7-20) Creatinine 0.5 mg/dL (0.6-1.0) 0.4 mg/dL (0.6-1.0) Estimated GFR (Cockcroft-Gault) 143.6 185.8 BUN/Creatinine Ratio 36 (6-20) 35 (6-20) Glucose Level 90 mg/dL (70-99) 82 mg/dL (70-99) Calcium Level 10.1 mg/dL (8.5-10.1) 9.4 mg/dL (8.5-10.1) Total Bilirubin 0.5 mg/dL (0.2-1.0) 0.4 mg/dL (0.2-1.0) Aspartate Amino Transf (AST/SGOT) 31 U/L (15-37) 17 U/L (15-37) Alanine Aminotransferase (ALT/SGPT) 15 U/L (14-59) 12 U/L (14-59) Alkaline Phosphatase 93 U/L (46-116) 86 U/L (46-116) Creatine Kinase 89 U/L (26-192) Total Protein 8.3 g/dL (6.4-8.2) 6.7 g/dL (6.4-8.2) Albumin 3.4 g/dL (3.4-5.0) 3.0 g/dL (3.4-5.0) Albumin/Globulin Ratio 0.7 (1.0-1.7) 0.8 (1.0-1.7) SARS-CoV-2 Antigen (Rapid) Negative (NEGATIVE) Urine Collection Type U cath Urine Color Yellow Urine Clarity Clear Urine pH 6.0 (<5.0-8.0) Urine Specific [place] 1.025 (1.000-1.030) Urine Protein 100 mg/dL (NEG-TRACE) Urine Glucose (UA) Negative mg/dL (NEG) Urine Ketones (Stick) >=80 mg/dL (NEG) Urine Blood Negative (NEG) Urine Nitrite Negative (NEG) Urine Bilirubin Moderate (NEG) Urine Urobilinogen Dipstick 1.0 mg/dL (0.2 mg/dL) Urine Leukocyte Esterase Negative (NEG) Urine RBC 0 /HPF (0-2) Urine WBC 0 /HPF (0-4) Urine Squamous Epithelial Cells Few /LPF Urine Bacteria 0 /HPF (0-FEW) Urine Mucus Mod /LPF Assessment/Plan Assessment/Plan Progressive dementing illness by history for which neurology has been asked to perform a contour evaluation. This is not the setting all the proper time, due to the possibility of her having an infectious process although she is afebrile; rapid Covid test is negative but we are awaiting the serology take 48 hours. Also, I have no previous values to discern if she is worsening or not. If the family would like a Formal Cognitive Evaluation They Should Do so As an Outpatient When She Is at Her Best with formal neuropsychological testing Neurology is signing off. MELIDA GLASS MD Feb 09, 2021 11:11
--- NOTE | 2021-02-09 11:47 | PDOC ---
Provider Note Date of Service: DATE: 02/09/21 TIME: 11:45 Provider Note Pt seen .H&P dictated.#[id number]. Neuro consult. pts son want to take her back home after neuro consult. social service consult. Offered she might benefit from inpatient at [facility] at [place],pt son refusing at present. Justifications for Admission Other Justification NATHAN PIEDRA MD Feb 09, 2021 11:47
[2021-02-09] MEDS: BUDESONIDE 0.5 MG/2 ML NEBU. NEB SCH ×2 (12:03→16:58)
[2021-02-09] MEDS: ALBUTEROL SULFATE 2.5 MG/3 ML NEBU. NEB SCH ×3 (12:04→19:55)
--- NOTE | 2021-02-09 12:04 | HP ---
DATE OF SERVICE: 02/09/2021 ADMIT DATE: 02/08/2021 REASON FOR ADMISSION TO THE HOSPITAL: Confusion, worsening dementia. HISTORY OF PRESENT ILLNESS: The patient is an 80-year-old female. The patient was last seen close to 6 months ago. She has a progressive dementia, not seen in the office. She has been taken care of at home. She has a caregiver, which come 24 hours a day and lately one of the caregivers were sick, they are trying to find the substitute and she was having more agitation, confusion and falls. The patient does not use a walker and the patient was admitted to the hospital for further evaluation. CT head was done. PAST MEDICAL HISTORY: History of hypertension, COPD, constipation, arthritis, fibromyalgia, hyperthyroid problems, osteoporosis, chronic pain. PAST SURGICAL HISTORY: Hysterectomy, partial thyroidectomy. SOCIAL HISTORY: Former smoker. Denies alcohol or drug abuse. ALLERGIES: PENICILLIN, IBUPROFEN, AND MORPHINE. MEDICATIONS AT HOME: These were the last medications, Tylenol, albuterol inhaler, amlodipine 10 mg, aspirin 81 mg, atorvastatin 10 mg, benazepril 40 mg, Symbicort 140/4.5 twice a day, bupropion 150 mg, clonazepam 0.5 twice a day, Colace 100 mg twice a day, Aricept 5 mg daily, duloxetine 60 mg daily, gabapentin 300 mg 3 times daily, MiraLax 17 grams daily, prednisone 5 mg daily, and tizanidine 4 mg p.r.n. REVIEW OF SYSTEMS: The patient is awake, says I do not want anything. The patient does not remember me. She says her name, but she is not oriented to the time or to the place. PHYSICAL EXAMINATION: VITAL SIGNS: At the time of admission shows temperature 97, pulse 88, respirations 22, blood pressure 124/83, 100% on 2 liters. HEENT: Head is atraumatic. Pupils equal. Oral cavity, no teeth. NECK: Supple. CHEST: Symmetrical. CARDIOVASCULAR: S1, S2. LUNGS: Clear to auscultation. ABDOMEN: Soft. No mass palpable. EXTERNAL GENITALIA: Deferred. EXTREMITIES: No calf tenderness, no edema. NEUROLOGIC: The patient is awake. The patient does not want to be bothered, says I do not know. She says she does not remember me. She knows her name, not oriented to time or place or to the ER. LABORATORY DATA: Laboratory data shows a white count of 7, hemoglobin 11, platelets 435. Electrolytes show sodium 142, potassium 4.2, chloride 99, bicarbonate 29, anion gap 14, BUN 18, creatinine 0.5, glucose 90. LFTs normal. Urine negative for infection. Serology was negative for COVID rapid test. CT head, old meningioma, 3.8 x 3 cm, stable. FINAL IMPRESSION: 1. Dementia, progressively getting worse. 2. Generalized weakness. 3. Meningioma, stable. 4. Chronic obstructive pulmonary disease. 5. Fibromyalgia. 6. Hypertension. 7. Hyperlipidemia. PLAN: At this time, had extensive discussion with the patient's son who is a DPOA and is expressing that the patient is refusing treatments at home and he would like to get cognitive function evaluation, so he could probably take over the guardianship. We will have a Neurology consult. Unfortunately, we do not have any psychiatrist here in this hospital. Also recommended that the patient would benefit probably from inpatient psychiatric facility at [facility] and the patient's son is not willing at this point to send her there and would like to take her back home and try to get 24-hour coverage. In the past, I discussed about hospice and the patient is not ready yet for hospice at this point. DONNA DR: Hanna TID: [id number]
--- NOTE | 2021-02-09 12:29 | NUR ---
SW following. Discussed with RN, pt from home alone, 2L, cardiac diet, rapid COVID-19 negative, PCR pending. PT/OT ordered. Per RN, family requesting to speak with SW regarding the plan. SW spoke with pt's son/DPOA Ana María Verdugo (ph: [phone]). SW explained that the patient just got here, therapy hasn't worked with her yet and it is only day one. SW explained that pt likely won't qualify for a [facility] stay but that we can revisit that after having some more time with the patient, and if it is recommended. Abu verbalized understanding. SW encouraged Abu to find the DPOA paperwork and wait to hear from SW when more information is known. SW will continue to follow.
--- NOTE | 2021-02-09 13:25 | RAD ---
EXAMINATION: XR CHEST 1V CLINICAL HISTORY: COPD EXAM DATE/TIME: 02/09/2021 10:53 AM COMPARISON: 09/27/2019 FINDINGS: Lines, Tubes, and Devices: None. Cardiomediastinal Silhouette: Cardiomegaly and aortic atherosclerotic calcification, similar to prior study. Lungs and Pleura: Stable appearance of the left lower lung zone. Nonspecific mild interstitial promin ence, similar to prior study. Lungs otherwise essentially clear. Bones and Soft Tissues: Degenerative changes in the thoracic spine. IMPRESSION: No evidence of acute cardiopulmonary abnormality or significant interval change. Electronically signed by: Krzysztof Rodriguez DO (02/09/2021 1:22 PM) [id number]
[2021-02-09] MEDS ORDERED: FLU VACC QUAD 21-22 (6MOS+) PF 0.5 ML SYRINGE. VAX IM ONE (21:00)
[2021-02-09] MEDS: ATORVASTATIN CALCIUM 10 MG TABLET. PO SCH (21:04)
[2021-02-09] MEDS: tiZANidine 4 MG TABLET. PO PRN (21:30)
[2021-02-10] MEDS: ACETAMINOPHEN 325 MG TABLET. PO PRN (06:12)
--- NOTE | 2021-02-10 06:14 | NUR ---
Pt c/o pain to her left side, towards the lumbar area, 5/10. Given her pain med/muscle relaxant and denies pain this morning but c/o headache. Given tylenol.
[2021-02-10 07:00] VITALS: BP 144/66
[2021-02-10] MEDS: BUDESONIDE 0.5 MG/2 ML NEBU. NEB SCH ×2 (08:00→19:59)
[2021-02-10] MEDS: ALBUTEROL SULFATE 2.5 MG/3 ML NEBU. NEB SCH ×4 (08:00→19:59)
[2021-02-10] MEDS: DULoxetine HCL 30 MG CAPSULE.DR PO SCH (08:39)
[2021-02-10] MEDS: DOCUSATE SODIUM 100 MG CAPSULE. PO SCH ×2 (08:39→20:46)
[2021-02-10] MEDS: ASPIRIN ENTERIC COATED 81 MG TABLET.DR. PO SCH (08:39)
[2021-02-10] MEDS: DONEPEZIL HCL 5 MG TABLET. PO SCH (08:40)
[2021-02-10] MEDS: POLYETHYLENE GLYCOL 3350 17 GM PACKET. PO SCH (08:40)
[2021-02-10] MEDS: buPROPion XL 150 MG TAB.ER.24H. PO SCH (08:40)
[2021-02-10] MEDS: clonazePAM 0.5 MG TABLET PO SCH ×2 (08:40→20:46)
[2021-02-10] MEDS: GABAPENTIN 300 MG CAPSULE. PO SCH ×3 (08:40→20:46)
[2021-02-10] MEDS: predniSONE 5 MG TABLET PO SCH (08:40)
[2021-02-10] MEDS: LISINOPRIL 20 MG TABLET PO SCH (08:40)
--- NOTE | 2021-02-10 08:49 | PDOC ---
PROGRESS NOTES Date of Service: DATE: 02/10/21 TIME: 08:49 Subjective Subjective pt less agitated , calm son at bedside, pt remembers my name. Objective Objective Vital Signs Date Time Temp Pulse Resp B/P (MAP) Pulse Ox O2 Delivery O2 Flow Rate FiO2 02/10/21 08:40 74 144/66 02/09/21 23:00 16 94 Nasal Cannula 2.0 02/09/21 15:00 98.0 98.0 Intake and Output 02/10/21 06:59 Intake Total 820 ml Balance 820 ml Intake Oral 820 ml # Voids 3 Physical Exam Extremities: No clubbing General: Alert, Cooperative, No acute distress HEENT: Atraumatic, Mucous membr. moist/pink MUSCULOSKELETAL: No muscular tenderness noted, Full range of motion without pain Neuro: Normal speech, Strength at 5/5 X4 ext, Normal tone, Sensation intact Diagnosis Problem List Problems Medical Problems: (1) Dementia Status: Acute Assessment Assessment Problems Medical Problems: (1) Dementia Status: Acute FINAL IMPRESSION: 1. Dementia, progressively getting worse. 2. Generalized weakness. 3. Meningioma, stable. 4. Chronic obstructive pulmonary disease. 5. Fibromyalgia. 6. Hypertension. 7. Hyperlipidemia. PLAN: ct head no cva labs good cxr -ve covid -ve spoke with son at bedside disccused options for inpatient geripsyche in [place] ultimately pts son want to take her to his homw in [place] for her to stay with him , he works in day time he want home care in daytime ,he can be with her at night spoke with bilingual patient support caseworker and social work. Neuro consult noted. At this time, had extensive discussion with the patient's son who is a DPOA and is expressing that the patient is refusing treatments at home and he would like to get cognitive function evaluation, so he could probably take over the guardianship. We will have a Neurology consult. Unfortunately, we do not have any psychiatrist here in this hospital. Also recommended that the patient would benefit probably from inpatient psychiatric facility at [facility] and the patient's son is not willing at this point to send her there and would like to take her back home and try to get 24-hour coverage. In the past, I discussed about hospice and the patient is not ready yet for hospice at this point. Plan Plan of Care Problems Medical Problems: (1) Dementia Status: Acute Comment Review of Relevant I have reviewed the following items violeta (where applicable) has been applied. Medications Current Medications Albuterol Sulfate (Ventolin Neb Soln) 2.5 mg RTQID NEB Last administered on 02/09/21 16:58; Start 02/09/21 at 12:00 Amlodipine Besylate (Norvasc) 10 mg DAILY PO Last administered on 02/10/21 08:40; Start 02/09/21 at 09:30 Aspirin (Ecotrin) 81 mg DAILYWBKFT PO Last administered on 02/10/21 08:39; Start 02/09/21 at 09:30 Atorvastatin Calcium (Lipitor) 10 mg QHS PO Last administered on 02/09/21 21:04; Start 02/09/21 at 21:00 Budesonide (Pulmicort) 0.5 mg RTBID NEB Last administered on 02/09/21 16:58; Start 02/09/21 at 12:00 Bupropion HCl (Wellbutrin Xl) 150 mg DAILY PO Last administered on 02/10/21 08:40; Start 02/09/21 at 09:30 Clonazepam (KlonoPIN) 0.5 mg BID PO Last administered on 02/10/21 08:40; Start 02/09/21 at 09:30 Docusate Sodium (Colace) 100 mg BID PO Last administered on 02/10/21 08:39; Start 02/09/21 at 09:30 Donepezil HCl (Aricept) 5 mg DAILY PO Last administered on 02/10/21 08:40; Start 02/09/21 at 09:30 Duloxetine HCl (Cymbalta) 60 mg DAILY PO Last administered on 02/10/21 08:39; Start 02/09/21 at 09:30 Gabapentin (Neurontin) 300 mg TID PO Last administered on 02/10/21 08:40; Start 02/09/21 at 09:30 Influenza Virus Vaccine Quadrival (Flulaval Quad [id number] Syringe) 0.5 ml ONCE ONCE VAX IM ; Start 02/09/21 at 21:00; Stop 02/09/21 at 21:01; Status DC Info (FLU VACCINE SCREEN per RX) 1 each 1X ONCE MC ; Start 02/09/21 at 09:00; Stop 02/09/21 at 09:01; Status DC Lisinopril (Prinivil) 40 mg DAILY PO Last administered on 02/10/21at 08:40; Start 02/09/21 at 09:30 Non-Formulary Medication (Budesonide/ Formoterol Fumarate (Symbicort 160-4.5 Mcg Inhaler)) 2 puff BID IH ; Start 02/09/21 at 09:00; Status UNV Polyethylene Glycol (miraLAX PACKET) 17 gm DAILY PO Last administered on 02/10/21at 08:40; Start 02/09/21 at 09:30 Prednisone (Prednisone) 5 mg DAILY PO Last administered on 02/10/21at 08:40; Start 02/09/21 at 09:30 Vitals/I & O Vital Sign - Last 24 Hours 02/09/21 02/09/21 02/09/21 02/09/21 09:46 09:46 11:00 15:00 Temp 98.0 98.0 98.0 98.0 Pulse 92 92 87 86 Resp 18 18 B/P (MAP) 162/94 162/94 155/90 (111) 128/65 (86) Pulse Ox 95 97 O2 Delivery Nasal Cannula Nasal Cannula O2 Flow Rate 2.0 2.0 02/09/21 02/09/21 02/09/21 02/09/21 16:59 19:00 20:00 23:00 Pulse 78 66 Resp 16 16 B/P (MAP) 141/66 (91) 108/57 (74) Pulse Ox 100 94 O2 Delivery Nasal Cannula Nasal Cannula Nasal Cannula Nasal Cannula O2 Flow Rate 2.0 2.0 2.0 2.0 02/10/21 02/10/21 08:40 08:40 Pulse 74 74 B/P (MAP) 144/66 144/66 Intake and Output 02/09/21 02/09/21 02/10/21 14:59 22:59 06:59 Intake Total 480 ml 340 ml Balance 480 ml 340 ml Justifications for Admission Other Justification NATHAN PIEDRA MD Feb 10, 2021 08:49
[2021-02-10 11:00] VITALS: BP 160/71
--- NOTE | 2021-02-10 13:17 | NUR ---
SW following. Discussed with RN, SW spoke with pt's son, Ana María, got DPOA paperwork. Referral faxed to [facility] in [place], awaiting acceptance decision. Plan is for Ana María to take pt to his home if pt is not accepted at [facility]. Abu agreeable to home health. DENIS will continue to follow.
[2021-02-10 15:00] VITALS: BP 145/64
[2021-02-10 19:00] VITALS: BP 155/75
[2021-02-10] MEDS: ATORVASTATIN CALCIUM 10 MG TABLET. PO SCH (20:46)
--- NOTE | 2021-02-10 22:14 | SNU/HH DC ---
DISCHARGE ORDERS DISCHARGE INFORMATION: DISCHARGE DATE: Feb 11, 2021 FINAL DIAGNOSIS Problems Medical Problems: (1) Dementia Status: Acute CONDITION ON DISCHARGE: Stable CODE STATUS: Code Status: Full USP: SNF STAY <30 DAYS: Yes HOSPICE: HOSPICE: No LTAC: ADMIT TO LTAC: No POST DISCHARGE ORDERS: ACTIVITY ORDERS: Activity as tolerated WEIGHT BEARING STATUS: As tolerated DIET AFTER DISCHARGE: Cardiac CHECKS AFTER DISCHARGE: CHECKS AFTER DISCHARGE: Check blood press - daily TREATMENT/EQUIPMENT ORDERS: ADAPTIVE EQUIPMENT NEEDED: Walker RESPIRATORY EQUIPMENT NEEDED: Oxygen Physical Therapy For: Evalulation/Treatment Occupational Therapy For: Evaluation/Treatment DISCHARGE MEDICATIONS: Home Meds Active Scripts Aspirin (ASPIRIN EC) 81 Mg Tablet., 81 MG PO DAILYWBKFT for cad for 30 Days, #30 TAB.SR Prov:NATHAN PIEDRA MD 09/26/20 Atorvastatin Calcium (ATORVASTATIN CALCIUM) 10 Mg Tablet, 10 MG PO QHS for cad for 30 Days, #30 TAB Prov:NATHAN PIEDRA MD 09/26/20 Donepezil Hcl (ARICEPT) 5 Mg Tablet, 5 MG PO DAILY for dementia for 30 Days, #30 TAB Prov:NATHAN PIEDRA MD 09/26/20 Docusate Sodium (DOCUSATE SODIUM) 100 Mg Capsule, 1 CAP PO BID for constipation for 15 Days, #30 CAP 0 Refills Prov:EMORY AGUIRRE APRN 09/01/20 Polyethylene Glycol 3350 (MIRALAX) 119 Gm Powder, 17 GM PO DAILY for constipation, #527 GM 0 Refills dissolve in water Prov:EMORY AGUIRRE APRN 09/01/20 Gabapentin (GABAPENTIN) 300 Mg Capsule, 300 MG PO TID for 30 Days, TAB 6 Refills Prov:MATIAS VALERIO MD 06/20/16 Clonazepam (CLONAZEPAM ) 0.5 Mg Tablet, 0.5 MG PO BID for 30 Days, TAB 0 Refills Prov:MATIAS VALERIO MD 06/20/16 Reported Medications Duloxetine Hcl (DULOXETINE HCL) 60 Mg Capsule., 60 MG PO DAILY 06/06/17 Tizanidine Hcl (TIZANIDINE HCL) 4 Mg Tablet, 4 MG PO PRN TID PRN for MUSCLE SPASMS, TAB 06/06/17 Budesonide/Formoterol Fumarate (SYMBICORT 160-4.5 MCG INHALER) 10.2 Gm Hfa.aer.ad, 2 PUFF IH BID, #10.6 GM 3 Refills 06/06/17 Benazepril Hcl (BENAZEPRIL HCL) 40 Mg Tablet, 40 MG PO DAILY 06/06/17 Prednisone (PREDNISONE ) 10 Mg Tablet, 5 MG PO DAILY, TAB 06/06/17 Albuterol Sulfate (PROAIR HFA INHALER) 8.5 Gm Hfa.aer.ad, 1 PUFF INH PRN Q6HRS PRN for SHORTNESS OF BREATH, INHALER 0 Refills 06/06/17 Bupropion Hcl (BUPROPION XL) 150 Mg Tab.er.24h, 150 MG PO DAILY, TAB.SR 06/06/17 Acetaminophen (TYLENOL) 325 Mg Tablet, 2 TAB PO PRN Q4HRS, #30 TAB 06/16/16 Amlodipine Besylate (AMLODIPINE BESYLATE) 10 Mg Tablet, 10 MG PO DAILY, #30 06/16/16 Discontinued Reported Medications Hydrocodone Bit/Acetaminophen (HYDROCODONE-APAP 10-325 ) 1 Each Tablet, 1-2 TAB PO PRN Q4HRS PRN for PAIN, TAB 0 Refills 06/06/17 Discontinued Scripts Cyclobenzaprine Hcl (CYCLOBENZAPRINE HCL) 10 Mg Tablet, 1 TAB PO TID, #30 TAB Prov:EMORY AGUIRRE APRN 10/31/18 NATHAN PIEDRA MD Feb 10, 2021 22:14
[2021-02-10 22:51] VITALS: BP 148/72
[2021-02-11 02:54] VITALS: BP 142/68
[2021-02-11] MEDS: tiZANidine 4 MG TABLET. PO PRN (04:09)
[2021-02-11] MEDS: ACETAMINOPHEN 325 MG TABLET. PO PRN ×2 (04:09→14:08)
[2021-02-11] MEDS: ALBUTEROL SULFATE 2.5 MG/3 ML NEBU. NEB SCH ×3 (07:08→16:11)
[2021-02-11] MEDS: BUDESONIDE 0.5 MG/2 ML NEBU. NEB SCH (07:08)
[2021-02-11 07:30] VITALS: BP 136/63
[2021-02-11] MEDS: ASPIRIN ENTERIC COATED 81 MG TABLET.DR. PO SCH (08:20)
--- NOTE | 2021-02-11 08:21 | NUR ---
Patient is refusing breathing treatments. She also refused breathing treatments x 4 yesterday. IAN Porter informed.
[2021-02-11] MEDS: buPROPion XL 150 MG TAB.ER.24H. PO SCH (08:22)
[2021-02-11] MEDS: GABAPENTIN 300 MG CAPSULE. PO SCH ×3 (08:22→20:38)
[2021-02-11] MEDS: DULoxetine HCL 30 MG CAPSULE.DR PO SCH (08:22)
[2021-02-11] MEDS: predniSONE 5 MG TABLET PO SCH (08:22)
[2021-02-11] MEDS: DOCUSATE SODIUM 100 MG CAPSULE. PO SCH ×2 (08:22→20:38)
[2021-02-11] MEDS: clonazePAM 0.5 MG TABLET PO SCH ×2 (08:22→20:38)
[2021-02-11] MEDS: DONEPEZIL HCL 5 MG TABLET. PO SCH (08:22)
[2021-02-11] MEDS: POLYETHYLENE GLYCOL 3350 17 GM PACKET. PO SCH (08:22)
--- NOTE | 2021-02-11 09:06 | PDOC ---
PROGRESS NOTES Date of Service: DATE: 02/11/21 TIME: 09:04 Subjective Subjective no new problems,waiting for discharge Objective Objective Vital Signs Date Time Temp Pulse Resp B/P (MAP) Pulse Ox O2 Delivery O2 Flow Rate FiO2 02/11/21 08:28 Nasal Cannula 2.0 02/11/21 07:30 97.9 73 18 136/63 (87) 93 97.9 Intake and Output 02/11/21 07:00 # Voids 2 # Bowel Movements 1 Physical Exam Abdomen: Soft Heart: Normal S1, Normal S2 Extremities: No clubbing General: Alert, Cooperative, No acute distress HEENT: Atraumatic, Mucous membr. moist/pink MUSCULOSKELETAL: No muscular tenderness noted, Full range of motion without pain Neuro: Normal speech, Strength at 5/5 X4 ext, Normal tone, Sensation intact Skin: No breakdown Diagnosis Problem List Problems Medical Problems: (1) Dementia Status: Acute Assessment Assessment Problems Medical Problems: (1) Dementia Status: Acute FINAL IMPRESSION: 1. Dementia, progressively getting worse. 2. Generalized weakness. 3. Meningioma, stable. 4. Chronic obstructive pulmonary disease. 5. Fibromyalgia. 6. Hypertension. 7. Hyperlipidemia. PLAN: discharge today. ct head no cva,old meningioma stable labs good cxr -ve covid -ve spoke with son at bedside yesterday disccused options for [place]che in [place] ultimately pts son want to take her to his home [place] for her to stay with him , he works in day time he want home care in daytime ,he can be with her at night spoke with high risk case manager and social work. Neuro consult noted. At this time, had extensive discussion with the patient's son who is a DPOA and is expressing that the patient is refusing treatments at home and he would like to get cognitive function evaluation, so he could probably take over the guardianship. We will have a Neurology consult. Unfortunately, we do not have any psychiatrist here in this hospital. Also recommended that the patient would benefit probably from inpatient psychiatric facility at [facility] and the patient's son is not willing at this point to send her there and would like to take her back home and try to get 24-hour coverage. In the past, I discussed about hospice and the patient is not ready yet for hospice at this point. Plan Plan of Care Problems Medical Problems: (1) Dementia Status: Acute Comment Review of Relevant I have reviewed the following items violeta (where applicable) has been applied. Vitals/I & O Vital Sign - Last 24 Hours 02/10/21 02/10/21 02/10/21 02/10/21 11:00 15:00 19:00 20:00 Temp 97.1 97.2 97.7 97.1 97.2 97.7 Pulse 79 81 75 Resp 20 20 17 B/P (MAP) 160/71 (100) 145/64 (91) 155/75 (101) Pulse Ox 100 100 100 O2 Delivery Nasal Cannula Nasal Cannula Nasal Cannula O2 Flow Rate 2.0 2.0 2.0 02/10/21 02/10/21 02/11/21 02/11/21 20:00 22:51 02:54 07:09 Temp 97.7 97.7 97.7 97.7 Pulse 70 70 Resp 17 17 B/P (MAP) 148/72 (97) 142/68 (92) Pulse Ox 100 100 88 O2 Delivery Nasal Cannula Nasal Cannula Nasal Cannula Room Air O2 Flow Rate 2.0 2.0 2.0 02/11/21 02/11/21 07:30 08:28 Temp 97.9 97.9 Pulse 73 Resp 18 B/P (MAP) 136/63 (87) Pulse Ox 93 O2 Delivery Nasal Cannula Nasal Cannula O2 Flow Rate 2.0 2.0 Justifications for Admission Other Justification NATHAN PIEDRA MD Feb 11, 2021 09:06
[2021-02-11 11:00] VITALS: BP 142/79
[2021-02-11] MEDS: LISINOPRIL 20 MG TABLET PO SCH (11:22)
--- NOTE | 2021-02-11 14:43 | NUR ---
DENIS following. Discussed with RN, [facility] stated pt is not needing psych placement. DENIS discussed with pt's on, he requested SW try [facility] for SNF. Referral phoned and faxed. Awaiting acceptance decision. DENIS explained to Ana María the steps with SNF referrals and approvals etc. DENIS discussed back up options if facility unable to accept. Discussed with Dr. Jensen. DENIS will continue to follow. Addendum: 02/11/21 at 1605 by JOANNE BARRIOS [facility] declined. Referral faxed to [facility], pt accepted pending insurance auth. DENIS notified pt's son, Ana María.
[2021-02-11 15:00] VITALS: BP 144/73
[2021-02-11 19:00] VITALS: BP 159/75
[2021-02-11] MEDS ORDERED: BUDESONIDE 0.5 MG/2 ML NEBU. NEB PRN (19:45)
[2021-02-11] MEDS ORDERED: ALBUTEROL SULFATE 2.5 MG/3 ML NEBU. NEB PRN (19:45)
[2021-02-11] MEDS: ATORVASTATIN CALCIUM 10 MG TABLET. PO SCH (20:38)
[2021-02-11 23:00] VITALS: BP 172/79
[2021-02-12 03:00] VITALS: BP 160/82
[2021-02-12] MEDS: ACETAMINOPHEN 325 MG TABLET. PO PRN (05:00)
[2021-02-12 07:00] VITALS: BP 159/75
[2021-02-12] MEDS: ASPIRIN ENTERIC COATED 81 MG TABLET.DR. PO SCH (07:54)
[2021-02-12] MEDS: GABAPENTIN 300 MG CAPSULE. PO SCH ×2 (09:07→13:42)
[2021-02-12] MEDS: buPROPion XL 150 MG TAB.ER.24H. PO SCH (09:07)
[2021-02-12] MEDS: clonazePAM 0.5 MG TABLET PO SCH (09:07)
[2021-02-12] MEDS: DOCUSATE SODIUM 100 MG CAPSULE. PO SCH (09:07)
[2021-02-12] MEDS: DONEPEZIL HCL 5 MG TABLET. PO SCH (09:07)
[2021-02-12] MEDS: LISINOPRIL 20 MG TABLET PO SCH (09:07)
[2021-02-12] MEDS: predniSONE 5 MG TABLET PO SCH (09:07)
[2021-02-12] MEDS: POLYETHYLENE GLYCOL 3350 17 GM PACKET. PO SCH (09:07)
[2021-02-12] MEDS: DULoxetine HCL 30 MG CAPSULE.DR PO SCH (09:07)
--- NOTE | 2021-02-12 09:10 | PDOC ---
PROGRESS NOTES Date of Service: DATE: 02/12/21 TIME: 09:09 Subjective Subjective pt looks better and feels better Objective Objective Vital Signs Date Time Temp Pulse Resp B/P (MAP) Pulse Ox O2 Delivery O2 Flow Rate FiO2 02/12/21 09:08 82 159/75 02/12/21 08:02 Nasal Cannula 2.0 02/12/21 07:00 98.4 18 97 98.4 Intake and Output 02/12/21 06:59 Intake Total 240 ml Balance 240 ml Intake Oral 240 ml # Voids 2 Physical Exam Abdomen: Soft Heart: Normal S1, Normal S2 Extremities: No clubbing General: Alert, Cooperative, No acute distress HEENT: Atraumatic, Mucous membr. moist/pink MUSCULOSKELETAL: No muscular tenderness noted, Full range of motion without pain Neuro: Normal speech, Strength at 5/5 X4 ext, Normal tone, Sensation intact Skin: No breakdown Diagnosis Problem List Problems Medical Problems: (1) Dementia Status: Acute Assessment Assessment Problems Medical Problems: (1) Dementia Status: Acute FINAL IMPRESSION: 1. Dementia, progressively getting worse. 2. Generalized weakness. 3. Meningioma, stable. 4. Chronic obstructive pulmonary disease. 5. Fibromyalgia. 6. Hypertension. 7. Hyperlipidemia. PLAN: discharge to SNU today. ct head no cva,old meningioma stable labs good cxr -ve covid -ve spoke with son at bedside yesterday discussed options for inpatient [place]che [place] ultimately pts son want to take her to his home [place] for [place] to stay with him , he works in day time he want home care in daytime ,he can be with her at night spoke with project/production manager imaging and social work. Neuro consult noted. At this time, had extensive discussion with the patient's son who is a DPOA and is expressing that the patient is refusing treatments at home and he would like to get cognitive function evaluation, so he could probably take over the guardianship. We will have a Neurology consult. Unfortunately, we do not have any psychiatrist here in this hospital. Also recommended that the patient would benefit probably from inpatient psychiatric facility at [facility] and the patient's son is not willing at this point to send her there and would like to take her back home and try to get 24-hour coverage. In the past, I discussed about hospice and the patient is not ready yet for hospice at this point. Plan Plan of Care Problems Medical Problems: (1) Dementia Status: Acute Comment Review of Relevant I have reviewed the following items violeta (where applicable) has been applied. Medications Current Medications Albuterol Sulfate (Ventolin Neb Soln) 2.5 mg RTQID PRN NEB WHEEZING; Start 02/11/21 at 19:45 Budesonide (Pulmicort) 0.5 mg RTBID PRN NEB WHEEZING; Start 02/11/21 at 19:45 Vitals/I & O Vital Sign - Last 24 Hours 02/11/21 02/11/21 02/11/21 02/11/21 11:00 11:22 11:22 15:00 Temp 98.0 97.7 98.0 97.7 Pulse 76 73 73 75 Resp 18 18 B/P (MAP) 142/79 (100) 136/63 136/63 144/73 (96) Pulse Ox 98 100 O2 Delivery Nasal Cannula Nasal Cannula O2 Flow Rate 2.0 2.0 02/11/21 02/11/21 02/11/21 02/11/21 16:12 19:00 20:00 23:00 Temp 97.8 97.9 97.8 97.9 Pulse 85 81 Resp 18 16 B/P (MAP) 159/75 (103) 172/79 (110) Pulse Ox 92 100 100 O2 Delivery Nasal Cannula Nasal Cannula Nasal Cannula O2 Flow Rate 2.0 2.0 2.0 02/12/21 02/12/21 02/12/21 02/12/21 03:00 07:00 08:02 09:07 Temp 97.7 98.4 97.7 98.4 Pulse 86 82 82 Resp 18 18 B/P (MAP) 160/82 (108) 159/75 (103) 159/75 Pulse Ox 99 97 O2 Delivery Nasal Cannula Nasal Cannula Nasal Cannula O2 Flow Rate 2.0 2.0 2.0 02/12/21 09:08 Pulse 82 B/P (MAP) 159/75 Intake and Output 02/11/21 02/11/21 02/12/21 14:59 22:59 06:59 Intake Total 240 ml Balance 240 ml Justifications for Admission Other Justification NATHAN PIEDRA MD Feb 12, 2021 09:10
[2021-02-12 11:00] VITALS: BP 150/73
--- NOTE | 2021-02-12 14:23 | NUR ---
SW following. Discussed with RN, insurance approved transfer to [facility]. [place] arranged transportation for 1600. RN notified. Voicemail left for pt's son, Ana María. SW will continue to follow.
[2021-02-12 15:00] VITALS: BP 148/71
--- NOTE | 2021-02-12 15:14 | NUR ---
This RN gave report to BERNICE Anderson of [facility] at [phone].
--- NOTE | 2021-02-12 16:59 | NUR ---
Pt left unit at 1655 by wheelchair via EMS. Pt's paperwork sent with pt, report previously given to [facility].
--- NOTE | 2021-02-19 09:14 | PDOC ---
Provider Note Date of Service: DATE: 02/19/21 TIME: 09:14 Provider Note Discharge summary dictated.#[id number]. Justifications for Admission Other Justification NATHAN PIEDRA MD Feb 19, 2021 09:14
--- NOTE | 2021-02-19 09:37 | DS ---
DATE OF DISCHARGE: 02/12/2021 REASON FOR ADMISSION TO THE HOSPITAL: Confusion, lethargy dementia. CONSULTATIONS: Dr. Ross, Neurology. PROCEDURES DONE: CT head. COMPLICATIONS NOTED: None. HOSPITAL COURSE: The patient is an 80-year-old female. The patient lives at home. She has a caregiver in the daytime and the patient has been more confused lately, lethargic, agitated with some agitations. Family was concerned was brought to the hospital and CT head was negative and it was felt probably progression of the dementia. The patient has a caregiver in the daytime, but nobody at night, but lately the caregiver were sick, they are trying to have an alternate caregiver, but the patient was confused, agitated and was brought to the hospital. CT head was negative. Seen by Neurology and no acute stroke, small vessel disease. She also has fibromyalgia. CBC was unremarkable. Chem profile was unremarkable. B12 levels were normal. Urine was negative for infection. COVID test was negative. The patient's son expressed that he would like to take her home, rather than her staying at home, but in the meantime, he wants medications adjusted, so the best option would [facility] with a psychiatrist and staff. [facility] and staff. She is already started on Aricept for dementia. FINAL DIAGNOSES: 1. Progressive dementia. 2. Alzheimer's disease. 3. Fibromyalgia. 4. COPD. 5. Hypertension. 6. Arthritis. DISPOSITION: Home. See [facility] for discharge medications. GENNY DR: Hanna TID: [id number]
== END 2021-02-12 17:06 | DRG 884 ==
LOC: ER 18:40 → 5 NORTH 21:12
PROVIDERS: ADMIT Internal Medicine; ATTEND Student in an Organized Health Care Education/Training Program
DX: F03.90 Unspecified dementia, unspecified severity, without behavioral disturbance, psychotic disturbance, mood disturbance, and anxiety (principal); D32.9 Benign neoplasm of meninges, unspecified; E03.9 Hypothyroidism, unspecified; E78.5 Hyperlipidemia, unspecified; I10 Essential (primary) hypertension; J44.9 Chronic obstructive pulmonary disease, unspecified; M79.7 Fibromyalgia; M81.0 Age-related osteoporosis without current pathological fracture; Z82.49 Family history of ischemic heart disease and other diseases of the circulatory system; Z87.891 Personal history of nicotine dependence; Z90.710 Acquired absence of both cervix and uterus; G89.29 Other chronic pain; M19.90 Unspecified osteoarthritis, unspecified site; Z88.0 Allergy status to penicillin; Z88.8 Allergy status to other drugs, medicaments and biological substances; Z20.822 Contact with and (suspected) exposure to COVID-19
CPT/HCPCS: 36415; 70450; 71045; 80053; 81001; 82550; 82607; 84425; 85025; 87426; 94640; 96361; 96374; J2060; J7030; J7512; U0003; U0005; 97110-GP; 97535-GO; 99285-25; G0378; J7613; J7626